=== PATIENT | female | born 1950 | race Caucasian/White ===

== ENCOUNTER 2020-11-03 13:02 | Outpatient (REF) | payer MEDICARE, SELFPAY ==
[2020-11-03 13:38] LABS: MANUAL DIFF FLAG NO
[2020-11-03 13:46] LABS: Basophils Absolute Auto 0.1 X10*3/uL (0.0-0.2); Basophils Percent Auto 0.8 % (0-2); Eosinophils Absolute Auto 0.1 X10*3/uL (0.0-0.4); Eosinophils Percent Auto 1.1 % (0-4); Hemoglobin 14.1 g/dl (12.0-16.0); Imm Gran Abs Auto 0.02 X10*3/uL (0.00-0.03); Imm Gran Pct Auto 0.3 % (0.0-0.4); Lymphocytes Absolute Auto 1.8 X10*3/uL (1.2-4.9); Lymphocytes Percent Auto 29.5 % (20-40); Mean Corpuscular Hemoglobin 30.1 pg (27.0-33.0); Mean Corpuscular Volume 93.8 fL (80-98); Mean Platelet Volume 12.4 fL (9.4-12.3); Monocytes Absolute Auto 0.4 X10*3/uL (0.1-1.2); Monocytes Percent Auto 5.7 % (2-11); Neutrophils Absolute Auto 3.8 X10*3/uL (2.0-8.3); Neutrophils Percent Auto 62.6 % (45-73); Platelet Count 210 X10*3/uL (160-400); Red Blood Count 4.69 X10*6/uL (4.20-5.50); Red Cell Distribution Width 12.6 % (11.0-16.0); White Blood Count 6.1 X10*3/uL (4.8-10.8)
[2020-11-03 13:56] LABS: Glucose Urine UA NEG (NEG); Leukocyte Esterase Urine 2+ (NEG); Nitrite Urine NEG (NEG); Specific Gravity - Urine 1.025 (1.005-1.025); UACC Culture Trigger YES; Urine Blood NEG (NEG); Urine Ketones NEG (NEG); Urine Protein NEG (NEG-TRACE)
[2020-11-03 13:59] LABS: Appearance Urine CLEAR; Color Urine YELLOW
[2020-11-03 14:23] LABS: Bacteria Urine 1+ /LPF; Squamous Epithelial Cell Urine 2+ /LPF
[2020-11-03 14:24] LABS: Alanine Aminotransferase 35 U/L (0-31); Albumin Level 4.4 g/dL (3.5-5.0); Alkaline Phosphatase 73 U/L (39-117); Anion Gap 13 (12-20); Aspartate Amino Transferase 24 U/L (5-31); Bilirubin Total 0.6 mg/dL (0.0-1.0); Blood Urea Nitrogen 15 mg/dL (9-16); Carbon Dioxide 30 mmol/L (22-29); Chloride 104 mmol/L (96-108); Cholesterol 177 mg/dL; Estimated Glomerular Filt Rate > 60; Glucose Fasting 100 mg/dL (60-99); HDL Cholesterol 67 mg/dL; LDL Cholesterol Calculated 97 mg/dl; Potassium 4.1 mmol/L (3.3-5.1); Sodium 143 mmol/L (135-145); Total Protein 7.2 g/dL (6.5-8.0); Triglycerides 65 mg/dL
[2020-11-03 14:33] LABS: Erythrocyte Sedimentation Rate 7 MM/HR (0-20)
[2020-11-03 14:44] LABS: TSH reflex Free T4 0.67 uIU/mL (0.32-4.0)
== END 2020-11-03 13:03 | disposition home or self-care (01) ==
LOC: HO.LAB 13:02
PROVIDERS: PCP Internal Medicine; Visit Provider Internal Medicine
DX: Z00.00 Encounter for general adult medical examination without abnormal findings (principal); I10 Essential (primary) hypertension
CPT/HCPCS: 36415; 80053; 80061; 81001; 81003; 84443; 85025; 85652; 87086

== ENCOUNTER 2021-03-08 11:49 | Outpatient (REF) | payer MEDICARE, SELFPAY ==
--- NOTE | ~2021-03-08 | XR_ITS ---
EXAMINATION: XR SHOULDER, RIGHT CLINICAL INFORMATION: Pain. COMPARISON: None TECHNIQUE: AP external rotation, Grashey, scapular Y, and axillary views of the right shoulder. FINDINGS: There is loss of right glenohumeral and AC joint space with periarticular spurring. No acute fracture, loose bodies or soft tissue swelling seen. XR/XR shoulder RT min 2V IMPRESSION: Degenerative changes right AC joint and right glenohumeral joint.
== END 2021-03-08 11:50 | disposition home or self-care (01) ==
LOC: HO.HOSX 11:49
PROVIDERS: Visit Provider Orthopaedic Surgery
DX: M25.511 Pain in right shoulder (principal)
CPT/HCPCS: 20610; 73030; 99212; J1040; J1100

== ENCOUNTER 2021-10-22 13:54 | Outpatient (REF) | payer MEDICARE, SELFPAY ==
--- NOTE | ~2021-10-22 | MM_ITS ---
EXAMINATION: MM SCREENING DIGITAL BREAST TOMOSYNTHESIS, BILATERAL CLINICAL INFORMATION: Screening. Asymptomatic. Prior mammography from [place] currently unavailable. Age 71. Prior history benign biopsy 1981. No known family history breast cancer. The lifetime risk of breast cancer based on the Tyrer-Cuzick Model is 5%. COMPARISON: None. TECHNIQUE: Digital breast tomosynthesis is performed in both the craniocaudal and mediolateral oblique views along with computer-aided detection (CAD). Synthesized 2D images are generated from the tomosynthesis. FINDINGS: There are scattered areas of fibroglandular density (ACR BI-RADS breast composition Category b). Breast tissue composition borders on predominantly fatty. Background stromal and fibroglandular densities are unremarkable. There is intramammary node mid upper outer left breast with peripheral fatty hilus on tomography. There is no significant mass or architectural abnormality. No abnormal calcifications. There are dermal lesions overlying the anterior upper and posterior midline lower left breast and dermal lesion overlying the inferior posterior medial right breast. The axilla are unremarkable. If prior outside mammography is made available, addendum will be made in an addendum report. MM/MM tomosynthesis screening BI IMPRESSION: No mammographic evidence of malignancy. ASSESSMENT: BI-RADS 2: Benign RECOMMENDATION: Routine annual mammography screening. This patient's information was entered into a reminder system with a target due date for their next mammogram.
== END 2021-10-22 13:55 | disposition home or self-care (01) ==
LOC: HO.MAMMO 13:54
PROVIDERS: Visit Provider Internal Medicine
DX: Z12.31 Encounter for screening mammogram for malignant neoplasm of breast (principal)
CPT/HCPCS: 77063; 77067

== ENCOUNTER 2022-03-05 13:45 | Emergency (ER) | payer MEDICARE, SELFPAY ==
--- NOTE | ~2022-03-05 | XR_ITS ---
EXAMINATION: XR SHOULDER, RIGHT CLINICAL INFORMATION: Atraumatic right shoulder pain. COMPARISON: 03/08/2021 right shoulder radiographs. TECHNIQUE: AP external rotation, Grashey, scapular Y, and axillary views of the right shoulder. FINDINGS: Mild right acromioclavicular and glenohumeral degenerative joint changes are seen. A small degenerative spurs seen off of the inferior articular surface of the humeral head. There is no acute fracture or dislocation. The soft tissues are unremarkable. XR/XR shoulder RT min 2V IMPRESSION: Mild right shoulder degenerative joint changes without acute abnormality or significant change.
[2022-03-05 14:19] VITALS: BP 149/72; PULSE 68; RESP 18; TEMP 37.1; O2SAT 99; BMI 25.1
--- NOTE | 2022-03-05 15:57 | ED_ITS ---
HPI - Extremity Problem General Chief complaint: Extremity Problem Stated complaint: shoulder inflammed Time Seen by Provider: 03/05/22 15:57 Source: patient Mode of arrival: ambulatory Limitations: no limitations History of Present Illness HPI Narrative: 71-year-old female with known right rotator cuff injury presents to the emergency department with complaints of right shoulder pain, worse with movement overhead motions. Patient tells me that she is followed by an orthopedic surgeon that has told her to get injections every 3 months and or surgery. Patient tells me she refused both of them. She tells me she has not seen her orthopedic doctor for a while, she reports that her pain is severe today and that is why she decided to come in. She denies numbness and tingling at this time however she tells me that from time to time she gets numbness and tingling down her right shoulder moving into her hands. Complaint: joint pain Onset (ago): month(s) Pain Consistency: constant Location: right Quality: aching Radiation: none Relieving factors: nothing Exacerbating factors: range of motion and other (overhead motion ) Associated symptoms: denies other symptoms Related Data Home Medications Medication Instructions Recorded Confirmed cholecalciferol (vitamin D3) 25 25 mcg PO DAILY 11/14/20 11/03/21 mcg (1,000 unit) capsule Previous Rx's Medication Instructions Recorded nabumetone 500 mg tablet 500 mg PO BID PRN pain 30 days #60 05/22/21 tabs dexlansoprazole 60 mg 60 mg PO DAILY 90 days #90 caps 11/02/21 capsule,biphase delayed release (Dexilant) hydrochlorothiazide 25 mg tablet 25 mg PO DAILY #90 tabs 11/19/21 enalapril maleate 2.5 mg tablet 2.5 mg PO DAILY #90 tabs 12/13/21 Allergies Allergy/AdvReac Type Severity Reaction Status Date / Time No Known Allergies Allergy Verified 11/03/21 03:03 [No Known Allergies*] Review of Systems Review of Systems: Constitutional : No Weight loss, No Fever, No Chills, No Fatigue, No Malaise ENT/Mouth : No sore throat, No Rhinorrhea Eyes: No Eye Pain, No Swelling, No Redness Cardiovascular : No Chest Pain, No SOB, No Dyspnea on Exertion, No Orthopnea, No Edema, No Palpitations Respiratory : No Cough, No Sputum, No Wheezing Gastrointestinal : No Nausea, No Vomiting, No Diarrhea, No Constipation, No abdominal Pain, No Hematochezia, No Melena Genitourinary : No Dysuria, No Urinary Frequency, No Hematuria, Musculoskeletal : + joint pain, No Myalgias, No Joint Swelling Skin : No Skin Lesions, No rash Neuro : No Weakness, No Numbness, No Dizziness, No Headache Psych : No Anxiety/Panic, No Depression All other systems reviewed and are negative Yes all other systems are reviewed and are negative [facility] Past Medical History Attestation statement: The following information was validated with the patient. Source: old records reviewed and nursing notes reviewed Surgical History H/O local excision of skin lesion History of cholecystectomy History of colonoscopy Family History Family History Father CVD (cardiovascular disease) Mother No problems noted. Daughter In good health Sister In good health Sister In good health Sister In good health Brother In good health Social History Social History Housing: Apartment Alcohol intake: never Patient Tobacco Use Status: Never used Tobacco Second Hand Smoke Exposure: Yes service: No Current occupational status: retired Physical Exam Vital Signs: Vital Signs: Last Vital Signs Temp 98.8 F 03/05/22 14:19 Pulse 68 03/05/22 14:19 Resp 18 03/05/22 14:19 BP 149/72 H 03/05/22 14:19 Pulse Ox 99 03/05/22 14:19 O2 Del Method 03/05/22 14:19 BMI result Body Mass Index 25.1 VSS Appearance: Alert.? Oriented X3.? No acute distress.? Head: Normocephalic, atraumatic, no step-offs or deformities Eyes: Pupils equal, round and reactive to light.? ENT: Pharynx normal.? Neck: Normal inspection.? Neck supple.? CVS: Normal heart rate and rhythm.? Pulses normal.? Respiratory: No respiratory distress.? Breath sounds normal.? Abdomen: Soft and nontender.? Skin: Skin warm and dry.? Normal skin color.? Normal skin turgor.? Extremities: No lower extremity edema.? No calf ttp. 5/5 strength to bilateral upper and lower extremities Full ROM to b/l shoulders, 2+ radial pulses equal and b/l. No wrist drop b/l Back: No midline tenderness, no C-spine tenderness, full range of motion, no CVA tenderness bilaterally Neuro: Oriented X 3.? No motor deficit.? No sensory deficit. CN 2-12 intact Course Reevaluation(s) Reevaluation #1: Educated, advised her to follow-up with her orthopedic surgeon as they did recommend cervical have injections and/or surgery. I explained to her that this cannot be 6 in emergency department. Will provide her with Toradol for pain. A t this time patient will be discharged home with strict return precautions. Advised her to return with new or worsening symptoms. Comfortable discharge home MDM - Extremity (Nontraumatic) MDM Narrative Medical decision making narrative: [id number] 71-year-old female presents with right-sided atraumatic shoulder pain worse with movement particularly overhead. Physical exam w/ pain w/ rom of right shoulder however, NV intact. No wrist drop b/l. Unlikely that this is complete ligament or tendon tear. Likely muscle strain or rotator cuff injury Advised patient that x-ray only works at fractures, dislocations soft tissue swelling, she will likely require an MRI for further evaluation of it is still bothering her. Plan at this time is imaging Medical Records Attestation: I reviewed the patient's medical records. Lab Data Attestation: I reviewed the patient's lab results. Critical Care Time Critical Care Time Critical Care Time: No Discharge Plan Discharge Clinical Impression: Pain in right shoulder Patient Disposition: Home, Self-Care Instructions: Arthralgia (ED), Shoulder Pain (ED), Warm Compress or Soak (ED) Additional Instructions: Take your medications as prescribed. If you were prescribed antibiotics today, it is important that you take your medication to their entirety, do not skip any doses, do not finish them early. Follow-up with your primary care provider this week. Return to the emergency department with new or worsening symptoms. Such as fevers, chills, chest pain, shortness of breath, nausea, vomiting, dizziness, headache, vision changes, lethargy In case of emergency call 911 No acute findings on your x-ray, that you should follow-up with your orthopedic doctor and/or orthopedic surgeon as you may require MRI for further evaluation Prescriptions: No Action hydrochlorothiazide 25 mg tablet 25 mg PO DAILY Qty: 90 1RF enalapril maleate 2.5 mg tablet 2.5 mg PO DAILY Qty: 90 1RF cholecalciferol (vitamin D3) 25 mcg (1,000 unit) capsule 25 mcg PO DAILY nabumetone 500 mg tablet 500 mg PO BID PRN (Reason: pain) 30 Days Qty: 60 5RF Dexilant 60 mg capsule,biphase delayed releas 60 mg PO DAILY 90 Days Qty: 90 3RF Referrals: [facility] [place] [Provider Group] - 2 weeks Denys Gonsalves MD [Primary Care Provider] - 2 days Stand Alone Forms: Work/School Release
[2022-03-05] MEDS: Ketorolac Tromethamine 15 MG/ML VIAL 30 MG IM (17:19)
== END 2022-03-05 17:29 | disposition home or self-care (01) ==
PROVIDERS: Emergency Provider Student in an Organized Health Care Education/Training Program; PCP Internal Medicine
DX: M25.511 Pain in right shoulder (principal); Z79.899 Other long term (current) drug therapy
CPT/HCPCS: 73030; 96372; 99283; 99284; J1885

== ENCOUNTER → 2022-04-12 11:34 | Outpatient (BNVA) | payer MEDICARE, SELFPAY | PROVIDERS: PCP Internal Medicine; Referring Provider Internal Medicine; Visit Provider Nurse Practitioner | DX: Z01.818 Encounter for other preprocedural examination (principal); Z86.010 Personal history of colon polyps | CPT/HCPCS: 99202 ==

== ENCOUNTER 2022-05-10 08:48 | Outpatient (REF) | payer OTHER, SELFPAY ==
[2022-05-10 09:17] LABS: MANUAL DIFF FLAG NO
[2022-05-10 09:49] LABS: Basophils Absolute Auto 0.1 X10*3/uL (0.0-0.2); Basophils Percent Auto 0.9 % (0-2); Eosinophils Absolute Auto 0.1 X10*3/uL (0.0-0.4); Eosinophils Percent Auto 1.6 % (0-4); Hematocrit 43.1 % (37.0-47.0); Imm Gran Abs Auto 0.03 X10*3/uL (0.00-0.03); Imm Gran Pct Auto 0.5 % (0.0-0.4); Lymphocytes Percent Auto 31.8 % (20-40); Mean Corpuscular HGB Conc 32.5 g/dl (31.0-35.0); Mean Corpuscular Hemoglobin 30.9 pg (27.0-33.0); Mean Corpuscular Volume 95.1 fL (80.0-98.0); Mean Platelet Volume 12.2 fL (9.4-12.3); Monocytes Absolute Auto 0.5 X10*3/uL (0.1-1.2); Monocytes Percent Auto 7.1 % (2-11); Neutrophils Absolute Auto 3.7 x10*3/uL (2.0-8.3); Neutrophils Percent Auto 58.1 % (45-73); Platelet Count 196 X10*3/uL (160-400); Red Blood Count 4.53 X10*6/uL (4.20-5.50); Red Cell Distribution Width 12.8 % (11.0-16.0); White Blood Count 6.4 X10*3/uL (4.8-10.8)
[2022-05-10 10:14] LABS: Alanine Aminotransferase 11 U/L (0-31); Albumin Level 4.2 g/dL (3.5-5.0); Alkaline Phosphatase 65 U/L (39-117); Anion Gap 15 (12-20); Aspartate Amino Transferase 14 U/L (5-31); Bilirubin Total 0.6 mg/dL (0.0-1.0); Blood Urea Nitrogen 21 mg/dL (9-16); Calcium 10.1 mg/dL (8.4-10.2); Carbon Dioxide 28 mmol/L (22-29); Chloride 104 mmol/L (96-108); Cholesterol 197 mg/dL; Estimated Glomerular Filt Rate > 60; Glucose Fasting 97 mg/dL (60-99); HDL Cholesterol 67 mg/dL; LDL Cholesterol Calculated 119 mg/dl; Potassium 4.1 mmol/L (3.3-5.1); Sodium 143 mmol/L (135-145); Total Protein 6.9 g/dL (6.5-8.0); Triglycerides 59 mg/dL
[2022-05-10 10:35] LABS: TSH reflex Free T4 0.91 uIU/mL (0.32-4.0); Vitamin D 25-OH Total 59.9 ng/mL (>30)
[2022-05-10 10:39] LABS: Appearance Urine Clear; Color Urine Yellow; Glucose Urine UA Negative (Negative); Leukocyte Esterase Urine Large (3+) (Negative); Nitrite Urine Negative (Negative); PH 5.5 (5.0-8.0); Specific Gravity - Urine 1.025 (1.005-1.025); Urine Blood Negative (Negative); Urine Ketones Trace mg/dL (Negative); Urine Protein Trace mg/dL (Neg-Trace)
[2022-05-10 10:48] LABS: Bacteria Urine 3+ (None Seen); Hyaline Casts Urine 0-2 /LPF (0-2); RBC Urine 0-2 /HPF (0-2); UACC Culture Trigger YES; WBC Urine 21-50 /HPF (0-5)
== END 2022-05-10 08:49 | disposition home or self-care (01) ==
LOC: HO.LAB 08:48
PROVIDERS: PCP Internal Medicine; Visit Provider Internal Medicine
DX: Z00.00 Encounter for general adult medical examination without abnormal findings (principal); I10 Essential (primary) hypertension; E55.9 Vitamin D deficiency, unspecified; E78.00 Pure hypercholesterolemia, unspecified
CPT/HCPCS: 36415; 80053; 80061; 81001; 82306; 84443; 85025; 87086

== ENCOUNTER 2022-07-27 13:16 | Emergency (ER) | payer OTHER, SELFPAY ==
--- NOTE | ~2022-07-27 | XR_ITS ---
EXAMINATION: XR humerus, SHOULDER , LEFT CLINICAL INFORMATION: Pain COMPARISON: None available at the time of this dictation. TECHNIQUE: AP external rotation, Grashey, scapular Y, and axillary views of the shoulder. Frontal lateral left humerus. FINDINGS: BONES: There is no fracture or dislocation, no osteolytic or osteoblastic lesion. JOINTS: Degenerative osteoarthritic changes of the glenohumeral joints evident by narrowing of joint space and developed osteophyte from the edges of articular surfaces. There is mild degenerative osteoarthritis of the acromioclavicular joint. SOFT TISSUE AND INCLUDED LUNG: Normal. XR/XR shoulder LT min 2V IMPRESSION: 1. 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 2. No fracture or dislocation.
--- NOTE | ~2022-07-27 | XR_ITS ---
EXAMINATION: XR humerus, SHOULDER , LEFT CLINICAL INFORMATION: Pain COMPARISON: None available at the time of this dictation. TECHNIQUE: AP external rotation, Grashey, scapular Y, and axillary views of the shoulder. Frontal lateral left humerus. FINDINGS: BONES: There is no fracture or dislocation, no osteolytic or osteoblastic lesion. JOINTS: Degenerative osteoarthritic changes of the glenohumeral joints evident by narrowing of joint space and developed osteophyte from the edges of articular surfaces. There is mild degenerative osteoarthritis of the acromioclavicular joint. SOFT TISSUE AND INCLUDED LUNG: Normal. XR/XR humerus LT IMPRESSION: 1. 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 2. No fracture or dislocation.
--- NOTE | ~2022-07-27 | XR_ITS ---
EXAMINATION: XR THORACIC SPINE CLINICAL INFORMATION: Compression fracture. COMPARISON: Chest radiograph done earlier the same day. Chest radiograph dated 05/19/2019. TECHNIQUE: 4 views of the thoracic spine were obtained. FINDINGS: Mild S-shaped scoliotic curvature of the thoracolumbar spine. 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 Findings are unchanged when compared to the radiograph dated 05/19/2019. No acute fracture or subluxation. No new loss of vertebral body height. No concerning lytic or blastic osseous lesion. Right upper quadrant surgical clips. XR/XR thoracic spine 3V IMPRESSION: 1. No acute fracture or subluxation. 2. 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
--- NOTE | ~2022-07-27 | XR_ITS ---
EXAMINATION: XR chest 2V CLINICAL INFORMATION: Pain COMPARISON: 2019 TECHNIQUE: XR chest 2V Lungs and Julieta: Both lungs are clear. Pleura: Normal. Costophrenic angles are sharp. No pneumothorax. Heart: The heart is normal in size. Mediastinum: The mediastinum is within normal limits.. Bones: There is compression fracture of lower dorsal vertebra seen on lateral view indeterminant age. XR/XR chest 2V IMPRESSION: 1. No radiographic evidence of acute cardiopulmonary disease. 2. Compression fracture lower dorsal vertebra indeterminant age. May consider correlation with follow-up x-ray dorsal spine to better visualize the fracture and/or MRI to determine the age of the fracture.
[2022-07-27 14:55] VITALS: BP 134/71; PULSE 80; RESP 16; TEMP 36.6; O2SAT 96; BMI 25.9
--- NOTE | 2022-07-27 14:56 | ED.EXTPRO ---
HPI - Extremity Problem General Chief complaint: Extremity Problem <MAC Das Last Filed: 07/27/22 15:01> Stated complaint: Arm pain/No Inj <MAC Das Last Filed: 07/27/22 15:01> Time Seen by Provider: 07/27/22 16:31 <MAC Das - Last Filed: 07/27/22 15:01> Source: patient <MAC Olivares Last Filed: 07/27/22 18:53> Mode of arrival: ambulatory <MAC Olivares Last Filed: 07/27/22 18:53> History of Present Illness HPI Narrative: 72-year-old female with a past medical history of HTN, GERD, vitamin-D deficiency, degenerative joint disease, presenting to the ED complaining of atraumatic left arm pain x1 week. Admits to similar symptoms in the past with arthritis to contralateral side. Has been taking Motrin at home with some relief. Denies known injury, trauma or fall. Denies chest pain, shortness of breath, numbness, tingling, weakness, abdominal pain <MAC Olivares Last Filed: 07/27/22 18:53> MD Complaint: extremity pain <MAC Olivares Last Filed: 07/27/22 18:53> Related Data Home medications: Home Medications Medication Instructions Recorded Confirmed cholecalciferol (vitamin D3) 25 25 mcg PO DAILY 11/14/20 11/03/21 mcg (1,000 unit) capsule Previous Rx's Medication Instructions Recorded nabumetone 500 mg tablet 500 mg PO BID PRN pain 30 days #60 05/22/21 tabs peg 3350-electrolytes 236 240 ml PO Q10M 1 day #4,000 mL 04/12/22 gram-22.74 gram-6.74 gram-5.86 gram solution (Golytely) hydrochlorothiazide 25 mg tablet 25 mg PO DAILY #90 tabs 05/21/22 enalapril maleate 2.5 mg tablet 2.5 mg PO DAILY #90 tabs 07/12/22 dexlansoprazole 60 mg 60 mg PO DAILY 90 days #90 caps 07/16/22 capsule,biphase delayed release (Dexilant) acetaminophen 500 mg tablet 500 mg PO Q6H PRN fever or pain 11/12/22 (Tylenol Extra Strength) #14 tabs lidocaine 5 % topical patch 1 patch topical DAILY PRN pain #30 07/27/22 (Lidoderm) ea naproxen 500 mg tablet 500 mg PO BID PRN pain 10 days #20 07/27/22 tabs <MAC Das - Last Filed: 07/27/22 15:01> Allergies/Adverse reactions: Allergies Allergy/AdvReac Type Severity Reaction Status Date / Time No Known Allergies Allergy Verified 07/27/22 14:59 [No Known Allergies*] <MAC Dsa - Last Filed: 07/27/22 15:01> Review of Systems Review of Systems: Constitutional: No Fever, No Chills, No Fatigue, No Malaise ENT/Mouth: No Ear Pain, No Nasal Congestion, No sore throat, No Rhinorrhea, No Swallowing Difficulty Eyes: No Eye Pain, No Swelling, No Redness, No Vision Changes Cardiovascular: No Chest Pain, No SOB, No Edema, No Palpitations Respiratory: No Cough, No Sputum, No Dyspnea Gastrointestinal: No Nausea, No Vomiting, No Diarrhea, No Constipation, No Abdominal pain Genitourinary: No Dysuria, No Urinary Frequency, No Hematuria, No Urinary Incontinence/retention, No Flank Pain Musculoskeletal: + joint pain, No Myalgias, No Joint Swelling Skin: No Skin Lesions, No rash Neuro: No Weakness, No Numbness, No Paresthesias, No Dizziness, No Headache <MAC Olivares - Last Filed: 07/27/22 18:53> Yes all other systems are reviewed and are negative <MAC Olivares Last Filed: 07/27/22 18:53> Constitutional: Constitutional: Reports as per HPI <MAC Olivares Last Filed: 07/27/22 18:53> PMF Past Medical History Attestation statement: The following information was validated with the patient. <MAC Olivares Last Filed: 07/27/22 18:53> Medical History: Medical History Benign essential hypertension Degenerative joint disease of right shoulder GERD without esophagitis Overweight (BMI 25.0-29.9) Vitamin D deficiency <MAC Das Last Filed: 07/27/22 15:01> Surgical History: Surgical History H/O local excision of skin lesion History of cholecystectomy History of colonoscopy <MAC Das - Last Filed: 07/27/22 15:01> Family History Family History: Family History Father CVD (cardiovascular disease) Mother No problems noted. Daughter In good health Sister In good health Sister In good health Sister In good health Brother In good health <MAC Das - Last Filed: 07/27/22 15:01> Social History Social History: Social History Housing: Apartment Alcohol intake: never Patient Tobacco Use Status: Never used Tobacco Second Hand Smoke Exposure: Yes Advance Directives: No Advance Directives Information Provided: Yes service: No Current occupational status: retired <MAC Das - Last Filed: 07/27/22 15:01> Physical Exam Vital Signs: Vital Signs: Last Vital Signs Temp 97.9 F 07/27/22 14:55 Pulse 80 07/27/22 14:55 Resp 16 07/27/22 14:55 BP 134/71 07/27/22 14:55 Pulse Ox 96 07/27/22 14:55 O2 Del Method 07/27/22 14:55 BMI result Body Mass Index 25.9 <MAC Das - Last Filed: 07/27/22 15:01> Vital Signs: Last Vital Signs Temp 97.9 F 07/27/22 14:55 Pulse 80 07/27/22 14:55 Resp 16 07/27/22 14:55 BP 134/71 07/27/22 14:55 Pulse Ox 96 07/27/22 14:55 O2 Del Method 07/27/22 14:55 BMI result Body Mass Index 25.9 <MAC Olivares - Last Filed: 07/27/22 18:53> Const: General: cooperative, healthy appearing and no acute distress <MAC Olivares - Last Filed: 07/27/22 18:53> Orientation/consciousness: patient oriented x3 <MAC Olivares - Last Filed: 07/27/22 18:53> Limitations: no limitations <MAC Olivares - Last Filed: 07/27/22 18:53> HEENT: Head: Yes normal to inspection and Yes atraumatic <MAC Olivares - Last Filed: 07/27/22 18:53> Ears: hearing grossly normal bilaterally <MAC Olivares - Last Filed: 07/27/22 18:53> General nose exam: Normal external nose present <MAC Olivares - Last Filed: 07/27/22 18:53> Face and sinus: Yes normal facial exam <MAC Olivares - Last Filed: 07/27/22 18:53> Eyes: General: appearance normal, both eyes and all related structures <MAC Olivares - Last Filed: 07/27/22 18:53> EOM: EOMs intact bilaterally <MAC Olivares - Last Filed: 07/27/22 18:53> Neck: Neck: Yes normal visual inspection and Yes no meningeal signs <MAC Olivares - Last Filed: 07/27/22 18:53> Resp: Effort & Inspection: normal respiratory effort and no respiratory distress <MAC Olivares - Last Filed: 07/27/22 18:53> Auscultation: clear to auscultation bilaterally, no crackles, no rales, no rhonchi and no wheezes <MAC Olivares - Last Filed: 07/27/22 18:53> Cardio: Rate: regular rate <MAC Olivares - Last Filed: 07/27/22 18:53> Heart sounds: S1 normal heart sound present and S2 normal heart sound present <MAC Olivares - Last Filed: 07/27/22 18:53> Peripheral pulses: Peripheral pulses 2+ throughout <MAC Olivares - Last Filed: 07/27/22 18:53> Back/Spine/Pelvis: Other: No midline thoracic/lumbar spinous tenderness/step-off or deformity <MAC Olivares - Last Filed: 07/27/22 18:53> Skin: Rashes: no rashes <MAC Olivares - Last Filed: 07/27/22 18:53> Wounds: no wounds <MAC Olivares - Last Filed: 07/27/22 18:53> Neuro: General: patient oriented x3, gait normal, tone normal, moves all extremities and no meningeal signs <MAC Olivares Last Filed: 07/27/22 18:53> Gait exam (Neuro): Normal gait present <MAC Olivares Last Filed: 07/27/22 18:53> Extrem: Other: + mild right shoulder/upper humerus tenderness to palpation. No appreciable deformity/swelling/erythema or ecchymosis. Neurovascularly intact distally. Full range of motion intact. <MAC Olivares Last Filed: 07/27/22 18:53> General: Yes normal to inspection <MAC Olivares Last Filed: 07/27/22 18:53> Course Course Course Narrative: XR shoulder LT min 2V/XR humerus LT IMPRESSION:? 1.? 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 2.? No fracture or dislocation. ? XR chest 2V IMPRESSION: 1.? No radiographic evidence of acute cardiopulmonary disease. 2.? Compression fracture lower dorsal vertebra indeterminant age. May consider correlation with follow-up x-ray dorsal spine to better visualize the fracture and/or MRI to determine the age of the fracture. > patient denies back pain at present. Denies known vertebral fracture/injury > obtain dedicated thoracic x-ray -no leukocytosis. Troponin 10.7 > will obtain 3 hour repeat -1831--repeat troponin without rise, mi unlikely XR thoracic spine 3V IMPRESSION: 1.? No acute fracture or subluxation. ? 2.? 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 <MAC Olivares Last Filed: 07/27/22 18:53> Reevaluation(s) Reevaluation #1: RME - 72 YO F c PMHx of HTN, arthritis presenting to the ED c c/o left shoulder pain x 1 week atraumatic. She had it before on the right shoulder but that has resolved. Denies CP/SOB/paresthesias or any other cardiac related complaints. Has been trying tylenol/motrin and mild symptomatic relief. Plan: Stable will obtain Xray of left shoulder/arm. EKG no labs due to patient denies any other symptoms reports she believes it arthritis. <MAC Das - Last Filed: 07/27/22 15:01> Time: 14:56 <MAC Das - Last Filed: 07/27/22 15:01> MDM - Extremity (Nontraumatic) MDM Narrative Medical decision making narrative: 72-year-old female with a past medical history of HTN, GERD, vitamin-D deficiency, degenerative joint disease, presenting to the ED complaining of atraumatic left arm pain x1 week. On exam vital signs stable, NAD, nontoxic appearing, physical exam as above with reproducible right arm/shoulder tenderness. Concern for arthritis vs ? Fracture vs atypical ACS. Low suspicion for dissection, pulmonary embolism, or pneumonia Plan: EKG, labs, imaging <MAC Olivares - Last Filed: 07/27/22 18:53> Medical Records Attestation: I reviewed the patient's medical records. <MAC Olivares - Last Filed: 07/27/22 18:53> Lab Data Attestation: I reviewed the patient's lab results. <MAC Olivares - Last Filed: 07/27/22 18:53> Result diagrams: : 07/27/22 15:21 07/27/22 15:21 <MAC Das - Last Filed: 07/27/22 15:01> Labs: Lab Results 07/27/22 07/27/22 07/27/22 Range/Units 15:21 15:21 15:21 WBC 7.3 (4.8-10.8) X10*3/uL RBC 4.84 (4.20-5.50) X10*6/uL Hgb 14.5 (12.0-16.0) g/dl Hct 45.7 (37.0-47.0) % MCV 94.4 (80.0-98.0) fL MCH 30.0 (27.0-33.0) pg MCHC 31.7 (31.0-35.0) g/dl RDW 12.7 (11.0-16.0) % Plt Count 229 (160-400) X10*3/uL MPV 12.0 (9.4-12.3) fL Immature Gran % (Auto) 0.3 (0.0-0.4) % Neut % (Auto) 62.7 (45-73) % Lymph % (Auto) 27.8 (20-40) % [place] % (Auto) 6.9 (2-11) % Eos % (Auto) 1.6 (0-4) % Baso % (Auto) 0.7 (0-2) % Lymph # (Auto) 2.0 (1.2-4.9) X10*3/uL [place] # (Auto) 0.5 (0.1-1.2) X10*3/uL Eos # (Auto) 0.1 (0.0-0.4) X10*3/uL Baso # (Auto) 0.1 (0.0-0.2) X10*3/uL Abs Immat Gran (auto) 0.02 (0.00-0.03) X10*3/uL Absolute Neuts (auto) 4.6 (2.0-8.3) x10*3/uL Absolute Nucleated RBC 0.000 (0.0-0.012) X10*3/uL Nucleated RBC % (auto) 0.0 (0.0-0.2) /100WBC PT 11.1 (10.0-13.1) SEC INR 1.0 (0.9-1.1) Sodium 142 (135-145) mmol/L Potassium 3.9 (3.3-5.1) mmol/L Chloride 102 (96-108) mmol/L Carbon Dioxide 26 (22-29) mmol/L Anion Gap 18 (12-20) BUN 17 H (9-16) mg/dL Creatinine 0.80 (0.5-1.4) mg/dL Estim Creat Clear Calc 52.9 Estimated GFR > 60 Random Glucose 96 (60-115) mg/dL Calcium 10.7 H (8.4-10.2) mg/dL Magnesium 2.1 (1.6-2.6) mg/dL Total Bilirubin 0.4 (0.0-1.0) mg/dL AST 17 (5-31) U/L ALT 21 (0-31) U/L Alkaline Phosphatase 73 (39-117) U/L Troponin I High Sens (<3.5-17.0) ng/L Total Protein 7.6 (6.5-8.0) g/dL Albumin 4.6 (3.5-5.0) g/dL Hold Green Top 07/27/22 07/27/22 07/27/22 Range/Units 15:21 15:21 18:00 WBC (4.8-10.8) X10*3/uL RBC (4.20-5.50) X10*6/uL Hgb (12.0-16.0) g/dl Hct (37.0-47.0) % MCV (80.0-98.0) fL MCH (27.0-33.0) pg MCHC (31.0-35.0) g/dl RDW (11.0-16.0) % Plt Count (160-400) X10*3/uL MPV (9.4-12.3) fL Immature Gran % (Auto) (0.0-0.4) % Neut % (Auto) (45-73) % Lymph % (Auto) (20-40) % [place] % (Auto) (2-11) % Eos % (Auto) (0-4) % Baso % (Auto) (0-2) % Lymph # (Auto) (1.2-4.9) X10*3/uL [place] # (Auto) (0.1-1.2) X10*3/uL Eos # (Auto) (0.0-0.4) X10*3/uL Baso # (Auto) (0.0-0.2) X10*3/uL Abs Immat Gran (auto) (0.00-0.03) X10*3/uL Absolute Neuts (auto) (2.0-8.3) x10*3/uL Absolute Nucleated RBC (0.0-0.012) X10*3/uL Nucleated RBC % (auto) (0.0-0.2) /100WBC PT (10.0-13.1) SEC INR (0.9-1.1) Sodium (135-145) mmol/L Potassium (3.3-5.1) mmol/L Chloride (96-108) mmol/L Carbon Dioxide (22-29) mmol/L Anion Gap (12-20) BUN (9-16) mg/dL Creatinine (0.5-1.4) mg/dL Estim Creat Clear Calc Estimated GFR Random Glucose (60-115) mg/dL Calcium (8.4-10.2) mg/dL Magnesium (1.6-2.6) mg/dL Total Bilirubin (0.0-1.0) mg/dL AST (5-31) U/L ALT (0-31) U/L Alkaline Phosphatase (39-117) U/L Troponin I High Sens 10.7 10.0 (<3.5-17.0) ng/L Total Protein (6.5-8.0) g/dL Albumin (3.5-5.0) g/dL Hold Green Top See Note <MAC Das - Last Filed: 07/27/22 15:01> Lab Results 07/27/22 07/27/22 07/27/22 Range/Units 15:21 15:21 15:21 WBC 7.3 (4.8-10.8) X10*3/uL RBC 4.84 (4.20-5.50) X10*6/uL Hgb 14.5 (12.0-16.0) g/dl Hct 45.7 (37.0-47.0) % MCV 94.4 (80.0-98.0) fL MCH 30.0 (27.0-33.0) pg MCHC 31.7 (31.0-35.0) g/dl RDW 12.7 (11.0-16.0) % Plt Count 229 (160-400) X10*3/uL MPV 12.0 (9.4-12.3) fL Immature Gran % (Auto) 0.3 (0.0-0.4) % Neut % (Auto) 62.7 (45-73) % Lymph % (Auto) 27.8 (20-40) % [place] % (Auto) 6.9 (2-11) % Eos % (Auto) 1.6 (0-4) % Baso % (Auto) 0.7 (0-2) % Lymph # (Auto) 2.0 (1.2-4.9) X10*3/uL [place] # (Auto) 0.5 (0.1-1.2) X10*3/uL Eos # (Auto) 0.1 (0.0-0.4) X10*3/uL Baso # (Auto) 0.1 (0.0-0.2) X10*3/uL Abs Immat Gran (auto) 0.02 (0.00-0.03) X10*3/uL Absolute Neuts (auto) 4.6 (2.0-8.3) x10*3/uL Absolute Nucleated RBC 0.000 (0.0-0.012) X10*3/uL Nucleated RBC % (auto) 0.0 (0.0-0.2) /100WBC PT 11.1 (10.0-13.1) SEC INR 1.0 (0.9-1.1) Sodium 142 (135-145) mmol/L Potassium 3.9 (3.3-5.1) mmol/L Chloride 102 (96-108) mmol/L Carbon Dioxide 26 (22-29) mmol/L Anion Gap 18 (12-20) BUN 17 H (9-16) mg/dL Creatinine 0.80 (0.5-1.4) mg/dL Estim Creat Clear Calc 52.9 Estimated GFR > 60 Random Glucose 96 (60-115) mg/dL Calcium 10.7 H (8.4-10.2) mg/dL Magnesium 2.1 (1.6-2.6) mg/dL Total Bilirubin 0.4 (0.0-1.0) mg/dL AST 17 (5-31) U/L ALT 21 (0-31) U/L Alkaline Phosphatase 73 (39-117) U/L Troponin I High Sens (<3.5-17.0) ng/L Total Protein 7.6 (6.5-8.0) g/dL Albumin 4.6 (3.5-5.0) g/dL Hold Green Top 07/27/22 07/27/22 07/27/22 Range/Units 15:21 15:21 18:00 WBC (4.8-10.8) X10*3/uL RBC (4.20-5.50) X10*6/uL Hgb (12.0-16.0) g/dl Hct (37.0-47.0) % MCV (80.0-98.0) fL MCH (27.0-33.0) pg MCHC (31.0-35.0) g/dl RDW (11.0-16.0) % Plt Count (160-400) X10*3/uL MPV (9.4-12.3) fL Immature Gran % (Auto) (0.0-0.4) % Neut % (Auto) (45-73) % Lymph % (Auto) (20-40) % [place] % (Auto) (2-11) % Eos % (Auto) (0-4) % Baso % (Auto) (0-2) % Lymph # (Auto) (1.2-4.9) X10*3/uL [place] # (Auto) (0.1-1.2) X10*3/uL Eos # (Auto) (0.0-0.4) X10*3/uL Baso # (Auto) (0.0-0.2) X10*3/uL Abs Immat Gran (auto) (0.00-0.03) X10*3/uL Absolute Neuts (auto) (2.0-8.3) x10*3/uL Absolute Nucleated RBC (0.0-0.012) X10*3/uL Nucleated RBC % (auto) (0.0-0.2) /100WBC PT (10.0-13.1) SEC INR (0.9-1.1) Sodium (135-145) mmol/L Potassium (3.3-5.1) mmol/L Chloride (96-108) mmol/L Carbon Dioxide (22-29) mmol/L Anion Gap (12-20) BUN (9-16) mg/dL Creatinine (0.5-1.4) mg/dL Estim Creat Clear Calc Estimated GFR Random Glucose (60-115) mg/dL Calcium (8.4-10.2) mg/dL Magnesium (1.6-2.6) mg/dL Total Bilirubin (0.0-1.0) mg/dL AST (5-31) U/L ALT (0-31) U/L Alkaline Phosphatase (39-117) U/L Troponin I High Sens 10.7 10.0 (<3.5-17.0) ng/L Total Protein (6.5-8.0) g/dL Albumin (3.5-5.0) g/dL Hold Green Top See Note <MAC Olivares - Last Filed: 07/27/22 18:53> ECG Data Attestation EKG: I personally reviewed and interpreted this ECG as follows: <MAC Olivares - Last Filed: 07/27/22 18:53> ECG interpretation date: 07/27/22 <MAC Olivares Last Filed: 07/27/22 18:53> ECG interpretation time: 14:59 <MAC Olivares - Last Filed: 07/27/22 18:53> Interpretation: EKG normal sinus rhythm at a rate of 76. P urine novel 142. QTC 461. No significant change when compared to priors. <MAC Olivares - Last Filed: 07/27/22 18:53> Discharge Plan Discharge Clinical Impression: Osteoarthritis <MAC Das - Last Filed: 07/27/22 15:01> Patient Disposition: Home, Self-Care <MAC Das - Last Filed: 07/27/22 15:01> Instructions: Osteoarthritis (ED) <MAC Das - Last Filed: 07/27/22 15:01> Additional Instructions: Your blood work was reassuring. Your x-ray shows osteoarthritis. Tylenol will help with pain. Additionally naproxen as an anti-inflammatory/pain medication, take with food. Lidoderm patches are numbing patches apply to painful area The dedicated x-ray of her back shows a probable congenital deformity. Please follow-up with her primary care doctor If he developed any urinary incontinence/retention, increasing or unremitting pain, weakness, fever return to the emergency department Almaraz an?lisis de jose g fue tranquilizador. Almaraz radiograf?a muestra osteoartritis. Tylenol ayudar? con el dolor. Adem?s, el naproxeno neida medicamento antiinflamatorio/analg?sico, t?archuleta con alimentos. Los parches de Lidoderm son parches anest?sicos que se aplican en el ?vee dolorida La radiograf?a dedicada de almaraz espalda muestra kate probable deformidad maria guadalupe?jorge. Por favor, emma un seguimiento con almaraz m?dico de atenci?n primaria. Si desarroll? incontinencia/retenci?n urinaria, dolor creciente o incesante, debilidad, fiebre, regrese al departamento de emergencias. <MAC Das - Last Filed: 07/27/22 15:01> Prescriptions: New acetaminophen [Tylenol Extra Strength] 500 mg tablet 500 mg PO Q6H PRN (Reason: fever or pain) Qty: 14 0RF lidocaine [Lidoderm] 5 % adhesive patch,medicated 1 patch topical DAILY MDD remove after 12 hours PRN (Reason: pain) Qty: 30 0RF Rx Instructions: leave on most painful area for up to 12 hrs naproxen 500 mg tablet 500 mg PO BID PRN (Reason: pain) 10 Days Qty: 20 0RF No Action hydrochlorothiazide 25 mg tablet 25 mg PO DAILY Qty: 90 1RF enalapril maleate 2.5 mg tablet 2.5 mg PO DAILY Qty: 90 1RF Dexilant 60 mg capsule,biphase delayed releas 60 mg PO DAILY 90 Days Qty: 90 3RF cholecalciferol (vitamin D3) 25 mcg (1,000 unit) capsule 25 mcg PO DAILY nabumetone 500 mg tablet 500 mg PO BID PRN (Reason: pain) 30 Days Qty: 60 5RF peg 3350-electrolytes [Golytely] 236-22.74-6.74 -5.86 gram recon soln 240 ml PO Q10M 1 Days Qty: 4000 0RF Rx Instructions: until fecal effluent is clear; do not exceed a total volume of 2,000 mL <MAC Das - Last Filed: 07/27/22 15:01> Referrals: Denys Gonsalves MD [Primary Care Provider] - 3 days Sylvie Richardson MD [Physician] - <MAC Das - Last Filed: 07/27/22 15:01> Print Language: Hungarian <MAC Das - Last Filed: 07/27/22 15:01>
--- NOTE | 2022-07-27 14:59 | ECG_ITS ---
Test Reason : LEFT ARM PAIN Blood Pressure : / mmHG Vent. Rate : 076 BPM Atrial Rate : 076 BPM P-R Int : 142 ms QRS Dur : 092 ms QT Int : 410 ms P-R-T Axes : 049 -26 028 degrees QTc Int : 461 ms Normal sinus rhythm Incomplete right bundle branch block Minimal voltage criteria for LVH, may be normal variant ( R in aVL ) Abnormal ECG When compared with ECG of 19-MAY-2019 15:47, No significant change was found Referred By: Whitley Hanks Electronically Signed By:BECCA BASSETT MD
[2022-07-27 15:27] LABS: MANUAL DIFF FLAG NO
[2022-07-27 15:29] LABS: Basophils Absolute Auto 0.1 X10*3/uL (0.0-0.2); Basophils Percent Auto 0.7 % (0-2); Eosinophils Absolute Auto 0.1 X10*3/uL (0.0-0.4); Eosinophils Percent Auto 1.6 % (0-4); Hematocrit 45.7 % (37.0-47.0); Hemoglobin 14.5 g/dl (12.0-16.0); Imm Gran Abs Auto 0.02 X10*3/uL (0.00-0.03); Imm Gran Pct Auto 0.3 % (0.0-0.4); Lymphocytes Percent Auto 27.8 % (20-40); Mean Corpuscular HGB Conc 31.7 g/dl (31.0-35.0); Mean Corpuscular Volume 94.4 fL (80.0-98.0); Monocytes Absolute Auto 0.5 X10*3/uL (0.1-1.2); Monocytes Percent Auto 6.9 % (2-11); Neutrophils Absolute Auto 4.6 x10*3/uL (2.0-8.3); Neutrophils Percent Auto 62.7 % (45-73); Platelet Count 229 X10*3/uL (160-400); Red Blood Count 4.84 X10*6/uL (4.20-5.50); Red Cell Distribution Width 12.7 % (11.0-16.0); White Blood Count 7.3 X10*3/uL (4.8-10.8)
[2022-07-27 15:39] LABS: Prothrombin Time 11.1 SEC (10.0-13.1)
[2022-07-27 16:20] LABS: Alanine Aminotransferase 21 U/L (0-31); Albumin Level 4.6 g/dL (3.5-5.0); Alkaline Phosphatase 73 U/L (39-117); Anion Gap 18 (12-20); Aspartate Amino Transferase 17 U/L (5-31); Bilirubin Total 0.4 mg/dL (0.0-1.0); Blood Urea Nitrogen 17 mg/dL (9-16); Calcium 10.7 mg/dL (8.4-10.2); Carbon Dioxide 26 mmol/L (22-29); Chloride 102 mmol/L (96-108); Creatinine Clr Calc Pharmacy 52.9; Estimated Glomerular Filt Rate > 60; Glucose Random 96 mg/dL (60-115); Magnesium 2.1 mg/dL (1.6-2.6); Potassium 3.9 mmol/L (3.3-5.1); Sodium 142 mmol/L (135-145); Total Protein 7.6 g/dL (6.5-8.0)
[2022-07-27 16:27] LABS: Troponin-I High Sensitivity 10.7 ng/L (<3.5-17.0)
--- NOTE | 2022-07-27 16:32 | ED.GENADULT ---
HPI - General Adult General Chief complaint: Extremity Problem Stated complaint: Arm pain/No Inj Time Seen by Provider: 07/27/22 16:31 Related Data Home Medications Medication Instructions Recorded Confirmed cholecalciferol (vitamin D3) 25 25 mcg PO DAILY 11/14/20 11/03/21 mcg (1,000 unit) capsule Previous Rx's Medication Instructions Recorded nabumetone 500 mg tablet 500 mg PO BID PRN pain 30 days #60 05/22/21 tabs peg 3350-electrolytes 236 240 ml PO Q10M 1 day #4,000 mL 04/12/22 gram-22.74 gram-6.74 gram-5.86 gram solution (Golytely) hydrochlorothiazide 25 mg tablet 25 mg PO DAILY #90 tabs 05/21/22 enalapril maleate 2.5 mg tablet 2.5 mg PO DAILY #90 tabs 07/12/22 dexlansoprazole 60 mg 60 mg PO DAILY 90 days #90 caps 07/16/22 capsule,biphase delayed release (Dexilant) Allergies Allergy/AdvReac Type Severity Reaction Status Date / Time No Known Allergies Allergy Verified 07/27/22 14:59 [No Known Allergies*] Review of Systems Review of Systems: Yes all other systems are reviewed and are negative Constitutional: Constitutional: Reports as per [facility] Past Medical History Attestation statement: The following information was validated with the patient. Medical History Benign essential hypertension Degenerative joint disease of right shoulder GERD without esophagitis Overweight (BMI 25.0-29.9) Vitamin D deficiency Surgical History H/O local excision of skin lesion History of cholecystectomy History of colonoscopy Family History Family History Father CVD (cardiovascular disease) Mother No problems noted. Daughter In good health Sister In good health Sister In good health Sister In good health Brother In good health Social History Social History Housing: Apartment Alcohol intake: never Patient Tobacco Use Status: Never used Tobacco Second Hand Smoke Exposure: Yes service: No Current occupational status: retired Physical Exam ED Vital Signs: Vital Signs - 24 hr 07/27/22 14:55 Temperature 97.9 F Pulse Rate 80 Respiratory Rate 16 Blood Pressure 134/71 Pulse Oximetry 96 Oxygen Delivery Method Room Air BMI result Body Mass Index 25.9 Const General: cooperative, healthy appearing and no acute distress Orientation/consciousness: patient oriented x3 Limitations: no limitations HENMT Head: Yes normal to inspection and Yes atraumatic Ears: hearing grossly normal bilaterally General nose exam: Normal external nose present Face and sinus: Yes normal facial exam Eyes General: appearance normal, both eyes and all related structures EOM: EOMs intact bilaterally Neck Neck: Yes normal visual inspection and Yes no meningeal signs Resp Effort & Inspection: normal respiratory effort and no respiratory distress Auscultation: clear to auscultation bilaterally Cardio Rate: regular rate Heart sounds: S1 normal heart sound present and S2 normal heart sound present GI Inspection: Yes normal to inspection Palpation (GI): Soft to palpation, nontender, no guarding and not rigid General: Yes no CVA tenderness Back/Spine/Pelvis Back: no CVA tenderness Skin Rashes: no rashes Wounds: no wounds Neuro General: patient oriented x3, tone normal and no meningeal signs Gait exam (Neuro): Normal gait present Extrem General: Yes normal to inspection Medical Decision Making Lab Data Result diagrams: 07/27/22 15:21 07/27/22 15:21 Labs: Lab Results 07/27/22 07/27/22 07/27/22 Range/Units 15:21 15:21 15:21 WBC 7.3 (4.8-10.8) X10*3/uL RBC 4.84 (4.20-5.50) X10*6/uL Hgb 14.5 (12.0-16.0) g/dl Hct 45.7 (37.0-47.0) % MCV 94.4 (80.0-98.0) fL MCH 30.0 (27.0-33.0) pg MCHC 31.7 (31.0-35.0) g/dl RDW 12.7 (11.0-16.0) % Plt Count 229 (160-400) X10*3/uL MPV 12.0 (9.4-12.3) fL Immature Gran % (Auto) 0.3 (0.0-0.4) % Neut % (Auto) 62.7 (45-73) % Lymph % (Auto) 27.8 (20-40) % Preston % (Auto) 6.9 (2-11) % Eos % (Auto) 1.6 (0-4) % Baso % (Auto) 0.7 (0-2) % Lymph # (Auto) 2.0 (1.2-4.9) X10*3/uL Preston # (Auto) 0.5 (0.1-1.2) X10*3/uL Eos # (Auto) 0.1 (0.0-0.4) X10*3/uL Baso # (Auto) 0.1 (0.0-0.2) X10*3/uL Abs Immat Gran (auto) 0.02 (0.00-0.03) X10*3/uL Absolute Neuts (auto) 4.6 (2.0-8.3) x10*3/uL Absolute Nucleated RBC 0.000 (0.0-0.012) X10*3/uL Nucleated RBC % (auto) 0.0 (0.0-0.2) /100WBC PT 11.1 (10.0-13.1) SEC INR 1.0 (0.9-1.1) Sodium 142 (135-145) mmol/L Potassium 3.9 (3.3-5.1) mmol/L Chloride 102 (96-108) mmol/L Carbon Dioxide 26 (22-29) mmol/L Anion Gap 18 (12-20) BUN 17 H (9-16) mg/dL Creatinine 0.80 (0.5-1.4) mg/dL Estim Creat Clear Calc 52.9 Estimated GFR > 60 Random Glucose 96 (60-115) mg/dL Calcium 10.7 H (8.4-10.2) mg/dL Magnesium 2.1 (1.6-2.6) mg/dL Total Bilirubin 0.4 (0.0-1.0) mg/dL AST 17 (5-31) U/L ALT 21 (0-31) U/L Alkaline Phosphatase 73 (39-117) U/L Troponin I High Sens (<3.5-17.0) ng/L Total Protein 7.6 (6.5-8.0) g/dL Albumin 4.6 (3.5-5.0) g/dL Hold Green Top 07/27/22 07/27/22 Range/Units 15:21 15:21 WBC (4.8-10.8) X10*3/uL RBC (4.20-5.50) X10*6/uL Hgb (12.0-16.0) g/dl Hct (37.0-47.0) % MCV (80.0-98.0) fL MCH (27.0-33.0) pg MCHC (31.0-35.0) g/dl RDW (11.0-16.0) % Plt Count (160-400) X10*3/uL MPV (9.4-12.3) fL Immature Gran % (Auto) (0.0-0.4) % Neut % (Auto) (45-73) % Lymph % (Auto) (20-40) % Preston % (Auto) (2-11) % Eos % (Auto) (0-4) % Baso % (Auto) (0-2) % Lymph # (Auto) (1.2-4.9) X10*3/uL Preston # (Auto) (0.1-1.2) X10*3/uL Eos # (Auto) (0.0-0.4) X10*3/uL Baso # (Auto) (0.0-0.2) X10*3/uL Abs Immat Gran (auto) (0.00-0.03) X10*3/uL Absolute Neuts (auto) (2.0-8.3) x10*3/uL Absolute Nucleated RBC (0.0-0.012) X10*3/uL Nucleated RBC % (auto) (0.0-0.2) /100WBC PT (10.0-13.1) SEC INR (0.9-1.1) Sodium (135-145) mmol/L Potassium (3.3-5.1) mmol/L Chloride (96-108) mmol/L Carbon Dioxide (22-29) mmol/L Anion Gap (12-20) BUN (9-16) mg/dL Creatinine (0.5-1.4) mg/dL Estim Creat Clear Calc Estimated GFR Random Glucose (60-115) mg/dL Calcium (8.4-10.2) mg/dL Magnesium (1.6-2.6) mg/dL Total Bilirubin (0.0-1.0) mg/dL AST (5-31) U/L ALT (0-31) U/L Alkaline Phosphatase (39-117) U/L Troponin I High Sens 10.7 (<3.5-17.0) ng/L Total Protein (6.5-8.0) g/dL Albumin (3.5-5.0) g/dL Hold Green Top See Note ECG Data Attestation: I personally reviewed and interpreted this ECG as follows: Prior ECG tracings: available for review Interpretation: EKG normal sinus rhythm at a rate of 76. Incomplete right bundle branch block. QTC 461. No STEMI. No significant change when compared to prior Discharge Plan Discharge Prescriptions: No Action hydrochlorothiazide 25 mg tablet 25 mg PO DAILY Qty: 90 1RF enalapril maleate 2.5 mg tablet 2.5 mg PO DAILY Qty: 90 1RF Dexilant 60 mg capsule,biphase delayed releas 60 mg PO DAILY 90 Days Qty: 90 3RF cholecalciferol (vitamin D3) 25 mcg (1,000 unit) capsule 25 mcg PO DAILY nabumetone 500 mg tablet 500 mg PO BID PRN (Reason: pain) 30 Days Qty: 60 5RF peg 3350-electrolytes [Golytely] 236-22.74-6.74 -5.86 gram recon soln 240 ml PO Q10M 1 Days Qty: 4000 0RF Rx Instructions: until fecal effluent is clear; do not exceed a total volume of 2,000 mL
== END 2022-07-27 19:02 | disposition home or self-care (01) ==
PROVIDERS: Physician Assistant; Physician Assistant Medical; Emergency Provider Emergency Medicine; PCP Internal Medicine
DX: M19.012 Primary osteoarthritis, left shoulder (principal); M79.602 Pain in left arm; I10 Essential (primary) hypertension; Z79.899 Other long term (current) drug therapy
CPT/HCPCS: 36415; 71046; 72072; 73030; 73060; 80053; 83735; 84484; 85025; 85610; 93005; 99283

== ENCOUNTER 2022-09-02 11:20 | Outpatient (REF) | payer OTHER, SELFPAY ==
--- NOTE | ~2022-09-02 | XR_ITS ---
EXAMINATION: XR AP BILATERAL KNEES STANDING XR LEFT KNEE XR RIGHT KNEE CLINICAL INFORMATION: Pain in bilateral knees. COMPARISON: Bilateral knees 12/07/2018. TECHNIQUE: AP bilateral knees standing, one view. Two views of each knee. FINDINGS: AP BILATERAL KNEE: There is mild reduction in the medial and lateral compartment joint space without bony erosive changes. There is mild periarticular spurring in the medial compartments. There are no loose bodies or joint effusions. LEFT KNEE: There is mild loss of patellofemoral compartment joint space with periarticular spurring. There is mild suprapatellar joint effusion. No loose bodies or bony erosive changes are seen. RIGHT KNEE: There is mild loss of patellofemoral component joint space with periarticular spurring. There are no bony erosive changes. There are no loose bodies. Mild suprapatellar joint effusion is seen. No visible acute fracture or dislocation. XR/XR knee standing BI IMPRESSION: Tricompartmental degenerative arthritic changes slightly worse in the medial compartments. There is mild suprapatellar joint effusion. No acute fracture or loose bodies seen.
== END 2022-09-02 11:21 | disposition home or self-care (01) ==
LOC: HO.HOSX 11:20
PROVIDERS: Visit Provider Orthopaedic Surgery
DX: M17.0 Bilateral primary osteoarthritis of knee (principal)
CPT/HCPCS: 20610; 73560; 73565; 99212; J1100

== ENCOUNTER 2022-11-21 15:18 | Outpatient (REF) | payer OTHER, SELFPAY ==
--- NOTE | ~2022-11-21 | MM_ITS ---
EXAMINATION: MM SCREENING DIGITAL BREAST TOMOSYNTHESIS, BILATERAL CLINICAL INFORMATION: Screening. Asymptomatic. The lifetime risk of breast cancer based on the Tyrer-Cuzick Model is 5%. COMPARISON: Mammography: 10/22/2021 (new baseline) TECHNIQUE: Digital breast tomosynthesis is performed in both the craniocaudal and mediolateral oblique views along with computer-aided detection (CAD). Synthesized 2D images are generated from the tomosynthesis. FINDINGS: There are scattered areas of fibroglandular density (ACR BI-RADS breast composition Category b). There are no significant masses, abnormal calcifications, or other abnormalities. No architectural abnormality or developing density or significant change from prior studies. Incidental intramammary node again seen posterior upper outer left breast. There are bilateral dermal lesions again seen overlying the breasts. MM/MM tomosynthesis screening BI IMPRESSION: No mammographic evidence of malignancy. ASSESSMENT: BI-RADS 2: Benign RECOMMENDATION: Routine annual mammography screening. This patient's information was entered into a reminder system with a target due date for their next mammogram.
== END 2022-11-21 15:19 | disposition home or self-care (01) ==
LOC: HO.MAMMO 15:18
PROVIDERS: PCP Internal Medicine; Visit Provider Internal Medicine
DX: Z12.31 Encounter for screening mammogram for malignant neoplasm of breast (principal)
CPT/HCPCS: 77063; 77067

== ENCOUNTER 2022-12-10 09:29 | Day surgery (SDC) | payer OTHER, SELFPAY ==
[2022-12-05 10:50] VITALS: BMI 25.9
--- NOTE | 2022-12-09 13:32 | HO.ANESPROP2 ---
HPI - Anesthesia Eval Consult details Narrative: 72yo F for Colonoscopy PMF Active Problems Active Problems: All Active Problems (Updated 10/29/22 @ 16:08 by Denys Gonsalves MD) Osteoporosis screening (Acute) Bilateral primary osteoarthritis of knee (Acute) Tubular adenoma of colon (Acute) Pre-op exam (Acute) Vitamin D deficiency (Acute) Annual physical exam (Acute) Colon cancer screening (Acute) Overweight (BMI 25.0-29.9) (Acute) Degenerative joint disease of right shoulder (Acute) GERD without esophagitis (Acute) Benign essential hypertension (Acute) Past Medical History Medical History Benign essential hypertension Degenerative joint disease of right shoulder GERD without esophagitis Overweight (BMI 25.0-29.9) Vitamin D deficiency Family History Family History Father CVD (cardiovascular disease) Mother No problems noted. Daughter In good health Sister In good health Sister In good health Sister In good health Brother In good health Surgical History Surgical History H/O local excision of skin lesion History of cholecystectomy History of colonoscopy Social History Social History Housing: Apartment Alcohol intake: never Patient Tobacco Use Status: Never used Tobacco e-Cigarette/Vaping Use: Never Used Second Hand Smoke Exposure: Yes service: No Current occupational status: retired Cognitive needs: No Hearing needs: No Vision needs: No Meds Allergies Allergy/AdvReac Type Severity Reaction Status Date / Time No Known Allergies Allergy Verified 10/29/22 15:38 [No Known Allergies*] Home Medications Medication Instructions Recorded Confirmed Last Taken Type cholecalciferol (vitamin D3) 25 25 mcg PO DAILY 11/14/20 10/29/22 Unknown History mcg (1,000 unit) capsule Exam Exam Date and Time: December 09, 2022 1332 Height,Weight and Vital Signs: Height 5 ft 1 in Weight 62.256 kg Pertinent Lab Results Pertinent Lab Results: Laboratory Tests 07/27/22 07/27/22 15:21 15:21 WBC 7.3 Hgb 14.5 Hct 45.7 Plt Count 229 Sodium 142 Potassium 3.9 Chloride 102 Carbon Dioxide 26 BUN 17 H Creatinine 0.80 Narrative Narrative: EKG 07/2022 Vent. Rate : 076 BPM ? ? Atrial Rate : 076 BPM ?? P-R Int : 142 ms? QRS Dur : 092 ms ? ? QT Int : 410 ms ? ? ? P-R-T Axes : 049 -26 028 degrees ?? QTc Int : 461 ms ? Normal sinus rhythm Incomplete right bundle branch block Minimal voltage criteria for LVH, may be normal variant ( R in aVL ) Abnormal ECG When compared with ECG of 19-MAY-2019 15:47, No significant change was found Assessment and Plan Assessment Anesthesia Assessment: Chart Reviewed
[2022-12-10 09:52] VITALS: BMI 25.9
[2022-12-10 10:00] VITALS: BP 159/70; PULSE 81; RESP 16; TEMP 36.9; O2SAT 98
[2022-12-10] MEDS: Lactated Ringers 1,000 ML 100 ML IVCONT (10:18)
--- NOTE | 2022-12-10 10:25 | P.HPSUR_ITS ---
Pre-Procedural Eval Section A Date of Service: 12/10/22 Section B Chief Complaint: screening Relevant Family History (Specify if Yes): No Relevant Social History: None Present Medications: see Short Stay Collaborative assessment Medical History: Significant History (Benign essential hypertension Degenerative joint disease of right shoulder GERD without esophagitis Overweight (BMI 25.0- 29.9) Vitamin D deficiency) History of Previous Operations: Relevant previous surgery/procedure and date(s) (H/O local excision of skin lesion History of cholecystectomy History of colonoscopy) Allergies: Allergies Allergy/AdvReac Type Severity Reaction Status Date / Time No Known Allergies Allergy Verified 10/29/22 15:38 [No Known Allergies*] Review of Systems Sugical H&P ROS: Negative: Constitution, Cardiovascular, Respiratory, Neurological, Psychiatric, Hem-Onc, Allergic/Immunologic, Gastrointestinal, Genitourinary, Musculoskeletal, Integumentary, Endocrine and Eyes/Ears/Nose/Throat Exam Surgical H&P Exam: Normal: HEENT, Normal: Heart, Normal: Lungs, Normal: Extremities, Normal: Abdomen, Normal: Skin and Normal: Neurological Plan Diagnosis/Plan: Unchanged I have reviewed the history and physical and performed a pertinent physical examination on my patient. No changes have occurred unless specified. Time Spent With Patient Time: Total time managing care of this patient today ____ minutes.
--- NOTE | 2022-12-10 10:27 | P.OP_ITS ---
Operative Note Operative Note Date of Service: 12/10/22 Narrative: Operative Information Procedure Description: Colonoscopy Indication: screening Anesthesia: MAC COLONOSCOPY Instrument: Olympus variable stiffness pediatric scope 190L Colonoscopy Monitoring: Vital signs and clinical assessment, continuous EKG monitoring, Pulse oximetry, Carbon Dioxide monitoring and blood pressure monitoring were done throughout the procedure. Colon withdrawal time was 12 minutes. Procedure: The patient was placed in the left lateral decubitis position and pre-procedure medications were administered. After a digital rectal examination of the ano-rectum, the video colonoscope was inserted into the rectum and advanced through the colon to the cecum/TI. The colonoscope was slowly withdrawn in a retrograde panoramic fashion and the colon mucosa was carefully examined including a retroflexed view of the rectum. Findings and interventions are described below. Procedure Difficulty: easy Findings: Terminal Ileum-normal Cecum:normal Ascending Colon: x1 sessile polyp 4-6 mm removed with cold forceps, x2 sessile polyps 7-9 mm removed with cold snare, few diverticula seen Transverse Colon -normal Descending Colon:normal Sigmoid Colon: moderate diverticulosis Rectum: Retroflexion with small internal hemorrhoids, grade I Anorectum - normal Colon preparation: [place] Bowel Preparation Scale Right colon; 2 Transverse colon: 2 Left colon; 2 (0 = Unprepared colon segment with mucosa not seen due to solid stool that cannot be cleared. 1 = Portion of mucosa of the colon segment seen, but other areas of the colon segment not well seen due to staining, residual stool and/or opaque liquid. 2 = Minor amount of residual staining, small fragments of stool and/or opaque liquid, but mucosa of colon segment seen well. 3 = Entire mucosa of colon segment seen well with no residual staining, small fragments of stool or opaque liquid) Impression and Post Procedure Diagnosis: polyps internal hemorrhoids diverticular disease Plan: High fiber diet leaflet Avoid straining at stool, epsom salts and sitz bath, anusol supps or cream Repeat Colonoscopy in 3 years or earlier if clinically indicated Above findings were reviewed with the patient and relevant handouts were provided if indicated.
--- NOTE | 2022-12-10 10:47 | P.CONAN_ITS ---
[facility] Active Problems Active Problems: All Active Problems (Updated 10/29/22 @ 16:08 by Denys Gonsalves MD) Osteoporosis screening (Acute) Bilateral primary osteoarthritis of knee (Acute) Tubular adenoma of colon (Acute) Pre-op exam (Acute) Vitamin D deficiency (Acute) Annual physical exam (Acute) Colon cancer screening (Acute) Overweight (BMI 25.0-29.9) (Acute) Degenerative joint disease of right shoulder (Acute) GERD without esophagitis (Acute) Benign essential hypertension (Acute) Past Medical History Medical History Benign essential hypertension Degenerative joint disease of right shoulder GERD without esophagitis Overweight (BMI 25.0-29.9) Vitamin D deficiency Family History Family History Father CVD (cardiovascular disease) Mother No problems noted. Daughter In good health Sister In good health Sister In good health Sister In good health Brother In good health Surgical History Surgical History H/O local excision of skin lesion History of cholecystectomy History of colonoscopy Social History Social History Housing: Apartment Alcohol intake: never Patient Tobacco Use Status: Never used Tobacco e-Cigarette/Vaping Use: Never Used Second Hand Smoke Exposure: Yes Use of substances other than those prescribed or required for medical reasons: No Are you DNR?: No Advance Directives: No Advance Directives Information Provided: Yes Recently lost weight without trying: No Nutrition Risks: No Nutritional Risk service: No Current occupational status: retired Cognitive needs: No Hearing needs: No Vision needs: No Meds Allergies Allergy/AdvReac Type Severity Reaction Status Date / Time No Known Allergies Allergy Verified 10/29/22 15:38 [No Known Allergies*] Active Medications: Current Medications Lactated Ringer's (Lr) 1,000 mls @ 100 mls/hr IVCONT .Q10H LEIGHANN Last Admin: 12/10/22 10:18 Dose: 100 mls/hr Home Medications Medication Instructions Recorded Confirmed Last Taken Type cholecalciferol (vitamin D3) 25 25 mcg PO DAILY 11/14/20 10/29/22 Unknown History mcg (1,000 unit) capsule Exam Exam Date and Time: December 10, 2022 1047 Height,Weight and Vital Signs: Height 5 ft 1 in Weight 62.142 kg Last Vital Signs Temp 98.5 F 12/10/22 10:00 Pulse 81 12/10/22 10:00 Resp 16 12/10/22 10:00 BP 159/70 H 12/10/22 10:00 Pulse Ox 98 12/10/22 10:00 O2 Del Method Room Air 12/10/22 10:00 Airway Mallampati Class: I TM Dist: >3cm Neck ROM: Full Heart: RRR Lungs: CTA Assessment and Plan Final Anesthetic Review ASA Class: II Final Preanesthetic Review: Meds/Rohitgs Chart Reviewed and Consent Obtained/Reviewed Patient Risk: Low Procedure Risk: Low Anesthetic Plan Anesthetic Plan: MAC: Disposition: Standard PACU
[2022-12-10 11:10] VITALS: BP 94/47; PULSE 65; RESP 16; TEMP 36.1; O2SAT 98
[2022-12-10 11:25] VITALS: BP 104/63; PULSE 82; RESP 16; O2SAT 100
[2022-12-10 11:43] VITALS: BP 127/62; PULSE 63; RESP 18; TEMP 36.1; O2SAT 98
== END 2022-12-10 12:49 | disposition home or self-care (01) ==
PROVIDERS: PCP Internal Medicine; Visit Provider Internal Medicine Gastroenterology
PROC: 0DJD8ZZ Inspection of Lower Intestinal Tract, Via Natural or Artificial Opening Endoscopic (ICD-10-PCS; CPT 45378; principal; 2022-12-10 11:00)
DX: Z12.11 Encounter for screening for malignant neoplasm of colon (principal); Z86.010 Personal history of colon polyps; D12.2 Benign neoplasm of ascending colon; K57.30 Diverticulosis of large intestine without perforation or abscess without bleeding; K64.0 First degree hemorrhoids; K21.9 Gastro-esophageal reflux disease without esophagitis; I10 Essential (primary) hypertension; M19.011 Primary osteoarthritis, right shoulder; E66.3 Overweight; Z68.26 Body mass index [BMI] 26.0-26.9, adult; E55.9 Vitamin D deficiency, unspecified; Z90.49 Acquired absence of other specified parts of digestive tract
CPT/HCPCS: 45385; 45380; 88305

== ENCOUNTER 2023-04-24 08:12 | Outpatient (REF) | payer OTHER, SELFPAY ==
[2023-04-24 08:42] LABS: MANUAL DIFF FLAG NO
[2023-04-24 09:02] LABS: Basophils Percent Auto 0.7 % (0-2); Eosinophils Absolute Auto 0.1 X10*3/uL (0.0-0.4); Eosinophils Percent Auto 2.4 % (0-4); Hematocrit 42.9 % (37.0-47.0); Imm Gran Abs Auto 0.02 X10*3/uL (0.00-0.03); Imm Gran Pct Auto 0.3 % (0.0-0.4); Lymphocytes Percent Auto 33.5 % (20-40); Mean Corpuscular HGB Conc 32.6 g/dl (31.0-35.0); Mean Corpuscular Hemoglobin 30.7 pg (27.0-33.0); Mean Corpuscular Volume 94.1 fL (80.0-98.0); Mean Platelet Volume 12.8 fL (9.4-12.3); Monocytes Absolute Auto 0.5 X10*3/uL (0.1-1.2); Neutrophils Absolute Auto 3.3 x10*3/uL (2.0-8.3); Neutrophils Percent Auto 55.1 % (45-73); Platelet Count 162 X10*3/uL (160-400); Red Blood Count 4.56 X10*6/uL (4.20-5.50); Red Cell Distribution Width 12.8 % (11.0-16.0); White Blood Count 5.9 X10*3/uL (4.8-10.8)
[2023-04-24 09:51] LABS: Appearance Urine Clear; Color Urine Yellow; Glucose Urine UA Negative (Negative); Leukocyte Esterase Urine Moderate (2+) (Negative); Nitrite Urine Negative (Negative); UMIC TRIGGER UACC YES; Urine Blood Negative (Negative); Urine Ketones Negative (Negative); Urine Protein Negative (Neg-Trace)
[2023-04-24 09:54] LABS: Bacteria Urine 1+ (None Seen); Hyaline Casts Urine 0-2 /LPF (0-2); RBC Urine 0-2 /HPF (0-2); UACC Culture Trigger YES
[2023-04-24 09:54] LABS: Alanine Aminotransferase 9 U/L (0-31); Albumin Level 4.1 g/dL (3.5-5.0); Alkaline Phosphatase 68 U/L (39-117); Anion Gap 11 (12-20); Aspartate Amino Transferase 13 U/L (5-31); Bilirubin Total 0.5 mg/dL (0.0-1.0); Blood Urea Nitrogen 15 mg/dL (9-16); Calcium 10.7 mg/dL (8.4-10.2); Carbon Dioxide 29 mmol/L (22-29); Chloride 108 mmol/L (96-108); Cholesterol 175 mg/dL; Estimated Glomerular Filt Rate > 60; Glucose Fasting 100 mg/dL (60-99); HDL Cholesterol 60 mg/dL; LDL Cholesterol Calculated 104 mg/dl; Potassium 4.5 mmol/L (3.3-5.1); Sodium 143 mmol/L (135-145); Total Protein 6.9 g/dL (6.5-8.0); Triglycerides 56 mg/dL
[2023-04-24 10:12] LABS: TSH reflex Free T4 1.25 uIU/mL (0.32-4.0); Vitamin D 25-OH Total 50.6 ng/mL (>30)
== END 2023-04-24 08:13 | disposition home or self-care (01) ==
LOC: HO.LAB 08:12
PROVIDERS: PCP Internal Medicine; Visit Provider Internal Medicine
DX: I10 Essential (primary) hypertension (principal); E55.9 Vitamin D deficiency, unspecified; E78.00 Pure hypercholesterolemia, unspecified; R30.0 Dysuria
CPT/HCPCS: 36415; 80053; 80061; 81001; 82306; 84443; 85025; 87086

== ENCOUNTER 2023-04-28 15:15 | Outpatient (AMB) | payer OTHER, SELFPAY ==
[2023-04-28 15:20] VITALS: BP 110/80; PULSE 67; BMI 25.2
--- NOTE | 2023-04-28 15:20 | MHC.PC.OV ---
Vital Signs 04/28/23 15:20 Height 5 ft 1 in Weight 133 lb 8 oz BMI 25.2 BP 110/80 Blood Pressure Location Lt brachial Position Sitting Pulse 67 Pulse Source Pulse Oximeter Oxygen Delivery Method Room Air Intake Visit Reasons: HTN, dyslipidemia, GERD Internal Grinder Set Up Operator Required: No Accompanied by: Self / Same As Patient Allergies No Known Allergies [No Known Allergies*] Allergy (Verified 04/28/23 16:01) Medication List - Last Reconciled 04/28/23 by Denys Gonsalves MD acetaminophen (Tylenol Extra Strength) 500 mg PO Q6H PRN cholecalciferol (vitamin D3) 25 mcg PO DAILY clotrimazole 1% (Lotrimin AF (clotrimazole)) 1 appl topical BID 2 weeks dexlansoprazole (Dexilant) 60 mg PO DAILY 90 days enalapril maleate 2.5 mg PO DAILY hydrochlorothiazide 25 mg PO DAILY naproxen 500 mg PO BID PRN 10 days peg 3350-electrolytes 236-22.74-6.74 -5.86 gram (Golytely) 240 mL PO Q10M 1 day Tobacco use date assessed: 04/28/23 Fall risk assessment: No Falls in past year Last assessed Fall Risk: 04/28/23 Dental Screening Dental Screen Date: 04/28/23 Did you have a dental visit in the last 12 months?: Yes Did you have a dental problem in the last 6 months where you did not have access to dental care?: No Was dental information given to patient?: Patient has dentist HPI HTN, dyslipidemia, GERD HPI Details Patient comes in today for her follow up visit States that she has been experiencing increased pain over her left shoulder for the past 3 days Denies any recent injury or trauma to her shoulder but states that 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 Notes also that her [employer] WORK[employer] hours got cut recently and she has to do more work now at home on her own Also relates (+) frequent nasal drainage and at times, nasal congestion lately States that she feels okay otherwise Patient denies any fever or sore throat She denies any headaches or dizziness Denies any chest pains, no shortness of breath No nausea/vomiting, no abdominal pain No change in bowel habits noted Had her follow up labs done a few days ago - to discuss her results [facility] Medical History (Updated 04/29/23 @ 06:10 by Denys Gonsalves MD) Allergic rhinitis Benign essential hypertension Degenerative joint disease of right shoulder GERD without esophagitis Overweight (BMI 25.0-29.9) Vitamin D deficiency Surgical History (Updated 04/29/23 @ 06:15 by Denys Gonsalves MD) H/O local excision of skin lesion History of cholecystectomy History of colonoscopy Family History Father CVD (cardiovascular disease) Mother No problems noted. Daughter In good health Sister In good health Sister In good health Sister In good health Brother In good health Social History Housing: Apartment Alcohol intake: never Patient Tobacco Use Status: Never used Tobacco e-Cigarette/Vaping Use: Never Used Second Hand Smoke Exposure: Yes service: No Current occupational status: retired Cognitive needs: No Hearing needs: No Vision needs: No Questionnaire PHQ-9 Over the last 2 weeks, how often have you been bothered by any of the following problems? 1. Little interest or pleasure in doing things: not at all 2. Feeling down, depressed, or hopeless: not at all 3. Trouble falling or staying asleep, or sleeping too much: not at all 4. Feeling tired or having little energy: not at all 5. Poor appetite or overeating: not at all 6. Feeling bad about yourself - or that you are a failure or have let yourself or your family down: not at all 7. Trouble concentrating on things, such as reading the newspaper or watching television: not at all 8. Moving or speaking so slowly that other people could have noticed. Or the opposite - being so fidgety or restless that you have been moving around a lot more than usual: not at all 9. Thoughts that you would be better off or of hurting yourself in some way: not at all Total score: 0 Depression Screening Interpretation: Negative [id number] - PHQ-9 Billing: Yes Source: Developed by Drs. Charli Carlson, Nupur Persaud, Darell Lee and colleagues, with an educational jonathon from [employer]. Thrive Questionnaire Date Thrive assessed: 04/28/23 I am a: Patient What is your living situation today?: I have a steady place to live Within the past 12 months, did the food you bought not last and you didn't have the money to get more?: Never true Within the past 12 months, did you worry whether your food would run out before you got money to buy more?: Never true Do you have trouble paying for medicines?: No Do you have trouble getting transportation to medical appointments?: No Do you have trouble paying your heating and electricity bill?: No Do you have trouble taking care of your child, family member or friend?: No Do you have trouble with day-to-day activities such as bathing, preparing meals, shopping, managing finances, etc.?: No Are you currently unemployed and looking for a job?: No Are you interested in more education?: No Please select the resources that you would like help with: None Currently or been in a relationship where the following occur: no concerns reported AUDIT C Alcohol Use Questionnaire (AUDIT-C) 1. How often do you have a drink containing alcohol?: Never 3. How often do you have six or more drinks on one occasion?: Never Total Score: 0 Score Reviewed/Action Taken: Yes MARY-7 AMB Questionnaire MARY-7 Date MARY - 7 assessed: 04/28/23 Feeling nervous, anxious, or on edge: 0 = Not at all Not being able to stop or control worryin = Not at all Worrying too much about different things: 0 = Not at all Trouble relaxin = Not at all Being so restless that it is hard to sit still: 0 = Not at all Becoming easily annoyed or irritable: 0 = Not at all Feeling afraid as if something awful might happen: 0 = Not at all Total MARY-7 score (0-4 normal; 5-9 mild; 10-14 moderate; 15-21 severe): 0 Source: Developed by Drs. Charli Carlson, Nupur Persaud, Darell Lee and colleagues, with an educational jonathon from [employer]. Review of Systems Const Denies chills, Denies fatigue, Denies fever(s) and Denies headache(s) ENT Denies dysphagia, Denies dizziness, Denies otalgia, Denies headache(s), Reports nasal congestion (occasionally), Reports nasal discharge (frequent lately), Denies neck pain, Denies odynophagia and Denies sore throat Card Denies chest pain, Denies rapid heart rate, Denies irregular heart rhythm, Denies palpitations and Denies dyspnea Resp Denies chest congestion, Denies cough and Denies dyspnea GI Denies abdominal pain, Denies constipation, Denies dysphagia, Denies heartburn, Denies diarrhea, Denies nausea, Denies odynophagia and Denies vomiting Denies urinary frequency, Denies dysuria and Denies urinary urgency Musc Denies back pain, Reports arthralgias (increased over the left shoulder lately) and Denies neck pain Skin/Breast Denies rash Neuro Denies dizziness, Denies headache(s) and Denies paresthesias Endo Denies fatigue and Denies palpitations Physical exam (Primary Care) Vital Signs: Last Vital Signs Pulse 67 04/28/23 15:20 BP 110/80 04/28/23 15:20 Oxygen Delivery Method Room Air 04/28/23 15:20 BMI result Body Mass Index 25.2 Tobacco/Smoking Status: Tobacco use Status Tobacco use date assessed 04/28/23 04/28/23 15:27 Patient Tobacco Use Status Never used Tobacco 04/28/23 15:27 e-Cigarette/Vaping Use Never Used 04/28/23 15:27 PHQ-9: PHQ-9 Score PHQ-9: Total score 0 04/28/23 16:01 Depression Screening Interpretation: Negative Thrive Assessment: Date of Thrive Assessment Date Thrive assessed 04/28/23 04/28/23 15:27 Currently or been in a relationship where the following occur: no concerns reported Const General: no acute distress and alert HENMT Ears: TM's normal bilaterally and EAC's normal Throat: Yes posterior oropharynx normal and Yes tonsils normal (no TP congestion) Neck Neck: Yes no lymphadenopathy and Yes supple Thyroid: Thyroid normal Resp Auscultation: clear to auscultation bilaterally, no rales and no wheezes Cardio Rate: regular rate Rhythm: regular rhythm Heart sounds: no murmurs GI Palpation (GI): Soft to palpation and nontender Auscultation: normal bowel sounds General: Yes no CVA tenderness Back/Spine/Pelvis Back: no CVA tenderness Thoracic/Lumbar Spine: thoracic and lumbar spine normal to inspection Skin Rashes: no rashes Extrem General: Yes no clubbing, cyanosis or edema Left upper extremity: shoulder/upper arm Details: tenderness Location: of the A-C joint and normal ROM Results Reviewed Results Reviewed: Laboratory Tests 04/24/23 04/24/23 04/24/23 08:40 08:41 08:41 WBC 5.9 Hgb 14.0 Hct 42.9 Plt Count 162 D Sodium 143 Potassium 4.5 Creatinine 0.80 Estimated GFR > 60 Fasting Glucose 100 H Calcium 10.7 H AST 13 ALT 9 Triglycerides 56 Cholesterol 175 LDL Cholesterol, Calc 104 HDL Cholesterol 60 25-OH Vitamin D Total 50.6 TSH 1.25 Ur Specific [place] 1.020 Urine Protein Negative Urine Glucose (UA) Negative Urine Blood Negative Assessment and Plan Assessment & Plan (1) Benign essential hypertension: Code(s): I10 - Essential (primary) hypertension Plan: Reinforced low sodium diet - goal is systolic BP of at least 130 to 140 mm or less Continue Enalapril 2.5 mg QD and HCTZ 25 mg QD (2) Degenerative joint disease of right shoulder: Comment: MRI of the shoulder done on 05/12/2019 showed (+) complex tear of the supraspinatus tendon, degenerative tear of the glenoid labrum and moderate glenohumeral and acromioclavicular osteoarthritis Code(s): M19.011 - Primary osteoarthritis, right shoulder Qualifiers: Osteoarthritis type: unspecified Qualified Code(s): M19.011 - Primary osteoarthritis, right shoulder Plan: Continue Nabumetone 500 mg BID PRN for pain States that her shoulder pain has improved a lot with cortisone injections from orthopedics She will continue to follow up with orthopedics as scheduled and remains adamant about not wanting surgery done on her shoulder (3) Left shoulder pain: Code(s): M25.512 - Pain in left shoulder Qualifiers: Chronicity: unspecified Qualified Code(s): M25.512 - Pain in left shoulder Plan: Patient had x-rays of the left shoulder done back in July 2022 that revealed degenerative osteoarthritis of the glenohumeral and acromioclavicular joints Will refer her to Orthopedics for further evaluation and management of her recently increasing left shoulder pain (4) Hypercalcemia: Code(s): E83.52 - Hypercalcemia Plan: Patient has been noted consistently to have mild hypercalcemia on her recent labs over the past year Will recheck this in 6 months for follow up; will also obtain a PTH level for further evaluation (5) GERD without esophagitis: Code(s): K21.9 - Gastro-esophageal reflux disease without esophagitis Plan: Dietary restrictions reinforced Continue Dexilant 60 mg QD (6) Allergic rhinitis: Code(s): J30.9 - Allergic rhinitis, unspecified Qualifiers: Allergic rhinitis trigger: unspecified Allergic rhinitis seasonality: unspecified Qualified Code(s): J30.9 - Allergic rhinitis, unspecified Plan: Will start patient on Loratadine 10 mg QD PRN (7) Vitamin D deficiency: Code(s): E55.9 - Vitamin D deficiency, unspecified Plan: Corrected - continue Vitamin D3 1000 units QD (8) Overweight (BMI 25.0-29.9): Code(s): E66.3 - Overweight Plan: Reinforced diet/exercise as tolerated/lose weight Plan Follow up in 6 months Orders: Orders Comprehensive [place]. Panel Fast 6 Months E78.00 - Pure hypercholesterolemia, unspecified Lipid Panel 6 Months E78.00 - Pure hypercholesterolemia, unspecified Complete Blood Count Auto Diff 6 Months I10 - Essential (primary) hypertension PTHI 6 Months E83.52 - Hypercalcemia TSH reflex Free T4 6 Months E78.00 - Pure hypercholesterolemia, unspecified Vitamin D 25-OH Total 6 Months E55.9 - Vitamin D deficiency, unspecified Referrals Orthopedics Referral G89.29 - Other chronic pain, M25.512 - Pain in left shoulder Medications: New loratadine 10 mg PO DAILY 90 days PRN 90 tabs 3RF allergy symptoms J30.9 - Allergic rhinitis, unspecified Coding Level of Care Code Est Pt Level 4 (98587) Diagnoses Benign essential hypertension I10 Degenerative joint disease of right shoulder M19.011 Osteoarthritis type: unspecified Left shoulder pain M25.512 Chronicity: unspecified Hypercalcemia E83.52 GERD without esophagitis K21.9 Allergic rhinitis J30.9 Allergic rhinitis trigger: unspecified Allergic rhinitis seasonality: unspecified Vitamin D deficiency E55.9 Overweight (BMI 25.0-29.9) E66.3
== END 2023-04-28 16:08 | disposition home or self-care (01) ==
PROVIDERS: PCP Internal Medicine; Visit Provider Internal Medicine
DX: I10 Essential (primary) hypertension (principal); E83.52 Hypercalcemia; K21.9 Gastro-esophageal reflux disease without esophagitis; M19.011 Primary osteoarthritis, right shoulder; M25.512 Pain in left shoulder; J30.9 Allergic rhinitis, unspecified; E66.3 Overweight
CPT/HCPCS: 99214

== ENCOUNTER 2023-10-24 10:40 | Outpatient (REF) | payer OTHER, SELFPAY ==
[2023-10-24 10:56] LABS: MANUAL DIFF FLAG NO
[2023-10-24 11:08] LABS: Basophils Percent Auto 0.8 % (0-2); Eosinophils Absolute Auto 0.1 X10*3/uL (0.0-0.4); Hematocrit 43.5 % (37.0-47.0); Imm Gran Abs Auto 0.02 X10*3/uL (0.00-0.03); Imm Gran Pct Auto 0.5 % (0.0-0.4); Lymphocytes Absolute Auto 1.2 X10*3/uL (1.2-4.9); Lymphocytes Percent Auto 29.1 % (20-40); Mean Corpuscular HGB Conc 32.2 g/dl (31.0-35.0); Mean Corpuscular Hemoglobin 30.2 pg (27.0-33.0); Mean Corpuscular Volume 93.8 fL (80.0-98.0); Mean Platelet Volume 11.6 fL (9.4-12.3); Monocytes Absolute Auto 0.4 X10*3/uL (0.1-1.2); Monocytes Percent Auto 10.3 % (2-11); Neutrophils Absolute Auto 2.3 x10*3/uL (2.0-8.3); Neutrophils Percent Auto 56.3 % (45-73); Platelet Count 177 X10*3/uL (160-400); Red Blood Count 4.64 X10*6/uL (4.20-5.50); Red Cell Distribution Width 12.4 % (11.0-16.0)
[2023-10-24 11:45] LABS: Parathyroid Hormone Intact 91.4 pg/mL (8.7-77.1)
[2023-10-24 11:51] LABS: Alanine Aminotransferase 16 U/L (0-31); Albumin Level 4.2 g/dL (3.5-5.0); Alkaline Phosphatase 70 U/L (39-117); Anion Gap 12 (12-20); Aspartate Amino Transferase 18 U/L (5-31); Bilirubin Total 0.4 mg/dL (0.0-1.0); Blood Urea Nitrogen 17 mg/dL (9-16); Calcium 10.4 mg/dL (8.4-10.2); Carbon Dioxide 29 mmol/L (22-29); Chloride 104 mmol/L (96-108); Cholesterol 180 mg/dL (<200); Estimated Glomerular Filt Rate > 60; Glucose Fasting 103 mg/dL (60-99); HDL Cholesterol 53 mg/dL (>40); LDL Cholesterol Calculated 112 mg/dL (<100); Sodium 141 mmol/L (135-145); Total Protein 7.3 g/dL (6.5-8.0); Triglycerides 78 mg/dL (<150)
[2023-10-24 11:59] LABS: TSH reflex Free T4 0.71 uIU/mL (0.32-4.0); Vitamin D 25-OH Total 54.6 ng/mL (>30)
== END 2023-10-24 10:41 | disposition home or self-care (01) ==
LOC: HO.LAB 10:40
PROVIDERS: PCP Internal Medicine; Visit Provider Internal Medicine
DX: E78.00 Pure hypercholesterolemia, unspecified (principal); E83.52 Hypercalcemia; E55.9 Vitamin D deficiency, unspecified; I10 Essential (primary) hypertension
CPT/HCPCS: 36415; 80053; 80061; 82306; 83970; 84443; 85025

== ENCOUNTER 2024-02-16 12:01 | Outpatient (AMB) | payer OTHER, SELFPAY ==
--- NOTE | 2024-02-16 12:46 | A.OFFPC_ITS ---
Vital Signs 02/16/24 12:48 Height 5 ft 1 in Weight 135 lb BMI 25.5 BP 110/62 Blood Pressure Location Lt brachial Position Sitting Pulse 60 Pulse Source Pulse Oximeter Pulse Oximetry (%) 97 Oxygen Delivery Method Room Air Intake Visit Reasons: 6 Month F/U -HTN, OA, hypercalcemia Intake Note: Patient is here to follow up on HTN, OA. Supervisor [place] Required: Yes Supervisor [place] Language: Chief Data Officer Name: Nixon ([id number]) Information Interpreted: non-clinical & clinical Supplemental Nurse: Not Required per policy Accompanied by: Self / Same As Patient Allergies No Known Allergies [No Known Allergies*] Allergy (Verified 02/16/24 13:05) Medication List - Last Reconciled 02/16/24 by Denys Gonsalves MD acetaminophen (Tylenol Extra Strength) 500 mg PO Q6H PRN cholecalciferol (vitamin D3) 25 mcg PO DAILY clotrimazole 1% (Lotrimin AF (clotrimazole)) 1 appl topical BID 2 weeks dexlansoprazole (Dexilant) 60 mg PO DAILY 90 days enalapril maleate 2.5 mg PO DAILY [HANDHELD SHOWER HEAD As directed] hydrochlorothiazide 25 mg PO DAILY loratadine 10 mg PO DAILY PRN 90 days naproxen 500 mg PO BID PRN 10 days peg 3350-electrolytes 236-22.74-6.74 -5.86 gram (Golytely) 240 mL PO Q10M 1 day [QUAD CANE As directed] [SHOWER CHAIR As directed] Tobacco use date assessed: 02/16/24 Fall risk assessment: No Falls in past year Last assessed Fall Risk: 02/16/24 Dental Screening Dental Screen Date: 02/16/24 Did you have a dental visit in the last 12 months?: Yes Did you have a dental problem in the last 6 months where you did not have access to dental care?: No Was dental information given to patient?: Patient has dentist HPI 6 Month F/U -HTN, OA, hypercalcemia HPI Details Patient comes in today for her follow up visit States that she feels okay Still has frequent bilateral shoulder and knee pains (due to OA) and she is now seeing orthopedics for follow up of these - gets cortisone injections from orthopedics as needed with (+) relief of her joint pains for a few months She denies any headaches or dizziness Denies any chest pains, no SOB No nausea/vomiting, no abdominal pain No change in bowel habits noted Needs her Vitamin D Rx refilled She would like to go over the results of her labs done back in October 2023 [facility] Medical History Allergic rhinitis Vitamin D deficiency Overweight (BMI 25.0-29.9) Degenerative joint disease of right shoulder GERD without esophagitis Benign essential hypertension Surgical History H/O local excision of skin lesion History of colonoscopy History of cholecystectomy Family History Father CVD (cardiovascular disease) Mother No problems noted. Daughter In good health Sister In good health Sister In good health Sister In good health Brother In good health Social History Housing: Apartment Alcohol intake: never Patient Tobacco Use Status: Never used Tobacco e-Cigarette/Vaping Use: Never Used Second Hand Smoke Exposure: Yes service: No Current occupational status: retired Cognitive needs: No Hearing needs: No Vision needs: Yes (Glasses) Questionnaire PHQ-9 Over the last 2 weeks, how often have you been bothered by any of the following problems? 1. Little interest or pleasure in doing things: not at all 2. Feeling down, depressed, or hopeless: not at all 3. Trouble falling or staying asleep, or sleeping too much: not at all 4. Feeling tired or having little energy: not at all 5. Poor appetite or overeating: not at all 6. Feeling bad about yourself - or that you are a failure or have let yourself or your family down: not at all 7. Trouble concentrating on things, such as reading the newspaper or watching television: not at all 8. Moving or speaking so slowly that other people could have noticed. Or the opposite - being so fidgety or restless that you have been moving around a lot more than usual: not at all 9. Thoughts that you would be better off or of hurting yourself in some way: not at all Total score: 0 Depression Screening Interpretation: Negative Depression Screening Done: Yes [id number] - PHQ-9 Billing: Yes Source: Developed by Drs. Charli Carlson, Darell Romo and colleagues, with an educational jonathon from [employer]. Thrive Questionnaire Date Thrive assessed: 02/16/24 I am a: Patient What is your living situation today?: I have a steady place to live Within the past 12 months, did the food you bought not last and you didn't have the money to get more?: Never true Within the past 12 months, did you worry whether your food would run out before you got money to buy more?: Never true Do you have trouble paying for medicines?: No Do you have trouble getting transportation to medical appointments?: No Do you have trouble paying your heating and electricity bill?: No Do you have trouble taking care of your child, family member or friend?: No Do you have trouble with day-to-day activities such as bathing, preparing meals, shopping, managing finances, etc.?: No Are you currently unemployed and looking for a job?: No Are you interested in more education?: No Currently or been in a relationship where the following occur: no concerns reported THRIVE Score: 0 AUDIT C Alcohol Use Questionnaire (AUDIT-C) 1. How often do you have a drink containing alcohol?: Never 3. How often do you have six or more drinks on one occasion?: Never Total Score: 0 Score Reviewed/Action Taken: Yes MARY-7 AMB Questionnaire MARY-7 Date MARY - 7 assessed: 02/16/24 Feeling nervous, anxious, or on edge: 0 = Not at all Not being able to stop or control worryin = Not at all Worrying too much about different things: 0 = Not at all Trouble relaxin = Not at all Being so restless that it is hard to sit still: 0 = Not at all Becoming easily annoyed or irritable: 0 = Not at all Feeling afraid as if something awful might happen: 0 = Not at all Total MARY-7 score (0-4 normal; 5-9 mild; 10-14 moderate; 15-21 severe): 0 Source: Developed by Nupur Trevino Kurt Kroenke and colleagues, with an educational jonathon from [employer]. Review of Systems Const Denies chills, Denies fatigue, Denies fever(s) and Denies headache(s) ENT Denies dysphagia, Denies dizziness, Denies otalgia, Denies headache(s), Denies neck pain, Denies odynophagia and Denies sore throat Card Denies chest pain, Denies rapid heart rate, Denies irregular heart rhythm, Denies palpitations and Denies dyspnea Resp Denies chest congestion, Denies cough and Denies dyspnea GI Denies abdominal pain, Denies constipation, Denies dysphagia, Denies heartburn, Denies diarrhea, Denies nausea, Denies odynophagia and Denies vomiting Denies urinary frequency, Denies dysuria and Denies urinary urgency Musc Denies back pain, Reports arthralgias (involving multiple joints,especially over both knees and shoulders) and Denies neck pain Skin/Breast Denies rash Neuro Denies dizziness, Denies headache(s) and Denies paresthesias Endo Denies fatigue and Denies palpitations Physical exam (Primary Care) Vital Signs: Last Vital Signs Pulse 60 02/16/24 12:48 BP 110/62 02/16/24 12:48 Pulse Ox 97 02/16/24 12:48 Oxygen Delivery Method Room Air 02/16/24 12:48 BMI result Body Mass Index 25.5 Tobacco/Smoking Status: Tobacco use Status Tobacco use date assessed 02/16/24 02/16/24 12:57 Patient Tobacco Use Status Never used Tobacco 02/16/24 12:57 e-Cigarette/Vaping Use Never Used 02/16/24 12:57 PHQ-9: PHQ-9 Score PHQ-9: Total score 0 02/16/24 12:57 Depression Screening Interpretation: Negative Thrive Assessment: Date of Thrive Assessment Date Thrive assessed 02/16/24 02/16/24 12:57 Currently or been in a relationship where the following occur: no concerns reported Const General: no acute distress and alert HENMT Ears: TM's normal bilaterally and EAC's normal Throat: Yes posterior oropharynx normal and Yes tonsils normal (no TP congestion) Neck Neck: Yes no lymphadenopathy and Yes supple Thyroid: Thyroid normal Resp Auscultation: clear to auscultation bilaterally, no rales and no wheezes Cardio Rate: regular rate Rhythm: regular rhythm Heart sounds: no murmurs GI Palpation (GI): Soft to palpation and nontender Auscultation: normal bowel sounds General: Yes no CVA tenderness Back/Spine/Pelvis Back: no CVA tenderness Thoracic/Lumbar Spine: No lumbar spinal tenderness Skin Rashes: no rashes Extrem General: Yes no clubbing, cyanosis or edema Right upper extremity: shoulder/upper arm Details: tenderness Location: of the A-C joint Left upper extremity: shoulder/upper arm Details: tenderness Location: of the A- C joint and normal ROM Right lower extremity: knee Details: tenderness Location: of the medial joint line and of the lateral joint line and normal ROM Left lower extremity: knee Details: tenderness Location: of the medial joint line and of the lateral joint line and normal ROM Results Reviewed Results Reviewed: Laboratory Tests 04/24/23 10/24/23 08:40 10:53 WBC 4.0 L Hgb 14.0 Hct 43.5 Plt Count 177 Sodium 141 Potassium 4.0 Creatinine 0.80 Estimated GFR > 60 Fasting Glucose 103 H Calcium 10.4 H AST 18 ALT 16 Triglycerides 78 Cholesterol 180 LDL Cholesterol, Calc 112 H HDL Cholesterol 53 TSH 0.71 PTH Intact 91.4 H Ur Specific [place] 1.020 Urine Protein Negative Urine Glucose (UA) Negative Urine Blood Negative Urine Nitrite Negative Ur Leukocyte Esterase Moderate (2+) H Assessment and Plan Assessment & Plan (1) Benign essential hypertension: Code(s): I10 - Essential (primary) hypertension Plan: Her BP appears well-controlled today Reinforced low sodium diet - goal is systolic BP of at least 130 to 140 mm or less Continue Enalapril 2.5 mg QD and HCTZ 25 mg QD (2) Arthritis of shoulder: Comment: (+) degenerative joint disease of shoulders bilaterally Code(s): M19.019 - Primary osteoarthritis, unspecified shoulder Plan: MRI of the shoulder done on 05/12/2019 showed (+) complex tear of the supraspinatus tendon, degenerative tear of the glenoid labrum and moderate glenohumeral and acromioclavicular osteoarthritis X-rays of the left shoulder done back in July 2022 revealed degenerative osteoarthritis of the glenohumeral and acromioclavicular joints Patient remains adamant about not wanting any surgery or joint replacement done on her shoulders or knees States that her shoulder and knee pains have improved a lot with cortisone injections from orthopedics She will continue to follow up with orthopedics as scheduled (3) Hypercalcemia: Code(s): E83.52 - Hypercalcemia Plan: Patient has been noted consistently to have mild hypercalcemia on her recent labs over the past year PTH level done back in October 2023 revealed a mildly elevated PTH level of 91.4 Will recheck this in 6 months for follow up and if it remains elevated or goes up further, this then confirms DX of primary hyperparathyroidism and she will then need specialty referral for further management (4) GERD without esophagitis: Code(s): K21.9 - Gastro-esophageal reflux disease without esophagitis Plan: Dietary restrictions reinforced Continue Dexilant 60 mg QD (5) Allergic rhinitis: Code(s): J30.9 - Allergic rhinitis, unspecified Qualifiers: Allergic rhinitis trigger: unspecified Allergic rhinitis seasonality: unspecified Qualified Code(s): J30.9 - Allergic rhinitis, unspecified Plan: Continue Loratadine 10 mg QD PRN (6) Vitamin D deficiency: Code(s): E55.9 - Vitamin D deficiency, unspecified Plan: Continue Vitamin D3 1000 units QD - Rx refilled (7) Overweight (BMI 25.0-29.9): Code(s): E66.3 - Overweight Plan: Reinforced diet/exercise as tolerated/lose weight Plan Follow up in 6 months Orders: Orders Complete Blood Count Auto Diff 6 Months D64.9 - Anemia, unspecified Vitamin D 25-OH Total 6 Months E55.9 - Vitamin D deficiency, unspecified Parathyroid Hormone Intact 6 Months E83.52 - Hypercalcemia Comprehensive [place]. Panel Fast 6 Months E78.00 - Pure hypercholesterolemia, unspecified Lipid Panel 6 Months E78.00 - Pure hypercholesterolemia, unspecified TSH reflex Free T4 6 Months E78.00 - Pure hypercholesterolemia, unspecified UA CC w/rflx Micro + Cult 6 Months R30.0 - Dysuria Medications: Changed From cholecalciferol (vitamin D3) 25 mcg PO DAILY To cholecalciferol (vitamin D3) 25 mcg PO DAILY 90 days 90 caps 3RF Coding Level of Care Code Est Pt Level 4 (45805) Diagnoses Benign essential hypertension I10 Arthritis of shoulder M19.019 Hypercalcemia E83.52 GERD without esophagitis K21.9 Allergic rhinitis, unspecified seasonality, unspecified trigger J30.9 Allergic rhinitis trigger: unspecified Allergic rhinitis seasonality: unspecified Vitamin D deficiency E55.9 Overweight (BMI 25.0-29.9) E66.3
[2024-02-16 12:48] VITALS: BP 110/62; PULSE 60; O2SAT 97; BMI 25.5
== END 2024-02-16 13:24 | disposition home or self-care (01) ==
PROVIDERS: PCP Internal Medicine; Visit Provider Internal Medicine
DX: I10 Essential (primary) hypertension (principal); M19.019 Primary osteoarthritis, unspecified shoulder; E83.52 Hypercalcemia; K21.9 Gastro-esophageal reflux disease without esophagitis; J30.9 Allergic rhinitis, unspecified; E55.9 Vitamin D deficiency, unspecified; E66.3 Overweight
CPT/HCPCS: 99214

== ENCOUNTER 2024-02-16 13:33 | Outpatient (REF) | payer OTHER, SELFPAY ==
--- NOTE | ~2024-02-16 | MM_ITS ---
EXAMINATION: MM SCREENING DIGITAL BREAST TOMOSYNTHESIS, BILATERAL CLINICAL INFORMATION: Screening. Asymptomatic. COMPARISON: Mammography: This study is compared with prior exams dating back to 2021. TECHNIQUE: Digital breast tomosynthesis is performed in both the craniocaudal and mediolateral oblique views along with computer-aided detection (CAD). Synthesized 2D images are generated from the tomosynthesis. FINDINGS: The breasts are almost entirely fatty (ACR BI-RADS breast composition Category a). There are no significant masses, abnormal calcifications, or other abnormalities. MM/MM tomosynthesis screening BI IMPRESSION: No mammographic evidence of malignancy. ASSESSMENT: BI-RADS BI-RADS 1 - Negative RECOMMENDATION: Routine annual mammography screening. 1 year F/U This examination should not preclude the clinical evaluation of a suspicious palpable abnormality. This patient's information was entered into a reminder system with a target due date for their next mammogram.
== END 2024-02-16 13:34 | disposition home or self-care (01) ==
LOC: HO.MAMMO 13:33
PROVIDERS: PCP Internal Medicine; Visit Provider Internal Medicine
DX: Z12.31 Encounter for screening mammogram for malignant neoplasm of breast (principal)
CPT/HCPCS: 77063; 77067

== ENCOUNTER → 2024-02-16 14:45 | Outpatient (BNV) | payer OTHER, SELFPAY | PROVIDERS: PCP Internal Medicine; Visit Provider Radiology Diagnostic Radiology | DX: Z12.31 Encounter for screening mammogram for malignant neoplasm of breast (principal) | CPT/HCPCS: 77063; 77067 ==

== ENCOUNTER 2024-04-15 18:14 | Emergency (ER) | payer OTHER, SELFPAY ==
[2024-04-15 18:27] VITALS: BP 149/66; BP 150/80; PULSE 70; PULSE 74; RESP 18; TEMP 37.1; O2SAT 100; BMI 12.5
--- NOTE | 2024-04-15 18:38 | MHC.EDTECH ---
patient was biba from home ,vitals taken and Patient was hooked up to monitoring tech ,Patient was change into hospital gown ,Call garcia within Pt reach .
--- NOTE | 2024-04-15 20:15 | ED_ITS ---
HPI - Anxiety General Chief Complaint: Anxiety Stated Complaint: PANIC ATTACK ANXIOUS Time Seen by Provider: 04/15/24 18:36 Source: patient and EMS Mode of arrival: EMS Limitations: no limitations History of Present Illness ED Provider: Dr. Kenyatta Lemus HPI narrative: Patient comes to the emergency room complaining of a panic attack. Patient states that she has a family member that is very sick in the hospital, intubated after a failed liver transplant. Patient states that it was family argument earlier today, patient states that she could not take it any longer and her ?mind exploded . Patient states she was extremely anxious, angry, denies any headache. Patient states that she has been family members to come to the emergency room so she could relax. At this time, patient has no symptoms, states that she still feels a bit nervous but overall feels much better. Patient denies SI or HI, patient requesting food Related Data Previous Rx's ?Medication ?Instructions ?Recorded acetaminophen 500 mg tablet 500 mg PO Q6H PRN fever or pain 07/27/22 (Tylenol Extra Strength) #14 tabs naproxen 500 mg tablet 500 mg PO BID PRN pain 10 days #20 07/27/22 tabs clotrimazole 1 % topical cream 1 appl topical BID 2 weeks #45 10/29/22 (Lotrimin AF (clotrimazole)) grams peg 3350-electrolytes 236 240 ml PO Q10M 1 day #4,000 mL 12/09/22 gram-22.74 gram-6.74 gram-5.86 gram solution (Golytely) loratadine 10 mg tablet 10 mg PO DAILY PRN allergy 04/28/23 symptoms 90 days #90 tabs QUAD CANE #1 ea 05/12/23 SHOWER CHAIR #1 ea 05/12/23 hydrochlorothiazide 25 mg tablet 25 mg PO DAILY #90 tabs 11/13/23 HANDHELD SHOWER HEAD #1 ea 01/28/24 cholecalciferol (vitamin D3) 25 25 mcg PO DAILY 90 days #90 caps 02/16/24 mcg (1,000 unit) capsule dexlansoprazole 60 mg 60 mg PO DAILY 90 days #90 caps 04/06/24 capsule,biphase delayed release (Dexilant) enalapril maleate 2.5 mg tablet 2.5 mg PO DAILY #90 tabs 04/12/24 Allergies Allergy/AdvReac Type Severity Reaction Status Date / Time No Known Allergies Allergy Verified 04/15/24 18:29 [No Known Allergies*] Review of Systems Review of Systems: Constitutional : No Weight loss, No Fever, No Chills, No Night Sweats, No Fatigue, No Malaise ENT/Mouth : No Hearing loss, No Ear Pain, No Nasal Congestion, No Sinus Pain, No Hoarseness, No sore throat, No Rhinorrhea, No Swallowing Difficulty Eyes: No Eye Pain, No Swelling, No Redness, No Foreign Body, No Discharge, No Vision Changes Cardiovascular : No Chest Pain, No SOB, No Dyspnea on Exertion, No Orthopnea, No Edema, No Palpitations Respiratory : No Cough, No Sputum, No Wheezing, No Smoke Exposure, No Dyspnea Gastrointestinal : No Nausea, No Vomiting, No Diarrhea, No Constipation, No abdominal Pain, No Hematochezia, No Melena Genitourinary : no irregular bleeding, No Dysuria, No Urinary Frequency, No Hematuria, No Urinary Incontinence, No Urgency, No Flank Pain, No Urinary Flow Changes, No Hesitancy Musculoskeletal : No joint pain, No Myalgias, No Joint Swelling Skin : No Skin Lesions, No rash Neuro : No Weakness, No Numbness, No Paresthesias, No Loss of Consciousness, No Dizziness, No Headache Psych : Patient complaining of feeling anxious, No Depression, No SI/HI/AH/VH, No Social Issues, Heme/Lymph: No Bruising, No Bleeding,No Lymphadenopathy Endocrine : No Polyuria, No Polydipsia, No Temperature Intolerance FOR[facility]LY [facility] Past Medical History Medical History Allergic rhinitis Vitamin D deficiency Overweight (BMI 25.0-29.9) Degenerative joint disease of right shoulder GERD without esophagitis Benign essential hypertension Surgical History H/O local excision of skin lesion History of colonoscopy History of cholecystectomy Family History Family History Father CVD (cardiovascular disease) Mother No problems noted. Daughter In good health Sister In good health Sister In good health Sister In good health Brother In good health Social History Social History Housing: Apartment Alcohol intake: never Patient Tobacco Use Status: Never used Tobacco e-Cigarette/Vaping Use: Never Used Second Hand Smoke Exposure: Yes Advance Directives: No Advance Directives Information Provided: No Do you have a plan to hurt others: No Plan service: No Current occupational status: retired Cognitive needs: No Hearing needs: No Vision needs: Yes (Glasses) Physical Exam Vital Signs: Vital Signs: Last Vital Signs Temp 98.7 F 04/15/24 18:27 Pulse 74 04/15/24 18:27 Resp 18 04/15/24 18:27 BP 149/66 H 04/15/24 18:27 Pulse Ox 100 04/15/24 18:27 O2 Del Method Room Air 04/15/24 18:27 BMI result Body Mass Index 12.5 Const: Other: Appearance: Alert. Oriented X3. No acute distress. Eyes: Pupils equal, round and reactive to light. ENT: Pharynx normal. Neck: Normal inspection. Neck supple. No lymph nodes noted. No crepitus CVS: Normal heart rate and rhythm. Pulses normal. Normal S1 and S2 Respiratory: No respiratory distress. Breath sounds normal. No Wheezing. No rales Abdomen: Soft and nontender. No rigidity. No distention. Skin: Skin warm and dry. Normal skin color. Normal skin turgor. Extremities: No lower extremity edema. No Lacerations. No Rash Neuro: Oriented X 3. No motor deficit. No sensory deficit. Moving all extremities. No slurred speech. CN 2 through 12 grossly intact Psych: calm, cooperative, normal affect Medical Decision Making Medical Decision Making MDM Narrative: Patient states that she feels much more relaxed now. Patient never had any chest pain or shortness of breath. Discharge Plan Discharge Clinical Impression: Anxiety Patient Disposition: Home, Self-Care Instructions: Anxiety (ED) Additional Instructions: Please follow-up with your primary care physician tomorrow. If you have any worsening or new symptoms, please return to the emergency room or call 911 Prescriptions: No Action peg 3350-electrolytes [Golytely] 236-22.74-6.74 -5.86 gram recon soln 240 ml PO Q10M 1 Days Qty: 4000 0RF Rx Instructions: until fecal effluent is clear; do not exceed a total volume of 2,000 mL (DME) QUAD CANE See Rx Instructions .Route .MEDSUPPLY Qty: 1 0RF Rx Instructions: As directed (DME) SHOWER CHAIR See Rx Instructions .Route .MEDSUPPLY Qty: 1 0RF Rx Instructions: As directed hydrochlorothiazide 25 mg tablet 25 mg PO DAILY Qty: 90 1RF (DME) HANDHELD SHOWER HEAD See Rx Instructions .Route .MEDSUPPLY Qty: 1 0RF Rx Instructions: As directed Dexilant 60 mg capsule,biphase delayed releas 60 mg PO DAILY 90 Days Qty: 90 3RF enalapril maleate 2.5 mg tablet 2.5 mg PO DAILY Qty: 90 3RF acetaminophen [Tylenol Extra Strength] 500 mg tablet 500 mg PO Q6H PRN (Reason: fever or pain) Qty: 14 0RF naproxen 500 mg tablet 500 mg PO BID PRN (Reason: pain) 10 Days Qty: 20 0RF clotrimazole [Lotrimin AF (clotrimazole)] 1 % cream 1 appl topical BID 14 Days Qty: 45 0RF loratadine 10 mg tablet 10 mg PO DAILY PRN (Reason: allergy symptoms) 90 Days Qty: 90 3RF cholecalciferol (vitamin D3) 25 mcg (1,000 unit) capsule 25 mcg PO DAILY 90 Days Qty: 90 3RF Print Language: Occitan
[2024-04-15 20:26] VITALS: BP 143/68; PULSE 74; RESP 16; TEMP 36.6; O2SAT 97
== END 2024-04-15 20:27 | disposition home or self-care (01) ==
PROVIDERS: Emergency Provider Emergency Medicine
DX: F41.9 Anxiety disorder, unspecified (principal)
CPT/HCPCS: 99282; 99283

== ENCOUNTER 2024-07-29 12:23 | Outpatient (AMB) | payer OTHER, SELFPAY ==
--- NOTE | 2024-07-29 12:24 | A.OFFPC_ITS ---
Vital Signs 07/29/24 12:25 Height 5 ft 1 in Weight 123 lb BMI 23.2 BP 130/70 Blood Pressure Location Lt brachial Position Sitting Pulse 81 Pulse Source Pulse Oximeter Pulse Oximetry (%) 99 Oxygen Delivery Method Room Air Intake Visit Reasons: [facility] 08/24 Dialysis Patient Care Technician Required: No Accompanied by: Self / Same As Patient Allergies No Known Allergies [No Known Allergies*] Allergy (Verified 07/29/24 12:39) Medication List - Last Reconciled 07/29/24 by Denys Gonsalves MD acetaminophen (Tylenol Extra Strength) 500 mg PO Q6H PRN cholecalciferol (vitamin D3) 25 mcg PO DAILY 90 days clotrimazole 1% (Lotrimin AF (clotrimazole)) 1 appl topical BID 2 weeks dexlansoprazole (Dexilant) 60 mg PO DAILY 90 days enalapril maleate 2.5 mg PO DAILY [HANDHELD SHOWER HEAD As directed] hydrochlorothiazide 25 mg PO DAILY loratadine 10 mg PO DAILY PRN 90 days naproxen 500 mg PO BID PRN 10 days peg 3350-electrolytes 236-22.74-6.74 -5.86 gram (Golytely) 240 mL PO Q10M 1 day [QUAD CANE As directed] [SHOWER CHAIR As directed] Tobacco use date assessed: 02/16/24 Fall risk assessment: No Falls in past year Last assessed Fall Risk: 07/29/24 Dental Screening Dental Screen Date: 07/29/24 Did you have a dental visit in the last 12 months?: Yes Did you have a dental problem in the last 6 months where you did not have access to dental care?: No Was dental information given to patient?: Patient has dentist HPI [facility] 08/24 HPI Details Patient comes in today at the request of Dr[facility] for a preoperative medical examination for clearance for surgery She is scheduled for cataract extraction/phacoemulsification with IOL of the left eye under MAC on 08/24/2024, followed by the same procedure on the right eye a few weeks later on 09/17/2024 Patient adds that she woke up yesterday morning and noticed (+) blood in her right eye (medial side) She denies any eye pain and denies any increased blurring of her vision more than usual States that she feels okay otherwise Denies any headaches or dizziness Denies any chest pains, no increased SOB No nausea/vomiting, no abdominal pain No change in bowel habits noted She would like to see if she can get her flu shot today [facility] Medical History (Updated 07/30/24 @ 03:55 by Denys Gonsalves MD) Cataracts, bilateral Allergic rhinitis Vitamin D deficiency Overweight (BMI 25.0-29.9) Degenerative joint disease of right shoulder GERD without esophagitis Benign essential hypertension Surgical History H/O local excision of skin lesion History of colonoscopy History of cholecystectomy Family History Father CVD (cardiovascular disease) Mother No problems noted. Daughter In good health Sister In good health Sister In good health Sister In good health Brother In good health Social History Housing: Apartment Alcohol intake: never Patient Tobacco Use Status: Never used Tobacco e-Cigarette/Vaping Use: Never Used Second Hand Smoke Exposure: Yes service: No Current occupational status: retired Cognitive needs: No Hearing needs: No Vision needs: Yes (Glasses) Questionnaire PHQ-9 Over the last 2 weeks, how often have you been bothered by any of the following problems? Depression Screening Interpretation: Negative Depression Screening Done: Yes Source: Developed by Drs. Charli Carlson, Darell Romo and colleagues, with an educational jonathon from [employer]. Thrive Questionnaire Date Thrive assessed: 02/16/24 THRIVE Score: 0 MARY-7 AMB Questionnaire MARY-7 Date MARY - 7 assessed: 02/16/24 Source: Developed by Drs. Charli Carlson, Nupur Persaud, Darell Lee and colleagues, with an educational jonathon from [employer]. Review of Systems Const Denies chills, Denies fatigue, Denies fever(s) and Denies headache(s) Eyes Details: (+) blood in the right eye on the nasal (medial side) Reports blurry vision (in both eyes), Denies loss of vision and Denies eye pain ENT Denies dysphagia, Denies dizziness, Denies otalgia, Denies headache(s), Denies neck pain, Denies odynophagia and Denies sore throat Card Denies chest pain, Denies irregular heart rhythm, Denies palpitations and Denies dyspnea Resp Denies chest congestion, Denies cough and Denies dyspnea GI Denies abdominal pain, Denies constipation, Denies dysphagia, Denies heartburn, Denies diarrhea, Denies nausea, Denies odynophagia and Denies vomiting Denies urinary frequency, Denies dysuria and Denies urinary urgency Musc Denies back pain, Reports arthralgias (involving multiple joints,especially over both knees and shoulders) and Denies neck pain Skin/Breast Denies rash Neuro Denies dizziness, Denies headache(s), Denies loss of vision and Denies paresthesias Endo Denies fatigue and Denies palpitations Physical exam (Primary Care) Vital Signs: Last Vital Signs Pulse 81 07/29/24 12:25 BP 130/70 07/29/24 12:25 Pulse Ox 99 07/29/24 12:25 Oxygen Delivery Method Room Air 07/29/24 12:25 BMI result Body Mass Index 23.2 Tobacco/Smoking Status: Tobacco use Status Tobacco use date assessed 02/16/24 07/29/24 12:28 Patient Tobacco Use Status Never used Tobacco 07/29/24 12:28 e-Cigarette/Vaping Use Never Used 07/29/24 12:28 Depression Screening Interpretation: Negative Thrive Assessment: Date of Thrive Assessment Date Thrive assessed 02/16/24 07/29/24 12:28 Const General: no acute distress and alert HENMT Ears: TM's normal bilaterally and EAC's normal Throat: Yes posterior oropharynx normal and Yes tonsils normal (no TP congestion) Eyes Conjunctivae: conjunctival abnormal right (on the medial/nasal side) subconjunctival hemorrhage Neck Neck: Yes no lymphadenopathy and Yes supple Thyroid: Thyroid normal Resp Auscultation: clear to auscultation bilaterally, no rales and no wheezes Cardio Rate: regular rate Rhythm: regular rhythm Heart sounds: no murmurs GI Palpation (GI): Soft to palpation and nontender Auscultation: normal bowel sounds General: Yes no CVA tenderness Back/Spine/Pelvis Back: no CVA tenderness Thoracic/Lumbar Spine: No lumbar spinal tenderness Skin Rashes: no rashes Extrem General: Yes no clubbing, cyanosis or edema Right upper extremity: shoulder/upper arm Details: tenderness Location: of the A-C joint Left upper extremity: shoulder/upper arm Details: tenderness Location: of the A- C joint and normal ROM Right lower extremity: knee Details: tenderness Location: of the medial joint line and of the lateral joint line and normal ROM Left lower extremity: knee Details: tenderness Location: of the medial joint line and of the lateral joint line and normal ROM Office Procedures Flu Questionnaire Does the patient have a severe egg allergy?: No Does the patient have severe life threatening allergies?: No Does the patient have a fever or illness today?: No Has the patient ever had Guillain-[place] Syndrome?: No Has the patient ever had any past reaction to a flu shot?: No Immunizations Fluarix Triv [id number] (PF) 45 mcg (15 mcg x 3)/0.5 mL IM syringe Performing Provider: Denys Gonsalves MD [facility] Administered by: JO Holcomb on 07/29/24 12:54 Dose Route Admin Location Dispensed Lot Number Expiration Date NDC B Operator 0.5 mL IM Right Deltoid 0.5 mL [id number] 03/14/25 88716-696-40 [id number] VIS Given Date VIS Provided VIS Publication Date 07/29/24 Single Vaccine 21 Eligibility Eligibility Date Funding Source Not [facility] Eligible 07/29/24 Private Coding Level of Care Code Est Pt Level 4 (42950) Diagnoses Preoperative examination Z01.818 Age-related cataract of both eyes, unspecified age-related cataract type H25.9 Cataract type: age-related Age-related cataract type: unspecified Conjunctival hemorrhage of right eye H11.31 Benign essential hypertension I10 Arthritis of shoulder M19.019 Hypercalcemia E83.52 GERD without esophagitis K21.9 Vitamin D deficiency E55.9 Allergic rhinitis, unspecified seasonality, unspecified trigger J30.9 Allergic rhinitis trigger: unspecified Allergic rhinitis seasonality: unspecified Overweight (BMI 25.0-29.9) E66.3 Assessment & Plan Assessment & Plan (1) Preoperative examination: Code(s): Z01.818 - Encounter for other preprocedural examination Category: Medical Plan: Patient presents with acceptable risk for planned low cardiac risk procedure She does not have any significant cardiac or pulmonary history, is independent with all ADLs and has hardly any restrictions with activity tolerance (2) Cataracts, bilateral: Code(s): H26.9 - Unspecified cataract Category: Medical Qualifiers: Cataract type: age-related Age-related cataract type: unspecified Qualified Code(s): H25.9 - Unspecified age-related cataract Plan: She is scheduled for cataract extraction/phacoemulsification with IOL of the left eye under MAC on 08/24/2024, followed by the same procedure on the right eye a few weeks later on 09/17/[address] [facility] (3) Conjunctival hemorrhage of right eye: Code(s): H11.31 - Conjunctival hemorrhage, right eye Category: Medical Plan: Patient is reassured that this is a benign condition and that the blood in her right eye should gradually clear up on its own in a few days without any intervention required (4) Benign essential hypertension: Code(s): I10 - Essential (primary) hypertension Category: Medical Plan: Reinforced low sodium diet - goal is systolic BP of at least 130 to 140 mm or less Continue Enalapril 2.5 mg QD and HCTZ 25 mg QD (5) Arthritis of shoulder: Comment: (+) degenerative joint disease of shoulders bilaterally Code(s): M19.019 - Primary osteoarthritis, unspecified shoulder Category: Medical Plan: MRI of the shoulder done on 05/12/2019 showed (+) complex tear of the supraspin atus tendon, degenerative tear of the glenoid labrum and moderate glenohumeral and acromioclavicular osteoarthritis X-rays of the left shoulder done back in July 2022 revealed degenerative osteoarthritis of the glenohumeral and acromioclavicular joints Patient remains adamant about not wanting any surgery or joint replacement done on her shoulders or knees States that her shoulder and knee pains have improved a lot with cortisone injections from orthopedics and have been mostly manageable so far She will continue to follow up with orthopedics as scheduled (6) Hypercalcemia: Code(s): E83.52 - Hypercalcemia Category: Medical Plan: Patient has been noted consistently to have mild hypercalcemia on her recent labs over the past year PTH level done back in October 2023 revealed a mildly elevated PTH level of 91.4 Will recheck this for follow up as scheduled next month and if it remains elevated or goes up further, this then confirms Dx of primary hyperparathyroidism and will then refer her to endocrinology for further management (7) GERD without esophagitis: Code(s): K21.9 - Gastro-esophageal reflux disease without esophagitis Category: Medical Plan: Dietary restrictions reinforced Continue Dexilant 60 mg QD (8) Vitamin D deficiency: Code(s): E55.9 - Vitamin D deficiency, unspecified Category: Medical Plan: Continue Vitamin D3 1000 units QD (9) Allergic rhinitis: Code(s): J30.9 - Allergic rhinitis, unspecified Category: Medical Qualifiers: Allergic rhinitis trigger: unspecified Allergic rhinitis seasonality: u nspecified Qualified Code(s): J30.9 - Allergic rhinitis, unspecified Plan: Continue Loratadine 10 mg QD PRN (10) Overweight (BMI 25.0-29.9): Code(s): E66.3 - Overweight Category: Medical Plan: Reinforced diet/exercise as tolerated/lose weight Plan As requested, flu vaccine given to the patient today Patient is currently medically optimized and has no contraindications to undergo planned ophthalmologic procedures - she is CLEARED for surgery Follow up as scheduled next month Orders: Orders Influenza [id number] Immunization 07/29/24 Z23 - Encounter for immunization
[2024-07-29 12:25] VITALS: BP 130/70; PULSE 81; O2SAT 99; BMI 23.2
== END 2024-07-29 12:48 | disposition home or self-care (01) ==
PROVIDERS: PCP Internal Medicine; Visit Provider Internal Medicine
DX: Z01.818 Encounter for other preprocedural examination (principal); H25.9 Unspecified age-related cataract; H11.31 Conjunctival hemorrhage, right eye; I10 Essential (primary) hypertension; M19.019 Primary osteoarthritis, unspecified shoulder; E83.52 Hypercalcemia; K21.9 Gastro-esophageal reflux disease without esophagitis; E55.9 Vitamin D deficiency, unspecified; J30.9 Allergic rhinitis, unspecified; E66.3 Overweight

== ENCOUNTER → 2024-07-29 12:23 | Outpatient (BNVA) | payer OTHER, SELFPAY | PROVIDERS: PCP Internal Medicine; Visit Provider Internal Medicine | DX: Z01.818 Encounter for other preprocedural examination (principal); Z23 Encounter for immunization; H25.9 Unspecified age-related cataract; H11.31 Conjunctival hemorrhage, right eye; I10 Essential (primary) hypertension; M19.019 Primary osteoarthritis, unspecified shoulder; K21.9 Gastro-esophageal reflux disease without esophagitis; E83.52 Hypercalcemia; J30.9 Allergic rhinitis, unspecified; E66.3 Overweight | CPT/HCPCS: 90471; 90656; 99212 ==

== ENCOUNTER 2024-08-13 09:40 | Outpatient (REF) | payer OTHER, SELFPAY ==
[2024-08-13 09:54] LABS: MANUAL DIFF FLAG NO
[2024-08-13 10:23] LABS: Basophils Absolute Auto 0.1 X10*3/uL (0.0-0.2); Basophils Percent Auto 0.9 % (0-2); Eosinophils Absolute Auto 0.1 X10*3/uL (0.0-0.4); Eosinophils Percent Auto 2.2 % (0-4); Hematocrit 41.8 % (37.0-47.0); Imm Gran Abs Auto 0.02 X10*3/uL (0.00-0.03); Imm Gran Pct Auto 0.3 % (0.0-0.4); Lymphocytes Absolute Auto 1.6 X10*3/uL (1.2-4.9); Lymphocytes Percent Auto 27.6 % (20-40); Mean Corpuscular HGB Conc 33.5 g/dl (31.0-35.0); Mean Corpuscular Hemoglobin 31.7 pg (27.0-33.0); Mean Corpuscular Volume 94.6 fL (80.0-98.0); Mean Platelet Volume 12.6 fL (9.4-12.3); Monocytes Absolute Auto 0.5 X10*3/uL (0.1-1.2); Monocytes Percent Auto 8.2 % (2-11); Neutrophils Absolute Auto 3.6 x10*3/uL (2.0-8.3); Neutrophils Percent Auto 60.8 % (45-73); Platelet Count 182 X10*3/uL (160-400); Red Blood Count 4.42 X10*6/uL (4.20-5.50); White Blood Count 5.9 X10*3/uL (4.8-10.8)
[2024-08-13 10:37] LABS: Appearance Urine Cloudy; Color Urine Yellow; Glucose Urine UA Negative (Negative); Leukocyte Esterase Urine Large (3+) (Negative); Nitrite Urine Negative (Negative); PH 5.5 (5.0-9.0); UMIC TRIGGER UACC YES; Urine Blood Negative (Negative); Urine Ketones Negative (Negative); Urine Protein Trace mg/dL (Neg-Trace)
[2024-08-13 10:42] LABS: Bacteria Urine 4+ (None Seen); Hyaline Casts Urine 0-2 /LPF (0-2); RBC Urine 0-2 /HPF (0-2); UACC Culture Trigger YES; WBC Urine >50 /HPF (0-5)
[2024-08-13 11:07] LABS: Parathyroid Hormone Intact 77.7 pg/mL (8.7-77.1)
[2024-08-13 11:11] LABS: Alanine Aminotransferase 15 U/L (0-31); Alkaline Phosphatase 67 U/L (39-117); Anion Gap 11 (12-20); Aspartate Amino Transferase 19 U/L (5-31); Bilirubin Total 0.5 mg/dL (0.0-1.0); Blood Urea Nitrogen 17 mg/dL (9-16); Calcium 9.9 mg/dL (8.4-10.2); Carbon Dioxide 28 mmol/L (22-29); Chloride 108 mmol/L (96-108); Cholesterol 175 mg/dL (<200); Estimated Glomerular Filt Rate > 60; Glucose Fasting 98 mg/dL (60-99); HDL Cholesterol 60 mg/dL (>40); LDL Cholesterol Calculated 106 mg/dL (<100); Potassium 3.3 mmol/L (3.3-5.1); Sodium 144 mmol/L (135-145); Total Protein 6.5 g/dL (6.5-8.0); Triglycerides 47 mg/dL (<150)
[2024-08-13 11:27] LABS: Vitamin D 25-OH Total 119.7 ng/mL (>30)
== END 2024-08-13 09:41 | disposition home or self-care (01) ==
LOC: HO.LAB 09:40
PROVIDERS: PCP Internal Medicine; Visit Provider Internal Medicine
DX: D64.9 Anemia, unspecified (principal); E78.00 Pure hypercholesterolemia, unspecified; E83.52 Hypercalcemia; R30.0 Dysuria
CPT/HCPCS: 36415; 80053; 80061; 81001; 82306; 83970; 84443; 85025; 87086

== ENCOUNTER 2024-08-18 09:49 | Outpatient (AMB) | payer OTHER, SELFPAY ==
[2024-08-18 09:52] VITALS: BP 124/78; PULSE 71; O2SAT 99; BMI 24.2
--- NOTE | 2024-08-18 09:52 | A.OFFPC_ITS ---
Vital Signs 08/18/24 09:52 Height 5 ft 1 in Weight 128 lb 2 oz BMI 24.2 BP 124/78 Blood Pressure Location Lt brachial Position Sitting Pulse 71 Pulse Source Pulse Oximeter Pulse Oximetry (%) 99 Oxygen Delivery Method Room Air Intake Visit Reasons: DLD, OA, GERD, Hypercalcemia- See Comment Financial Compliance Officer Required: No Accompanied by: Self / Same As Patient Allergies No Known Allergies [No Known Allergies*] Allergy (Verified 08/18/24 10:32) Medication List - Last Reconciled 08/18/24 by Denys Gonsalves MD acetaminophen (Tylenol Extra Strength) 500 mg PO Q6H PRN cholecalciferol (vitamin D3) 25 mcg PO DAILY 90 days clotrimazole 1% (Lotrimin AF (clotrimazole)) 1 appl topical BID 2 weeks dexlansoprazole (Dexilant) 60 mg PO DAILY 90 days enalapril maleate 2.5 mg PO DAILY [HANDHELD SHOWER HEAD As directed] hydrochlorothiazide 25 mg PO DAILY loratadine 10 mg PO DAILY PRN 90 days naproxen 500 mg PO BID PRN 10 days peg 3350-electrolytes 236-22.74-6.74 -5.86 gram (Golytely) 240 mL PO Q10M 1 day [QUAD CANE As directed] [SHOWER CHAIR As directed] Tobacco use date assessed: 08/18/24 Fall risk assessment: 1 Fall in past year Last assessed Fall Risk: 08/18/24 Dental Screening Dental Screen Date: 08/18/24 Did you have a dental visit in the last 12 months?: Yes Did you have a dental problem in the last 6 months where you did not have access to dental care?: No Was dental information given to patient?: Patient has dentist HPI DLD, OA, GERD, Hypercalcemia- See Comment HPI Details Patient comes in today for her annual physical examination States that she feels okay She denies any headaches or dizziness Denies any chest pains, no SOB No nausea/vomiting, no abdominal pain No change in bowel habits noted Denies any acute urinary symptoms She had her follow-up labs done a few days ago - to discuss her results She had her repeat colonoscopy done last year on 12/10/[address] Talavera - (+) tubular adenoma and she was recommended to have repeat colonoscopy done in 3 years (2025) She had her annual mammogram done back in February 2024 and is scheduled for her repeat mammogram already on 02/17/2025 She no longer keeps up with her annual gynecology exam and pap smear She does not have had BMD done in the past for osteoporosis screening PENDING SALE TO [facility] Medical History Cataracts, bilateral Allergic rhinitis Vitamin D deficiency Overweight (BMI 25.0-29.9) Degenerative joint disease of right shoulder GERD without esophagitis Benign essential hypertension Surgical History H/O local excision of skin lesion History of colonoscopy History of cholecystectomy Family History Father CVD (cardiovascular disease) Mother No problems noted. Daughter In good health Sister In good health Sister In good health Sister In good health Brother In good health Social History Housing: Apartment Alcohol intake: never Patient Tobacco Use Status: Never used Tobacco e-Cigarette/Vaping Use: Never Used Second Hand Smoke Exposure: Yes service: No Current occupational status: retired Cognitive needs: No Hearing needs: No Vision needs: Yes (Glasses) Questionnaire PHQ-9 Over the last 2 weeks, how often have you been bothered by any of the following problems? 1. Little interest or pleasure in doing things: not at all 2. Feeling down, depressed, or hopeless: not at all 3. Trouble falling or staying asleep, or sleeping too much: not at all 4. Feeling tired or having little energy: not at all 5. Poor appetite or overeating: not at all 6. Feeling bad about yourself - or that you are a failure or have let yourself or your family down: not at all 7. Trouble concentrating on things, such as reading the newspaper or watching television: not at all 8. Moving or speaking so slowly that other people could have noticed. Or the opposite - being so fidgety or restless that you have been moving around a lot more than usual: not at all 9. Thoughts that you would be better off or of hurting yourself in some way: not at all Total score: 0 Depression Screening Interpretation: Negative Depression Screening Done: Yes [id number] - PHQ-9 Billing: Yes Source: Developed by Drs. Charli Carlson, Nupur Persaud, Darell Lee and colleagues, with an educational jonathon from [employer]. Thrive Questionnaire Date Thrive assessed: 08/18/24 I am a: Patient What is your living situation today?: I have a steady place to live Within the past 12 months, did the food you bought not last and you didn't have the money to get more?: Never true Within the past 12 months, did you worry whether your food would run out before you got money to buy more?: Never true Do you have trouble paying for medicines?: No Do you have trouble getting transportation to medical appointments?: No Do you have trouble paying your heating and electricity bill?: No Do you have trouble taking care of your child, family member or friend?: No Do you have trouble with day-to-day activities such as bathing, preparing meals, shopping, managing finances, etc.?: No Are you currently unemployed and looking for a job?: No Are you interested in more education?: No Please select the resources that you would like help with: None Currently or been in a relationship where the following occur: No concerns reported THRIVE Score: 0 AUDIT C Alcohol Use Questionnaire (AUDIT-C) 1. How often do you have a drink containing alcohol?: Never 3. How often do you have six or more drinks on one occasion?: Never Total Score: 0 Score Reviewed/Action Taken: Yes MARY-7 AMB Questionnaire MARY-7 Date MARY - 7 assessed: 08/18/24 Feeling nervous, anxious, or on edge: 0 = Not at all Not being able to stop or control worryin = Not at all Worrying too much about different things: 0 = Not at all Trouble relaxin = Not at all Being so restless that it is hard to sit still: 0 = Not at all Becoming easily annoyed or irritable: 0 = Not at all Feeling afraid as if something awful might happen: 0 = Not at all Total MARY-7 score (0-4 normal; 5-9 mild; 10-14 moderate; 15-21 severe): 0 Source: Developed by Drs. Charli Carlson, Nupur Persaud, Darell Lee and colleagues, with an educational jonathon from [employer]. Review of Systems Const Denies chills, Denies fatigue, Denies fever(s), Denies headache(s) and Denies malaise Eyes Denies blurry vision, Denies change in vision, Denies irritation and Denies itchy eyes ENT Denies dysphagia, Denies dizziness, Denies headache(s), Denies neck pain and Denies odynophagia Card Denies chest pain, Denies rapid heart rate, Denies irregular heart rhythm, Denies palpitations and Denies dyspnea Resp Denies chest congestion, Denies cough, Denies dyspnea and Denies wheezing GI Denies abdominal pain, Denies bloating, Denies constipation, Denies dysphagia, Denies heartburn, Denies diarrhea, Denies nausea, Denies odynophagia and Denies vomiting Denies hematuria, Denies urinary frequency, Denies dysuria, Denies urinary incontinence and Denies urinary urgency Musc Denies back pain, Reports arthralgias (involving multiple joints,especially over both knees and shoulders) and Denies neck pain Skin/Breast Denies breast pain, Denies breast mass, Denies change in pigmentation, Denies lesions, Denies rash and Denies unusual bruising Neuro Denies dizziness, Denies headache(s) and Denies paresthesias Psych Denies anxiety and Denies depression Endo Denies fatigue and Denies palpitations Aries/Lymph Denies easy bruising Aller/Immun Denies itchy eyes and Denies wheezing Physical exam (Primary Care) Vital Signs: Last Vital Signs Pulse 71 08/18/24 09:52 BP 124/78 08/18/24 09:52 Pulse Ox 99 08/18/24 09:52 Oxygen Delivery Method Room Air 08/18/24 09:52 BMI result Body Mass Index 24.2 Tobacco/Smoking Status: Tobacco use Status Tobacco use date assessed 08/18/24 08/18/24 09:58 Patient Tobacco Use Status Never used Tobacco 08/18/24 09:58 e-Cigarette/Vaping Use Never Used 08/18/24 09:58 PHQ-9: PHQ-9 Score PHQ-9: Total score 0 08/18/24 10:37 Depression Screening Interpretation: Negative Thrive Assessment: Date of Thrive Assessment Date Thrive assessed 08/18/24 08/18/24 09:58 Currently or been in a relationship where the following occur: No concerns reported Const General: no acute distress, alert and awake Orientation/consciousness: patient oriented x3 [facility] Head: Yes normocephalic and Yes atraumatic Ears: external ears normal, TM's normal bilaterally and EAC's normal General nose exam: No nasal discharge present Face and sinus: Yes normal facial exam and Yes sinuses nontender Teeth and gingiva: dentition normal Throat: Yes posterior oropharynx normal and Yes tonsils normal (no TP congestion) Eyes Eyelids: Yes eyelids normal Conjunctivae: conjunctivae normal Pupils: Equal, round and reactive pupils present EOM: EOMs intact bilaterally Neck Neck: Yes supple and No lymphadenopathy Thyroid: Thyroid normal Resp Auscultation: clear to auscultation bilaterally, no rales and no wheezes Cardio Rate: regular rate Rhythm: regular rhythm Heart sounds: no murmurs GI Palpation (GI): Soft to palpation, nontender and No hepatosplenomegaly present Auscultation: normal bowel sounds General: Yes no CVA tenderness Back/Spine/Pelvis Back: no CVA tenderness Thoracic/Lumbar Spine: thoracic and lumbar spine normal to inspection Skin Lesions: no lesions Rashes: no rashes Neuro General: patient oriented x3, moves all extremities, no focal motor deficits and CN's II-XI intact bilaterally Cranial nerves: Yes Equal, round and reactive pupils present Cognition (Neuro): normal cognition Gait exam (Neuro): Normal gait present Extrem General: Yes no clubbing, cyanosis or edema Right upper extremity: shoulder/upper arm Details: tenderness Location: of the A-C joint Left upper extremity: shoulder/upper arm Details: tenderness Location: of the A- C joint and normal ROM Right lower extremity: knee Details: tenderness Location: of the medial joint line and of the lateral joint line and normal ROM Left lower extremity: knee Details: tenderness Location: of the medial joint line and of the lateral joint line and normal ROM Results Reviewed Results Reviewed: Laboratory Tests 08/13/24 09:52 WBC 5.9 Hgb 14.0 Hct 41.8 Plt Count 182 Sodium 144 Potassium 3.3 Creatinine 0.82 Estimated GFR > 60 Fasting Glucose 98 Calcium 9.9 AST 19 ALT 15 Triglycerides 47 Cholesterol 175 LDL Cholesterol, Calc 106 H HDL Cholesterol 60 25-OH Vitamin D Total 119.7 TSH 0.90 PTH Intact 77.7 H Ur Specific [place] 1.020 Urine Protein Trace Urine Glucose (UA) Negative Urine Blood Negative Urine Nitrite Negative Ur Leukocyte Esterase Large (3+) H Urine WBC >50 H Coding Level of Care Code Est Pt Level 4 (65336) Complex EM visit Add On G2211 Diagnoses Annual physical exam Z00.00 Benign essential hypertension I10 Arthritis of both shoulders M19.011; M19.012 Laterality: bilateral Hypercalcemia E83.52 Vitamin D deficiency E55.9 GERD without esophagitis K21.9 Allergic rhinitis, unspecified seasonality, unspecified trigger J30.9 Allergic rhinitis trigger: unspecified Allergic rhinitis seasonality: unspecified Overweight (BMI 25.0-29.9) E66.3 Osteoporosis screening Z13.820 Additional Codes PHQ-9 - 33110 - PHQ-9 Billing: Yes ([id number]) Assessment & Plan Assessment & Plan (1) Annual physical exam: Code(s): Z00.00 - Encounter for general adult medical examination without abnormal findings Category: Medical Plan: Results of her labs done a few days ago reviewed and discussed with patient She is up-to-date with her colon cancer screening as well as her annual mammography She no longer keeps up with her gynecology exam and pap smear She has never had osteoporosis screening done in the past - BMD will be ordered for her today to start (2) Benign essential hypertension: Code(s): I10 - Essential (primary) hypertension Category: Medical Plan: Reinforced low sodium diet - goal is systolic BP of at least 130 to 140 mm or less Continue Enalapril 2.5 mg QD and HCTZ 25 mg QD (3) Arthritis of shoulder: Comment: (+) degenerative joint disease of shoulders bilaterally Code(s): M19.019 - Primary osteoarthritis, unspecified shoulder Category: Medical Qualifiers: Laterality: bilateral Qualified Code(s): M19.011 - Primary osteoarthritis, right shoulder; M19.012 - Primary osteoarthritis, left shoulder Plan: MRI of the shoulder done on 05/12/2019 showed (+) complex tear of the supraspinatus tendon, degenerative tear of the glenoid labrum and moderate glenohumeral and acromioclavicular osteoarthritis X-rays of the left shoulder done back in July 2022 revealed degenerative osteoarthritis of the glenohumeral and acromioclavicular joints Patient remains adamant about not wanting any surgery or joint replacement done on her shoulders or knees States that her shoulder and knee pains have improved a lot with cortisone injections from orthopedics and they have been mostly manageable so far She will continue to follow up with orthopedics as scheduled (4) Hypercalcemia: Code(s): E83.52 - Hypercalcemia Category: Medical Plan: Patient has been noted consistently to have mild hypercalcemia on her recent labs over the past couple of years but her serum calcium level was normal at 9.9 on her most recent labs from a few days ago PTH level done back in October 2023 revealed a mildly elevated PTH level of 91.4; this has decreased to 77.7 on her recent labs done a few days ago Her Vitamin D level is normal Will continue to monitor this closely for now (5) Vitamin D deficiency: Code(s): E55.9 - Vitamin D deficiency, unspecified Category: Medical Plan: Corrected - continue Vitamin D3 1000 units QD (6) GERD without esophagitis: Code(s): K21.9 - Gastro-esophageal reflux disease without esophagitis Category: Medical Plan: Dietary restrictions reinforced Continue Dexilant 60 mg QD (7) Allergic rhinitis: Code(s): J30.9 - Allergic rhinitis, unspecified Category: Medical Qualifiers: Allergic rhinitis trigger: unspecified Allergic rhinitis seasonality: unspecified Qualified Code(s): J30.9 - Allergic rhinitis, unspecified Plan: Continue Loratadine 10 mg QD PRN (8) Overweight (BMI 25.0-29.9): Code(s): E66.3 - Overweight Category: Medical Plan: Reinforced diet/exercise as tolerated/lose weight (9) Osteoporosis screening: Code(s): Z13.820 - Encounter for screening for osteoporosis Category: Medical Plan: Will send her again for BMD for osteoporosis screening Plan Follow up in 4 months Orders: Orders Complete Blood Count Auto Diff 4 Months D64.9 - Anemia, unspecified Vitamin D 25-OH Total 4 Months E55.9 - Vitamin D deficiency, unspecified XR DEXA axial skeleton Today Z78.0 - Asymptomatic menopausal state Comprehensive [place]. Panel Fast 4 Months E78.00 - Pure hypercholesterolemia, unspecified Lipid Panel 4 Months E78.00 - Pure hypercholesterolemia, unspecified UA CC w/rflx Micro + Cult 4 Months R30.0 - Dysuria TSH reflex Free T4 4 Months E78.00 - Pure hypercholesterolemia, unspecified
== END 2024-08-18 10:40 | disposition home or self-care (01) ==
PROVIDERS: PCP Internal Medicine; Visit Provider Internal Medicine
DX: Z00.00 Encounter for general adult medical examination without abnormal findings (principal); I10 Essential (primary) hypertension; M19.011 Primary osteoarthritis, right shoulder; M19.012 Primary osteoarthritis, left shoulder; E83.52 Hypercalcemia; E55.9 Vitamin D deficiency, unspecified; K21.9 Gastro-esophageal reflux disease without esophagitis; J30.9 Allergic rhinitis, unspecified; E66.3 Overweight; Z13.820 Encounter for screening for osteoporosis

== ENCOUNTER → 2024-08-18 09:49 | Outpatient (BNVA) | payer OTHER, SELFPAY | PROVIDERS: PCP Internal Medicine; Visit Provider Internal Medicine | DX: Z00.00 Encounter for general adult medical examination without abnormal findings (principal); I10 Essential (primary) hypertension; M19.011 Primary osteoarthritis, right shoulder; M19.012 Primary osteoarthritis, left shoulder; E55.9 Vitamin D deficiency, unspecified; K21.9 Gastro-esophageal reflux disease without esophagitis; J30.9 Allergic rhinitis, unspecified; E66.3 Overweight | CPT/HCPCS: 96127; 99397 ==

== ENCOUNTER → 2024-10-21 07:43 | Outpatient (REF) | payer OTHER, SELFPAY ==
--- NOTE | ~2024-10-21 | MM_ITS ---
EXAMINATION: DXA BONE DENSITY AXIAL HISTORY: Estrogen deficiency TECHNIQUE: [employer] Dual energy absorptiometry (DEXA) of the lumbar spine, total left hip, and femoral neck was performed. COMPARISON: There are no prior studies for comparison. FINDINGS: The bone mineral density of the lumbar spine is 0.858 with a T-score of -2.7, and a Z-score of -0.7. The bone mineral density of the left total hip is 0.799 with a T-score of -1.7, and a Z-score of 0.2. The bone mineral density of the left femoral neck is 0.688 with a T-score of -2.5, and a Z-score of -0.5. FRACTURE RISK: The FRAX index suggests a risk of major osteoporotic fracture of 20.2%, and of hip fracture 13.3%. MM/XR DEXA axial skeleton IMPRESSION: Based on bone mineral density, and according to World Health Organization (WHO) criteria, the diagnosis is consistent with osteoporosis. All bone density values are in grams per centimeter squared (g/cm2). Statistically, 68% of repeat scans fall within 1 SD (+/- 0.010 g/cm2 for AP spine L1-L4) and 1 SD (+/- 0.012 g/cm2 for femur total) FRAX is a trademark of the [employer]'s [place] [facility] [employer], a World Health Organization (WHO) Collaborating Center. Electronically signed by: Charli Ventura MD 10/22/2024 07:59 AM EST
== END | disposition home or self-care (01) ==
LOC: HO.MAMMO 07:43
PROVIDERS: PCP Internal Medicine; Visit Provider Internal Medicine
DX: Z13.820 Encounter for screening for osteoporosis (principal); Z78.0 Asymptomatic menopausal state

== ENCOUNTER → 2024-10-21 08:15 | Outpatient (BNV) | payer OTHER, SELFPAY | PROVIDERS: PCP Internal Medicine; Visit Provider Radiology Diagnostic Radiology | DX: E28.39 Other primary ovarian failure (principal) | CPT/HCPCS: 77080 ==

== ENCOUNTER 2024-12-17 13:36 | Outpatient (AMB) | payer OTHER, SELFPAY ==
[2024-12-17 13:38] VITALS: BP 110/70; PULSE 74; O2SAT 96; BMI 25.1
--- NOTE | 2024-12-17 13:38 | MHC.PC.OV ---
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 Required: No Accompanied by: Self / Same As Patient Allergies No Known Allergies [No Known Allergies*] Allergy (Verified 12/17/24 14:14) Medication List - Last Reconciled 12/17/24 by Denys Gonsalves MD acetaminophen (Tylenol Extra Strength) 500 mg PO Q6H PRN cholecalciferol (vitamin D3) 25 mcg PO DAILY 90 days clotrimazole 1% (Lotrimin AF (clotrimazole)) 1 appl topical BID 2 weeks dexlansoprazole (Dexilant) 60 mg PO DAILY 90 days enalapril maleate 2.5 mg PO DAILY [HANDHELD SHOWER HEAD As directed] hydrochlorothiazide 25 mg PO DAILY loratadine 10 mg PO DAILY PRN 90 days naproxen 500 mg PO BID PRN 10 days peg 3350-electrolytes 236-22.74-6.74 -5.86 gram (Golytely) 240 mL PO Q10M 1 day [QUAD CANE As directed] [SHOWER CHAIR As directed] Tobacco use date assessed: 12/17/24 Fall risk assessment: No Falls in past year Last assessed Fall Risk: 12/17/24 Dental Screening Dental Screen Date: 12/17/24 Did you have a dental visit in the last 12 months?: No Did you have a dental problem in the last 6 months where you did not have access to dental care?: No Was dental information given to patient?: Patient has dentist HPI [facility] f[facility] HPI Details Patient comes in today for her follow-up visit States that she has been experiencing increased pain over her left hip lately - she denies any recent injury or trauma to her left hip She still has chronic bilateral shoulder pain and knee pain and takes Tylenol or Naproxen PRN for some relief She denies any headaches or dizziness Denies any chest pains, no increased shortness of breath No nausea/vomiting, no abdominal pain No change in bowel habits noted Needs her Enalapril Rx refilled She was not able to get her follow-up labs done prior to her visit today - states that she will try to get these done first thing tomorrow morning Adds that she had her bone density test done a couple months ago and would like to know how her test came out [facility] Medical History (Updated 12/19/24 @ 07:51 by Denys Gonsalves MD) Osteoporosis Cataracts, bilateral Allergic rhinitis Vitamin D deficiency Overweight (BMI 25.0-29.9) Degenerative joint disease of right shoulder GERD without esophagitis Benign essential hypertension Surgical History H/O local excision of skin lesion History of colonoscopy History of cholecystectomy Family History Father CVD (cardiovascular disease) Mother No problems noted. Daughter In good health Sister In good health Sister In good health Sister In good health Brother In good health Social History Housing: Apartment Alcohol intake: never Patient Tobacco Use Status: Never used Tobacco e-Cigarette/Vaping Use: Never Used Second Hand Smoke Exposure: Yes service: No Current occupational status: retired Cognitive needs: No Hearing needs: No Vision needs: Yes (Glasses) Questionnaire PHQ-9 Over the last 2 weeks, how often have you been bothered by any of the following problems? 1. Little interest or pleasure in doing things: not at all 2. Feeling down, depressed, or hopeless: not at all 3. Trouble falling or staying asleep, or sleeping too much: not at all 4. Feeling tired or having little energy: not at all 5. Poor appetite or overeating: not at all 6. Feeling bad about yourself - or that you are a failure or have let yourself or your family down: not at all 7. Trouble concentrating on things, such as reading the newspaper or watching television: not at all 8. Moving or speaking so slowly that other people could have noticed. Or the opposite - being so fidgety or restless that you have been moving around a lot more than usual: not at all 9. Thoughts that you would be better off or of hurting yourself in some way: not at all Total score: 0 Depression Screening Interpretation: Negative Depression Screening Done: Yes 56212 - PHQ-9 Billing: Yes Source: Developed by Nupur Trevino Kurt Kroenke and colleagues, with an educational jonathon from [employer]. Thrive Questionnaire Date Thrive assessed: 12/17/24 I am a: Patient What is your living situation today?: I have a steady place to live Within the past 12 months, did the food you bought not last and you didn't have the money to get more?: Never true Within the past 12 months, did you worry whether your food would run out before you got money to buy more?: Never true Do you have trouble paying for medicines?: No Do you have trouble getting transportation to medical appointments?: No Do you have trouble paying your heating and electricity bill?: No Do you have trouble taking care of your child, family member or friend?: No Do you have trouble with day-to-day activities such as bathing, preparing meals, shopping, managing finances, etc.?: No Are you currently unemployed and looking for a job?: No Are you interested in more education?: No Please select the resources that you would like help with: None Currently or been in a relationship where the following occur: No concerns reported THRIVE Score: 0 AUDIT C Alcohol Use Questionnaire (AUDIT-C) 1. How often do you have a drink containing alcohol?: Never 3. How often do you have six or more drinks on one occasion?: Never Total Score: 0 Score Reviewed/Action Taken: Yes MARY-7 AMB Questionnaire MARY-7 Date MARY - 7 assessed: 12/17/24 Feeling nervous, anxious, or on edge: 0 = Not at all Not being able to stop or control worryin = Not at all Worrying too much about different things: 0 = Not at all Trouble relaxin = Not at all Being so restless that it is hard to sit still: 0 = Not at all Becoming easily annoyed or irritable: 0 = Not at all Feeling afraid as if something awful might happen: 0 = Not at all Total MARY-7 score (0-4 normal; 5-9 mild; 10-14 moderate; 15-21 severe): 0 Source: Developed by Nupur Trevino Kurt Kroenke and colleagues, with an educational jonathon from [employer]. Review of Systems Const Denies chills, Denies fatigue, Denies fever(s) and Denies headache(s) ENT Denies dysphagia, Denies dizziness, Denies otalgia, Denies headache(s), Denies neck pain, Denies odynophagia and Denies sore throat Card Denies chest pain, Denies irregular heart rhythm, Denies palpitations and Denies dyspnea Resp Denies chest congestion, Denies cough and Denies dyspnea GI Denies abdominal pain, Denies constipation, Denies dysphagia, Denies heartburn, Denies diarrhea, Denies nausea, Denies odynophagia and Denies vomiting Denies urinary frequency, Denies dysuria, Denies urinary incontinence and Denies urinary urgency Musc Denies back pain, Reports arthralgias (involving multiple joints, especially over both knees and shoulders; L hip) and Denies neck pain Skin/Breast Denies rash Neuro Denies dizziness, Denies headache(s) and Denies paresthesias Psych Denies anxiety and Denies depression Endo Denies fatigue and Denies palpitations Aries/Lymph Denies easy bruising Physical exam (Primary Care) Vital Signs: Last Vital Signs Pulse 74 12/17/24 13:38 BP 110/70 12/17/24 13:38 Pulse Ox 96 12/17/24 13:38 Oxygen Delivery Method Room Air 12/17/24 13:38 BMI result Body Mass Index 25.1 Tobacco/Smoking Status: Tobacco use Status Tobacco use date assessed 12/17/24 12/17/24 13:46 Patient Tobacco Use Status Never used Tobacco 12/17/24 13:46 e-Cigarette/Vaping Use Never Used 12/17/24 13:46 PHQ-9: PHQ-9 Score PHQ-9: Total score 0 12/17/24 14:15 Depression Screening Interpretation: Negative Thrive Assessment: Date of Thrive Assessment Date Thrive assessed 12/17/24 12/17/24 13:46 Currently or been in a relationship where the following occur: No concerns reported Const General: no acute distress and alert HENMT Ears: TM's normal bilaterally and EAC's normal Throat: Yes posterior oropharynx normal and Yes tonsils normal (no TP congestion) Neck Neck: Yes supple and No lymphadenopathy Thyroid: Thyroid normal Resp Auscultation: clear to auscultation bilaterally, no rales and no wheezes Cardio Rate: regular rate Rhythm: regular rhythm Heart sounds: no murmurs GI Palpation (GI): Soft to palpation and nontender Auscultation: normal bowel sounds General: Yes no CVA tenderness Back/Spine/Pelvis Back: no CVA tenderness Skin Rashes: no rashes Extrem General: Yes no clubbing, cyanosis or edema Right upper extremity: shoulder/upper arm Details: tenderness Location: of the A-C joint Left upper extremity: shoulder/upper arm Details: tenderness Location: of the A-C joint and normal ROM Right lower extremity: knee Details: tenderness Location: of the medial joint line and of the lateral joint line and normal ROM Left lower extremity: hip/thigh Details: tenderness Location: of the hip and knee Details: tenderness Location: of the medial joint line and of the lateral joint line and normal ROM Coding Level of Care Code Est Pt Level 4 (27421) Complex EM visit Add On G2211 Diagnoses Benign essential hypertension I10 Arthritis of both shoulders M19.011; M19.012 Laterality: bilateral Bilateral primary osteoarthritis of knee M17.0 Age-related osteoporosis without current pathological fracture M81.0 Osteoporosis type: age-related Presence of current pathological fracture: without current pathological fracture Left hip pain M25.552 Hypercalcemia E83.52 Vitamin D deficiency E55.9 GERD without esophagitis K21.9 Allergic rhinitis, unspecified seasonality, unspecified trigger J30.9 Allergic rhinitis trigger: unspecified Allergic rhinitis seasonality: unspecified Overweight (BMI 25.0-29.9) E66.3 Additional Codes PHQ-9 - 47975 - PHQ-9 Billing: Yes ([id number]) Assessment & Plan Assessment & Plan (1) Benign essential hypertension: Code(s): I10 - Essential (primary) hypertension Category: Medical Plan: Reinforced low sodium diet - goal is systolic BP of at least 130 to 140 mm or less Continue Enalapril 2.5 mg QD (Rx refilled) and HCTZ 25 mg QD (2) Arthritis of shoulder: Comment: (+) degenerative joint disease of shoulders bilaterally Code(s): M19.019 - Primary osteoarthritis, unspecified shoulder Category: Medical Qualifiers: Laterality: bilateral Qualified Code(s): M19.011 - Primary osteoarthritis, right shoulder; M19.012 - Primary osteoarthritis, left shoulder Plan: MRI of the shoulder done on 05/12/2019 showed (+) complex tear of the supraspinatus tendon, degenerative tear of the glenoid labrum and moderate glenohumeral and acromioclavicular osteoarthritis X-rays of the left shoulder done back in July 2022 revealed degenerative osteoarthritis of the glenohumeral and acromioclavicular joints Patient remains adamant about not wanting any surgery or joint replacement done on her shoulders or knees States that her shoulder and knee pains have improved a lot with cortisone injections from orthopedics and they have been mostly manageable so far She will continue to follow up with orthopedics as scheduled (3) Bilateral primary osteoarthritis of knee: Code(s): M17.0 - Bilateral primary osteoarthritis of knee Category: Medical Plan: Patient remains unwilling to undergo any surgery or joint replacement on her shoulders or knees States that her shoulder and knee pains have improved a lot with cortisone injections from orthopedics and they have been mostly manageable lately Follow up with orthopedics as scheduled (4) Osteoporosis: Code(s): M81.0 - Age-related osteoporosis without current pathological fracture Category: Medical Qualifiers: Osteoporosis type: age-related Presence of current pathological fracture: without current pathological fracture Qualified Code(s): M81.0 - Age-related osteoporosis without current pathological fracture Plan: Her BMD done in October 2024 revealed (+) osteoporosis, with a T-score of -2.7 in the lumbar spine Will send patient for urine NTx for further evaluation and if this comes back abnormal, we will consider starting patient on Tx for her osteoporosis Fall precautions reinforced Have advised patient to make sure she takes her oral calcium and vitamin-D supplements daily and to try to get some regular exercise and increase her physical activity as tolerated (5) Left hip pain: Code(s): M25.552 - Pain in left hip Category: Medical Plan: Will send patient for x-rays of the left hip for further evaluation (6) Hypercalcemia: Code(s): E83.52 - Hypercalcemia Category: Medical Plan: Patient has been noted consistently to have mild hypercalcemia on her recent labs over the past couple of years but her serum calcium level was normal at 9.9 on her most recent labs from a few months ago PTH level done back in October 2023 revealed a mildly elevated PTH level of 91.4; this has decreased to 77.7 on her recent labs done a few months ago Her Vitamin D level is normal Will continue to monitor this closely for now (7) Vitamin D deficiency: Code(s): E55.9 - Vitamin D deficiency, unspecified Category: Medical Plan: Corrected - continue Vitamin D3 1000 units QD (8) GERD without esophagitis: Code(s): K21.9 - Gastro-esophageal reflux disease without esophagitis Category: Medical Plan: Dietary restrictions reinforced Continue Dexilant 60 mg QD (9) Allergic rhinitis: Code(s): J30.9 - Allergic rhinitis, unspecified Category: Medical Qualifiers: Allergic rhinitis trigger: unspecified Allergic rhinitis seasonality: unspecified Qualified Code(s): J30.9 - Allergic rhinitis, unspecified Plan: Continue Loratadine 10 mg QD PRN (10) Overweight (BMI 25.0-29.9): Code(s): E66.3 - Overweight Category: Medical Plan: Reinforced diet/exercise as tolerated/lose weight Plan Follow up in 4 months Orders: Orders Collagen Crosslinks NTX 12/18/24 M81.0 - Age-related osteoporosis without current pathological fracture XR hip LT min 2V 12/18/24 M25.552 - Pain in left hip Medications: Refilled enalapril maleate 2.5 mg PO DAILY 90 tabs 3RF
--- OUTSIDE RECORDS SUMMARY | 2024-12-17 15:27 | XMS_ITS ---
Author Name Pranay CEJAN,[employer]CCUPATIONAL THER[employer],FAVIAN P,BUSINESS CONSULTANT, Berenice Address [address] [place] [id number] Phone [phone] [facility] Care Team Providers Care Environmental Tech Name Role Phone Pranay Berenice Unavailable [phone] Unavailable Unavailable Unavailable Reason for Referral Not Available Allergies, adverse reactions, alerts No known allergies History of medication use Medication Class Instructions Start Date End Date Enalapril Maleate 2.5 mg Tab TAKE 1 TABL ET BY MOUTH EVERY DAY 2023-01-10 No Data Available Loratadine 10 mg Tab TAKE 1 TABLET BY MO UTH EVERY DAY NEEDED FOR ALLERGIES 2023-04-28 No Data Available hydroCHLOROthiazide 25 mg Tab TAKE 1 TAB LET BY MOUTH EVERY DAY 2023-05-19 No Data Available Dexlansoprazole 60 mg Cap delayed rel 1 cap by mouth PRN 2023-02-12 No Data Available Tylenol Extra Strength 500 m g Tab 2 tablets orally one time TID PRN pain 2023-09-11 No Data Available Albuterol Sulfate (2.5 mg/3M L) 0.083% Nebulization Solution Inhalation 3 ml via nebulizer every 4-6 hours as needed for SOB, wheezing 2023-10-28 2024-11-11 Doxycycline Hyclate 100 mg Tab Take 1 ta blet PO twice daily for 7 days. 2023-10-28 2024-11-11 Doxycycline Hyclate 100 mg Tab Take 1 ta blet PO twice daily for 7 days. 2023-10-28 2024-11-11 Ketorolac Tromethamine 0.5 % Solution PUT 1 DROP INTO THE AFFECTED EYE 3 TIMES DAILY. START 2 DAYS PRIOR TO SURGERY. CONTINUE DIRECTED 2024-08-11 2024-11-11 Brimonidine Tartrate 0.2 % Solution INSTILL 1 DROP RIGHT EYE 3 TIMES A DAY 2024-09-18 2024-11-11 Problem List Problem Status Onset Date Resolved Date Acute bacterial bronchitis Resolved 2023-10-28 2 GERD (gastroesophageal reflux disease) Active 06-09-28 N/A Essential hypertension Active 2023-09-11 N/A CKD (chronic kidney disease) stage 2, GFR 60-89 ml/min Active 2024-11-11 N/A Other problems related to la dical facilities and other health care Active 2024-11-11 N/A Osteoarthritis Active 2023-09-11 N/A Encounters Encounters Type Facility Date of Service Diagnosis/Co mplaint New patient,40-59min; chronic exacerbation, 2 stable chronic or 1 acute illness add add modifier 95 for video (do not use for phone, instead use [id number]) [facility]23 Essential (primary) hypertensionGastro-esophageal reflux disease without esophagitisPersonal history of (healed) traumatic fractureUnspecified osteoarthritis, unspecified siteUnspecified cataract New patient,40-59min; chronic exacerbation, 2 stable chronic or 1 acute illness add add modifier 95 for video (do not use for phone, instead use 32179-70) [facility] New patient,40-59min; chronic exacerbation, 2 stable chronic or 1 acute illness add add modifier 95 for video (do not use for phone, instead use 99301-93) [facility] New patient,40-59min; chronic exacerbation, 2 stable chronic or 1 acute illness add add modifier 95 for video (do not use for phone, instead use 45758-34) [facility] New patient,40-59min; chronic exacerbation, 2 stable chronic or 1 acute illness add add modifier 95 for video (do not use for phone, instead use 84237-51) [facility] New patient,40-59min; chronic exacerbation, 2 stable chronic or 1 acute illness add add modifier 95 for video (do not use for phone, instead use 02076-14) [facility] New patient,40-59min; chronic exacerbation, 2 stable chronic or 1 acute illness add add modifier 95 for video (do not use for phone, instead use 41544-45) [facility]20[place] Estab. patient 30-39min; chronic exacerbation, 2 stable chronic or 1 acute illness add add modifier 95 for video, (do not use for phone, instead use 04589-04) [facility]2023 Essential (primary) hypertensionGastro-esophageal reflux disease without esophagitisPersonal history of (healed) traumatic fractureOther problems related to medical facilities and other health careUnspecified osteoarthritis, unspecified siteUnspecified cataractAcute bronchitis due to other specified organismsOth bacterial agents as the cause of diseases classd elswhr Estab. patient 30-39min; chronic exacerbation, 2 stable chronic or 1 acute illness add add modifier 95 for video, (do not use for phone, instead use 71683-79) [facility] Estab. patient 30-39min; chronic exacerbation, 2 stable chronic or 1 acute illness add add modifier 95 for video, (do not use for phone, instead use 99436-25) [facility] Estab. patient 30-39min; chronic exacerbation, 2 stable chronic or 1 acute illness add add modifier 95 for video, (do not use for phone, instead use 01788-43) [facility] Estab. patient 30-39min; chronic exacerbation, 2 stable chronic or 1 acute illness add add modifier 95 for video, (do not use for phone, instead use 76791-66) [facility] Estab. patient 30-39min; chronic exacerbation, 2 stable chronic or 1 acute illness add add modifier 95 for video, (do not use for phone, instead use 51501-14) [facility] Estab. patient 30-39min; chronic exacerbation, 2 stable chronic or 1 acute illness add add modifier 95 for video, (do not use for phone, instead use 19419-05) [facility] Estab. patient 30-39min; chronic exacerbation, 2 stable chronic or 1 acute illness add add modifier 95 for video, (do not use for phone, instead use 10412-10) [facility], ([place]) 10/28/2023 Estab. patient 30-39min; chronic exacerbation, 2 stable chronic or 1 acute illness add add modifier 95 for video, (do not use for phone, instead use 96907-67) [facility] Estab. patient 30-39min; chronic exacerbation, 2 stable chronic or 1 acute illness add add modifier 95 for video, (do not use for phone, instead use 08976-06) [facility] Estab. patient 30-39min; chronic exacerbation, 2 stable chronic or 1 acute illness add add modifier 95 for video, (do not use for phone, instead use 54357-23) [facility]2023 No Data Available [facility]2024 Anxiety disorder, unspecifiedOther problems related to medical facilities and other health care No Data Available [facility]20[place] No Data Available [facility] Estab. patient 20-29min; 1 stable chronic or 2 minor; add add modifier 95 for video, modifier 93 for phone [facility]2024 Hypertensive chronic kidney disease w stg 1-4/unsp chr kdnyChronic kidney disease, stage 2 (mild)Gastro-esophageal reflux disease without esophagitisUnspecified osteoarthritis, unspecified siteOther problems related to medical facilities and other health care Estab. patient 20-29min; 1 stable chronic or 2 minor; add add modifier 95 for video, modifier 93 for phone [facility]20[place] Estab. patient 20-29min; 1 stable chronic or 2 minor; add add modifier 95 for video, modifier 93 for phone [facility]20[place] Estab. patient 20-29min; 1 stable chronic or 2 minor; add add modifier 95 for video, modifier 93 for phone [facility]20[place] Estab. patient 20-29min; 1 stable chronic or 2 minor; add add modifier 95 for video, modifier 93 for phone [facility] Estab. patient 20-29min; 1 stable chronic or 2 minor; add add modifier 95 for video, modifier 93 for phone [facility] Estab. patient 20-29min; 1 stable chronic or 2 minor; add add modifier 95 for video, modifier 93 for phone [facility]20[place] Estab. patient 20-29min; 1 stable chronic or 2 minor; add add modifier 95 for video, modifier 93 for phone [facility]2024 Vital Signs Date of Collection Vitals 2023-09-11 06:59:25 Height - 154.94 cmWe ight - 63.05 kgBody Mass Index (BMI) - 26.26 kg/m2 2023-10-28 07:08:07 Weight - 63.5 kgBody Mass Index (BMI) - 26.45 kg/m2BP Diastolic - 68.0 mm[Hg]BP Systolic - 127.0 mm[Hg]Pain Scale - 0.0 {score} 2024-06-16 09:54:03 Pain Scale - 0.0 {sc ore} 2024-11-11 13:15:12 Height - 154.94 cmWe ight - 58.06 kgBody Mass Index (BMI) - 24.19 kg/m2BP Diastolic - 70.0 mm[Hg]BP Systolic - 128.0 mm[Hg]Pain Scale - 7.0 {score} Social History Social History Social History Observation Description Effec tive Time Current Smoking Status Never smoker 4 Sex Female Gender identity Woman History of Procedures Procedures Service Procedure code Service date Servicing provider Phone# New patient,40-59min; chronic exacerbation, 2 stable chronic or 1 acute illness add add modifier 95 for video (do not use for phone, instead use 10489-17) 36370 2023-09-11 No Data Available No Data Availa ble Pain Assessment - NO pain present (1126F) 1126F 2023-09-11 No Data Available No Data A vailable Medication List Documented (1159F) 1159F 2023-09-11 No Data Available No Data Karissa ilable Medication Review by prescribing provider or pharmacist documented (1160F) 1160F 2023-09-11 No Data Available No Data Karissa ilable BMI obtained (3008F) 3008F 2023-09-11 No Data Availab le No Data Available Pain Assessment - Pain Documented on a Pain Scale (1125F) 1125F 2023-09-11 No Data Available No Data Karissa ilable Functional Status Assessed (1170F) 1170F 2023-09-11 No Data Available No Data Avail able Estab. patient 30-39min; chronic exacerbation, 2 stable chronic or 1 acute illness add add modifier 95 for video, (do not use for phone, instead use 07573-52) [address]2621 2023-10-28 No Data Available No Data Availa ble Medication List Documented (1159F) 1159F 2023-10-28 No Data Available No Data Karissa ilable Medication Review by prescribing provider or pharmacist documented (1160F) 1160F 2023-10-28 No Data Available No Data Karissa ilable Pain Assessment - NO pain present (1126F) 1126F 2023-10-28 No Data Available No Data A vailable BMI obtained (3008F) 3008F 2023-10-28 No Data Availab le No Data Available Advance Care Directive Advance care planning discussion documented in the medical record (1158F) 1158F 2023-10-28 No Data Available No Data Availa ble Advance care planning discussed and documented ? advance care plan or surrogate decision-maker was documented in the medical record. (1123F) 1123F 2023-10-28 No Data Available No Data Availa ble SBP < 130 (3074F) 3074F 2023-10-28 No Data Available No Data Available DBP <80 (3078F) 3078F 2023-10-28 No Data Available No Data Available Pain Assessment - Pain Documented on a Pain Scale (1125F) 1125F 2023-10-28 No Data Available No Data Karissa ilable Functional Status Assessed (1170F) 1170F 2023-10-28 No Data Available No Data Avail able No Data Available 95596 2024-06-16 No Data Available No Data Available Pain Assessment - NO pain present (1126F) 1126F 2024-06-16 No Data Available No Data A vailable Medication List Documented (1159F) 1159F 2024-06-16 No Data Available No Data Karissa ilable Estab. patient 20-29min; 1 stable chronic or 2 minor; add add modifier 95 for video, modifier 93 for phone [id number] 2024-11-11 No Data Available No Data Availa ble Medication List Documented (1159F) 1159F 2024-11-11 No Data Available No Data Karissa ilable Medication Review by prescribing provider or pharmacist documented (1160F) 1160F 2024-11-11 No Data Available No Data Karissa ilable Functional Status Assessed (1170F) 1170F 2024-11-11 No Data Available No Data Avail able Advance Care Directive Advance care planning discussion documented in the medical record (1158F) 1158F 2024-11-11 No Data Available No Data Availa ble Advance care planning discussed and documented ? advance care plan or surrogate decision-maker was documented in the medical record. (1123F) 1123F 2024-11-11 No Data Available No Data Availa ble Pain Assessment - Pain Documented on a Pain Scale (1125F) 1125F 2024-11-11 No Data Available No Data Karissa ilable BMI obtained (3008F) 3008F 2024-11-11 No Data Availab le No Data Available Functional Status Functional Category Effective Dates Cognition Status: Oriented to Person, Pl elijah and Time 2024-11-11 ADL: Bathing Needs Assistanc e , Dressing Needs Assistance , Eating Independent , Ambulation Independent , Transferring Independent and Toileting Independent 2024-11-11 IADL: Medication Independent , Meal Prep Independent , Shopping Independent , Shopping Needs Assistance , Driving or Public Transport Needs Assistance , Housework Needs Assistance , Finances Independent 2024-11-11 How many falls within the last 6 months? None 2024-11-11 Near falls within the last 6 months? Non e 2024-11-11 Do you feel unsteady on your feet? No 20 09-11-26 Do you worry about falling? No 2024-10-17 7 DME used with ambulation: None 2024-10-17 7 Social Supports - # of Inter actions with Friends/Family in a typical week: family 2024-11-11 Mental Status Status Date AOx3 2023-09-11 Assessments Date of Service Assessments 2023-09-11 06:59:25 Essential hypertensi onGERD (gastroesophageal reflux disease)History of vertebral fractureOsteoarthritisCataract 2023-10-28 07:08:07 Other problems relat ed to medical facilities and other health careEssential hypertensionGERD (gastroesophageal reflux disease)History of vertebral fractureOsteoarthritisCataractAcute bacterial bronchitisOther problems related to medical facilities and other health care 2024-06-16 09:54:03 AnxietyOther problem s related to medical facilities and other health care 2024-11-11 13:15:12 Essential hypertensi onGERD (gastroesophageal reflux disease)OsteoarthritisCKD (chronic kidney disease) stage 2, GFR 60-89 ml/minOther problems related to medical facilities and other health care Plan of Care Date of Service Plans 2023-09-11 06:59:25 Pain Assessment - Pa in Documented (1125F)Medication Review by prescribing provider or pharmacist documented (1160F)Medication List Documented (1159F)Functional Status Assessed (1170F)Advance Care Directive Advance care planning discussion documented in the medical record (1158F)BMI obtained (3008F)Televideo new patient,40-59min; chronic exacerbation, 2 stable chronic or 1 acute illness add modifier 95Advance care planning discussed and documented ? advance care plan or surrogate decision-maker was documented in the medical record. (1123F)Advance care planning discussed and documented in the medical record ? beneficiary/patient did not wish to or was unable to provide an advance care plan or name a surrogate decision-maker. (1124F)Continue to see PCP. 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 2023-10-28 07:08:07 Medication Review by prescribing provider or pharmacist documented (1160F)Medication List Documented (1159F)Functional Status Assessed (1170F)Advance Care Directive Advance care planning discussion documented in the medical record (1158F)BMI obtained (3008F)SBP < 130 (3074F)DBP <80 (3078F)Televideo 30-39min; chronic exacerbation, 2 stable chronic or 1 acute illness add modifier 95Advance care planning discussed and documented ? advance care plan or surrogate decision-maker was documented in the medical record. (1123F)Pain Assessment - Pain Documented (1125F)Continue to see PCP. Follow-up with [facility] as needed for any acute or disease education needs that may arise.<Add contingency plans here>contingency planWhen member to call: 1. If bp is elevated sbp>150; dbp>90 or symptomatic-h/a, dizziness, cp, sob. 2. if there is a fall 3. if feeling dizzy Enalapril, HCTZMonitor BP routinely, low salt diet, exercise as tolerable, continue taking meds and f/u care with PCP.StableDexlansoprazoleLifestyle interventions and continue with PCP.h/o collapsed vertebraStableContinue f/u care with PCP.recommend BD q 2 yearscontingency plancall CB for any joint painPLAN: rx voltaren, NSAID/tylenol combination StableTylenolPatient reports that she received corticosteroid shots.Continue with PCP.StablePt reports that she has an appt with her mobile paint specialist to discuss surgical intervention options.cough and chest congestion x 3 weekswheezing x 1 day Start doxy and alubterol and expect to feel better in 48-72 hrs - call CB if you are not improving. ER if you are short of breath or weak.Rest. Increase fluids to help your immune system - tea, broth, water, diluted juice. Raw local honey 1 TBSP throughout day has natural antimicrobial properties.Steam shower 15min before bed and few times / day to open airway and clear congestion. Stop Afrin as can worsen your congestion after using 3 + days. Inhaler puffer 4/ day for bronchodilationWhen member to call: 1. If bp is elevated sbp>150; dbp>90 or symptomatic-h/a, dizziness, cp, sob. 2. if there is a fall 3.if dizzy, off balance , shaky, general weakness. 4. if UTI symptoms arise-urinary frequency, dysuria, low abd pain. 5. if pain in knees increases/ or joint pain increased Please remember to call CBContinue to see PCP. Follow-up with [facility] as needed for any acute or disease education needs that may arise 07/04.what should be done when the member calls: see each individual diagnosis for contingency plan 2024-06-16 09:54:03 Phone (patient, pare nt, or guardian); 5-10 minutes of medical discussion (no modifier 95)Continue to see PCP. Follow-up with [facility] as needed for any acute or disease education needs that may arise 07/04.states she had a grandson (15 years old) that was there for a day and she was on edge, she denies any abuse from him or that he argues but states he is naturally anxious and feels she is now anxious at times. 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 avoid caffeine, call if any worsening symptomsWhen member to call: 1. If bp is elevated sbp>150; dbp>90 or symptomatic-h/a, dizziness, cp, sob. 2. if there is a fall 3.if dizzy, off balance , shaky, general weakness. 4. if UTI symptoms arise-urinary frequency, dysuria, low abd pain. 5. if pain in knees increases/ or joint pain increased Please remember to call CBContinue to see PCP. Follow-up with [facility] as needed for any acute or disease education needs that may arise 07/04.what should be done when the member calls: see each individual diagnosis for contingency plan 2024-11-11 13:15:12 Functional Status As sessed (1170F)Advance Care Directive Advance care planning discussion documented in the medical record (1158F)Advance care planning discussed and documented ? advance care plan or surrogate decision-maker was documented in the medical record. (1123F)Estab. patient 20-29min; 1 stable chronic or 2 minor; add add modifier 95 for video, modifier 93 for phoneMedication List Documented (1159F)Pain Assessment - Pain Documented on a Pain Scale (1125F)Medication Review by prescribing provider or pharmacist documented (1160F)SBP < 130 (3074F)DBP <80 (3078F)BMI obtained (3008F)Continue to see PCP. Follow-up with [facility] as needed for any acute or disease education needs that may arise.Rx: Enalapril, HCTZMonitor BP routinely, low salt diet, exercise as tolerable, continue taking meds and f/u care with PCP.Rx: Dexlansoprazole Don't lie down for at least 2 to 3 hours after eating small meals, avoid fatty foods, avoid spicy food, avoid chocolate, avoided caffeinated drinks, avoid alcoholic beverages.Rx: NSAID/tylenol combination - stretching, range of motion exercise such as ( walking , cycling, or water exercise). rest when in pain exacerbationQuest: eGFR 70 ( 01/01/2024)Avoid nephrotoxic medications (NSAIDS, high dose Gabapentin, Baclofen, Fleet Enema, Morphine/Codeine)PAIN CONTINGENCY PLANLast updated: 11/11/2024Member to call for the following symptoms: Increased pain/ Joint swelling/ StiffnessPlanned intervention: Voltaren gel to affected area/ Apply heat to affected area/ Apply ice to affected area Goals Date Goal 2023-09-11 Remember to contact EMS if developing emergent symptoms. 2023-09-11 Contact us if develo ping GI s/sx, urgent HTN s/sx, or worsening pain. 2023-09-11 Continue taking medi cations as prescribed and f/u care and monitoring with PCP every 3-6 months. 2024-06-16 Continue taking medi cations as directed and keep all follow up appointments with established PCP and Specialist. 2024-06-16 At least 50% of time spent counseling patient, discussing diagnosis, treatment plan, complicance, and coordinating follow up care. 2024-11-11 At least 50% of time spent counseling pt, discussing diagnosis, treatment plan, compliance, and coordinating followup care. Continue taking medications as directed and keep all follow up appointments with established PCP and Specialist Health Concerns Date Concern 2024-11-11 Visit completed usin g audio/video.Patient/Guardian agreed to visit via telehealth. Informed verbal consent was obtained from this patient to communicate and provide care using virtual and other telecommunications tools. This patient has been explained the risks, if any, related to the encounter. I explained that care provided through video or audio communication cannot replace the need for physical examination or an in-person visit for some disorders or urgent problems. Reviewed Allergies, Medications, Active Medical conditions, past medical/surgical history, Social history. 2024-11-11 Most recent hospital stay(s) or ER visit(s) and precipitating factors: no recent ER visits
== END 2024-12-17 14:17 | disposition home or self-care (01) ==
LOC: HO.HMCH 13:36
PROVIDERS: PCP Internal Medicine; Visit Provider Internal Medicine
DX: I10 Essential (primary) hypertension (principal); M19.011 Primary osteoarthritis, right shoulder; Z68.28 Body mass index [BMI] 28.0-28.9, adult; M19.012 Primary osteoarthritis, left shoulder; M17.0 Bilateral primary osteoarthritis of knee; M81.0 Age-related osteoporosis without current pathological fracture; E66.3 Overweight; M25.552 Pain in left hip; E83.52 Hypercalcemia; K21.9 Gastro-esophageal reflux disease without esophagitis; J30.9 Allergic rhinitis, unspecified

== ENCOUNTER → 2024-12-17 13:36 | Outpatient (BNVA) | payer OTHER, SELFPAY | PROVIDERS: PCP Internal Medicine; Visit Provider Internal Medicine | DX: I10 Essential (primary) hypertension (principal); M19.011 Primary osteoarthritis, right shoulder; M19.012 Primary osteoarthritis, left shoulder; M17.0 Bilateral primary osteoarthritis of knee; M81.0 Age-related osteoporosis without current pathological fracture; M25.552 Pain in left hip; E83.52 Hypercalcemia; E55.9 Vitamin D deficiency, unspecified; K21.9 Gastro-esophageal reflux disease without esophagitis; J30.9 Allergic rhinitis, unspecified; E66.3 Overweight; Z68.25 Body mass index [BMI] 25.0-25.9, adult | CPT/HCPCS: 96127; 99212 ==

== ENCOUNTER 2024-12-18 10:17 | Outpatient (REF) | payer OTHER, SELFPAY ==
--- NOTE | ~2024-12-18 | XR_ITS ---
EXAMINATION: XR HIP 2 OR MORE VIEWS LEFT HISTORY: M25.552 - Pain in left hip COMPARISON: There are no prior studies for comparison. FINDINGS: Two views of the left hip are submitted. Osseous mineralization is normal. There is no fracture or dislocation. There is mild medial joint space narrowing. The soft tissues are unremarkable. XR/XR hip LT min 2V IMPRESSION: Mild joint space narrowing. Electronically signed by: Charli Ventura MD 12/20/2024 01:58 PM EDT
--- OUTSIDE RECORDS SUMMARY | 2024-12-18 10:19 | XMS_ITS ---
Author Name Pranay CEJAN,GUEST HOUSE MANAGER,FAVIAN P,WATERPROOFING MIXER, Berenice Address [address] [place] [id number] Phone [phone] [facility] Care Team Providers Care Feed Mill Supervisor Name Role Phone Pranay Berenice Unavailable [phone] Unavailable Unavailable Unavailable Reason for Referral Not [...] Active 2024-11-11 N/A Other problems related to mt dical facilities and other health care Active 2024-11-11 N/A Osteoarthritis Active 2023-09-11 N/A Encounters Encounters Type Facility Date of Service Diagnosis/Co mplaint New patient,40-59min; chronic exacerbation, 2 stable chronic or 1 acute illness add add modifier 95 for video (do not use for phone, instead use 46415-18) [facility] Essential (primary) hypertensionGastro-esophageal reflux disease without esophagitisPersonal history of (healed) traumatic fractureUnspecified osteoarthritis, unspecified siteUnspecified cataract New patient,40-59min; chronic exacerbation, 2 stable chronic or 1 acute illness add add modifier 95 for video (do not use for phone, instead use 75760-79) [facility] New patient,40-59min; chronic exacerbation, 2 stable chronic or 1 acute illness add add modifier 95 for video (do not use for phone, instead use 00341-27) [facility] New patient,40-59min; chronic exacerbation, 2 stable chronic or 1 acute illness add add modifier 95 for video (do not use for phone, instead use 47242-38) [facility] New patient,40-59min; chronic exacerbation, 2 stable chronic or 1 acute illness add add modifier 95 for video (do not use for phone, instead use 34844-45) [facility] New patient,40-59min; chronic exacerbation, 2 stable chronic or 1 acute illness add add modifier 95 for video (do not use for phone, instead use 54024-71) [facility] New patient,40-59min; chronic exacerbation, 2 stable chronic or 1 acute illness add add modifier 95 for video (do not use for phone, instead use 34335-83) [facility] Estab. patient 30-39min; chronic exacerbation, 2 stable chronic or 1 acute illness add add modifier 95 for video, (do not use for phone, instead use 94482-19) [facility]23 Essential (primary) hypertensionGastro-esophageal reflux disease without [...] (do not use for phone, instead use 99141-48) [facility] Estab. patient 30-39min; chronic exacerbation, 2 stable chronic or 1 acute illness add add modifier 95 for video, (do not use for phone, instead use 77083-86) [facility] Estab. patient 30-39min; chronic exacerbation, 2 stable chronic or 1 acute illness add add modifier 95 for video, (do not use for phone, instead use 16475-56) [facility] Estab. patient 30-39min; chronic exacerbation, 2 stable chronic or 1 acute illness add add modifier 95 for video, (do not use for phone, instead use 00901-37) [facility] Estab. patient 30-39min; chronic exacerbation, 2 stable chronic or 1 acute illness add add modifier 95 for video, (do not use for phone, instead use 40304-94) [facility] Estab. patient 30-39min; chronic exacerbation, 2 stable chronic or 1 acute illness add add modifier 95 for video, (do not use for phone, instead use 72415-22) [facility] Estab. patient 30-39min; chronic exacerbation, 2 stable chronic or 1 acute illness add add modifier 95 for video, (do not use for phone, instead use 02077-61) [facility] Estab. patient 30-39min; chronic exacerbation, 2 stable chronic or 1 acute illness add add modifier 95 for video, (do not use for phone, instead use 86794-27) [facility] Estab. patient 30-39min; chronic exacerbation, 2 stable chronic or 1 acute illness add add modifier 95 for video, (do not use for phone, instead use 38654-89) [facility] Estab. patient 30-39min; chronic exacerbation, 2 stable chronic or 1 acute illness add add modifier 95 for video, (do not use for phone, instead use 12219-46) [facility]23 No Data Available [facility]24 Anxiety disorder, unspecifiedOther problems related to medical facilities and other health care No Data Available [facility] No Data Available [facility] Estab. patient 20-29min; 1 stable chronic or 2 minor; add add modifier 95 for video, modifier 93 for phone [facility]2024 Hypertensive chronic kidney disease w stg 1-4/unsp chr kdnyChronic kidney disease, stage 2 (mild)Gastro-esophageal reflux disease without esophagitisUnspecified osteoarthritis, unspecified siteOther problems related to medical facilities and other health care Estab. patient 20-29min; 1 stable chronic or 2 minor; add add modifier 95 for video, modifier 93 for phone [facility] Estab. patient 20-29min; 1 stable chronic or 2 minor; add add modifier 95 for video, modifier 93 for phone [facility] Estab. patient 20-29min; 1 stable chronic or 2 minor; add add modifier 95 for video, modifier 93 for phone [facility] Estab. patient 20-29min; 1 stable chronic or 2 minor; add add modifier 95 for video, modifier 93 for phone [facility] Estab. patient 20-29min; 1 stable chronic or 2 minor; add add modifier 95 for video, modifier 93 for phone [facility] Estab. patient 20-29min; 1 stable chronic or 2 minor; add add modifier 95 for video, modifier 93 for phone [facility] Estab. patient 20-29min; 1 stable chronic or 2 minor; add add modifier 95 for video, modifier 93 for phone [facility]2024 Vital Signs Date of Collection Vitals [...] tive Time Current Smoking Status Never smoker 5 Sex Female Gender identity Woman History of Procedures Procedures Service Procedure code Service date Servicing provider Phone# New patient,40-59min; chronic exacerbation, 2 stable chronic or 1 acute illness add add modifier 95 for video (do not use for phone, instead use 10190-98) [id number] 2023-09-11 No Data Available No Data Availa [...] (do not use for phone, instead use 64600-60) [id number] 2023-10-28 No Data Available No Data Availa [...] No Data Avail able No Data Available [id number] 2024-06-16 No Data Available No Data Available Pain Assessment - NO pain present (1126F) 1126F 2024-06-16 No Data Available No Data A vailable Medication List Documented (1159F) [id number] 2024-06-16 No Data Available No Data Karissa ilable Estab. patient 20-29min; 1 stable chronic or 2 minor; add add modifier 95 for video, modifier 93 for phone [id number] 2024-11-11 No Data Available No Data Availa [...] that she has an appt with her quality control representative to discuss surgical intervention options. 2023-10-28 07:08:07 [...] that she has an appt with her quality control representative to discuss surgical intervention options.cough and chest [...] she is now anxious at times. 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
[2024-12-18 10:41] LABS: MANUAL DIFF FLAG NO
[2024-12-18 11:15] LABS: Basophils Absolute Auto 0.1 X10*3/uL (0.0-0.2); Eosinophils Absolute Auto 0.1 X10*3/uL (0.0-0.4); Eosinophils Percent Auto 1.9 % (0-4); Hematocrit 44.4 % (37.0-47.0); Hemoglobin 14.3 g/dl (12.0-16.0); Lymphocytes Absolute Auto 1.5 X10*3/uL (1.2-4.9); Lymphocytes Percent Auto 30.6 % (20-40); Mean Corpuscular HGB Conc 32.2 g/dl (31.0-35.0); Mean Corpuscular Hemoglobin 30.7 pg (27.0-33.0); Mean Corpuscular Volume 95.3 fL (80.0-98.0); Mean Platelet Volume 12.4 fL (9.4-12.3); Monocytes Absolute Auto 0.3 X10*3/uL (0.1-1.2); Neutrophils Absolute Auto 2.9 x10*3/uL (2.0-8.3); Neutrophils Percent Auto 59.5 % (45-73); Platelet Count 198 X10*3/uL (160-400); Red Blood Count 4.66 X10*6/uL (4.20-5.50); Red Cell Distribution Width 12.8 % (11.0-16.0); White Blood Count 4.8 X10*3/uL (4.8-10.8)
[2024-12-18 11:58] LABS: Alanine Aminotransferase 11 U/L (0-31); Albumin Level 4.3 g/dL (3.5-5.0); Alkaline Phosphatase 76 U/L (39-117); Anion Gap 12 (12-20); Aspartate Amino Transferase 18 U/L (5-31); Bilirubin Total 0.6 mg/dL (0.0-1.0); Blood Urea Nitrogen 18 mg/dL (9-16); Calcium 10.5 mg/dL (8.4-10.2); Carbon Dioxide 30 mmol/L (22-29); Chloride 107 mmol/L (96-108); Cholesterol 198 mg/dL (<200); Estimated Glomerular Filt Rate > 60; Glucose Fasting 105 mg/dL (60-99); HDL Cholesterol 69 mg/dL (>40); LDL Cholesterol Calculated 116 mg/dL (<100); Potassium 4.7 mmol/L (3.3-5.1); Sodium 144 mmol/L (135-145); Total Protein 7.1 g/dL (6.5-8.0); Triglycerides 65 mg/dL (<150)
[2024-12-18 12:19] LABS: TSH reflex Free T4 0.51 uIU/mL (0.32-4.0); Vitamin D 25-OH Total 74.2 ng/mL (>30)
[2024-12-18 12:29] LABS: Appearance Urine Cloudy; Color Urine Yellow; Glucose Urine UA Negative (Negative); Leukocyte Esterase Urine Large (3+) (Negative); Nitrite Urine Negative (Negative); Specific Gravity - Urine >= 1.030 (1.005-1.025); UMIC TRIGGER UACC YES; Urine Blood Negative (Negative); Urine Ketones Trace mg/dL (Negative); Urine Protein Trace mg/dL (Neg-Trace)
[2024-12-18 12:35] LABS: Bacteria Urine 2+ (None Seen); Hyaline Casts Urine 0-2 /LPF (0-2); RBC Urine 0-2 /HPF (0-2); UACC Culture Trigger YES
[2024-12-27 14:49] LABS: N-Telopeptide 71 (see note); NTXCreaRU 185 mg/dL (20-275)
== END 2024-12-18 10:18 | disposition home or self-care (01) ==
LOC: HO.XRAY 10:17
PROVIDERS: PCP Internal Medicine; Visit Provider Internal Medicine
DX: M25.552 Pain in left hip (principal); M81.0 Age-related osteoporosis without current pathological fracture; D64.9 Anemia, unspecified; E78.00 Pure hypercholesterolemia, unspecified; E55.9 Vitamin D deficiency, unspecified; Z13.9 Encounter for screening, unspecified
CPT/HCPCS: 36415; 73502; 80053; 80061; 81001; 81003; 82306; 82523; 84443; 85025; 87086

== ENCOUNTER → 2024-12-18 10:48 | Outpatient (BNV) | payer OTHER, SELFPAY | PROVIDERS: PCP Internal Medicine; Visit Provider Radiology Diagnostic Radiology | DX: M25.552 Pain in left hip (principal) | CPT/HCPCS: 73502 ==

== ENCOUNTER 2025-02-22 11:47 | Outpatient (REF) | payer OTHER, SELFPAY ==
--- OUTSIDE RECORDS SUMMARY | 2025-02-22 14:07 | XMS_ITS ---
Author Name Pranay CEJAN,MEDICAL CLAIMS MANAGER,FAVIAN P,LEAD FABRICATOR, Berenice Address [address] [place] [id number] Phone [phone] [facility] Care Team Providers Care Aviation Survival Technician Name Role Phone Pranay Berenice Unavailable [phone] Unavailable Unavailable Unavailable Reason for Referral Not [...] List Problem Status Onset Date Resolved Date Synopsis Acute bacterial bronchitis Resolved 2023-10-28 2024-06-16 cough and chest congestion x 3 weekswheezing x [...] + days. Inhaler puffer 4/ day for bronchodilation GERD (gastroesophageal reflux disease) Active 2023-09-11 N/A Rx: Dexlansopraz ole Don't lie down for at least 2 to 3 hours after eating small meals, avoid fatty foods, avoid spicy food, avoid chocolate, avoided caffeinated drinks, avoid alcoholic beverages. Essential hypertension Active 2023-09-11 N/A Rx : Enalapril, HCTZMonitor BP routinely, low salt diet, exercise as tolerable, continue taking meds and f/u care with PCP. CKD (chronic kidney disease) stage 2, GFR 60-89 ml/min Active 2024-11-11 N/A [facility]: eGFR 70 ( 01/01/2024)Avoid nephrotoxic medications (NSAIDS, high dose Gabapentin, Baclofen, Fleet Enema, Morphine/Codeine) Other problems related to medical facilities and other health care Active 2024-11-11 N/A PAIN CONTIN GENCY PLANLast updated: 11/11/2024Member to call for the following symptoms: Increased pain/ Joint swelling/ StiffnessPlanned intervention: Voltaren gel to affected area/ Apply heat to affected area/ Apply ice to affected area Osteoarthritis Active 2023-09-11 N/A Rx: NSAID/ tylenol combination - stretching, range of motion exercise such as ( walking , cycling, or water exercise). rest when in pain exacerbation Encounters Encounters Type Facility Date of Service Diagnosis/Co mplaint New patient,40-59min; chronic exacerbation, 2 stable chronic or 1 acute illness add add modifier 95 for video (do not use for phone, instead use 30781-99) [facility] [place]) 09[place]11/2023 Essential (primary) hypertensionGastro-esophageal reflux disease without esophagitisPersonal history of (healed) traumatic fractureUnspecified osteoarthritis, unspecified siteUnspecified cataract New patient,40-59min; chronic exacerbation, 2 stable chronic or 1 acute illness add add modifier 95 for video (do not use for phone, instead use 64791-87) [facility] [place]20[place] New patient,40-59min; chronic exacerbation, 2 stable chronic or 1 acute illness add add modifier 95 for video (do not use for phone, instead use 23361-38) [facility] [place] 09/11/2023 New patient,40-59min; chronic exacerbation, 2 stable chronic or 1 acute illness add add modifier 95 for video (do not use for phone, instead use 47904-70) [facility] [place]20[place] New patient,40-59min; chronic exacerbation, 2 stable chronic or 1 acute illness add add modifier 95 for video (do not use for phone, instead use 72557-15) [facility] [place] New patient,40-59min; chronic exacerbation, 2 stable chronic or 1 acute illness add add modifier 95 for video (do not use for phone, instead use 37482-32) [facility] [place]20[place] New patient,40-59min; chronic exacerbation, 2 stable chronic or 1 acute illness add add modifier 95 for video (do not use for phone, instead use 02463-82) [facility] [place]20[place] Estab. patient 30-39min; chronic exacerbation, 2 stable chronic or 1 acute illness add add modifier 95 for video, (do not use for phone, instead use 52323-65) [facility] [place] 10[place]28/2023 Essential (primary) hypertensionGastro-esophageal reflux disease without [...] (do not use for phone, instead use 18124-01) [facility] [place]20[place] Estab. patient 30-39min; chronic exacerbation, 2 stable chronic or 1 acute illness add add modifier 95 for video, (do not use for phone, instead use 06991-53) [facility] [place]20[place] Estab. patient 30-39min; chronic exacerbation, 2 stable chronic or 1 acute illness add add modifier 95 for video, (do not use for phone, instead use 81658-20) [facility] [place]20[place] Estab. patient 30-39min; chronic exacerbation, 2 stable chronic or 1 acute illness add add modifier 95 for video, (do not use for phone, instead use 36475-19) [facility] [place]20[place] Estab. patient 30-39min; chronic exacerbation, 2 stable chronic or 1 acute illness add add modifier 95 for video, (do not use for phone, instead use 48403-04) [facility] [place]20[place] Estab. patient 30-39min; chronic exacerbation, 2 stable chronic or 1 acute illness add add modifier 95 for video, (do not use for phone, instead use 99091-20) [facility] [place]20[place] Estab. patient 30-39min; chronic exacerbation, 2 stable chronic or 1 acute illness add add modifier 95 for video, (do not use for phone, instead use 25998-92) [facility] [place]20[place] Estab. patient 30-39min; chronic exacerbation, 2 stable chronic or 1 acute illness add add modifier 95 for video, (do not use for phone, instead use 08573-66) [facility] [place]20[place] Estab. patient 30-39min; chronic exacerbation, 2 stable chronic or 1 acute illness add add modifier 95 for video, (do not use for phone, instead use 71434-23) [facility] [place]2023 Estab. patient 30-39min; chronic exacerbation, 2 stable chronic or 1 acute illness add add modifier 95 for video, (do not use for phone, instead use 46813-65) [facility] [place] 10/28/2023 No Data Available [facility] [place]/2024 Anxiety disorder, unspecifiedOther problems related to medical facilities and other health care No Data Available [facility] [place]20[place] No Data Available [facility] [place]20[place] Estab. patient 20-29min; 1 stable chronic or 2 minor; add add modifier 95 for video, modifier 93 for phone [facility] [place]/2024 Hypertensive chronic kidney disease w stg 1-4/unsp chr kdnyChronic kidney disease, stage 2 (mild)Gastro-esophageal reflux disease without esophagitisUnspecified osteoarthritis, unspecified siteOther problems related to medical facilities and other health care Estab. patient 20-29min; 1 stable chronic or 2 minor; add add modifier 95 for video, modifier 93 for phone [facility] [place]/20[place] Estab. patient 20-29min; 1 stable chronic or 2 minor; add add modifier 95 for video, modifier 93 for phone [facility] [place]/20[place] Estab. patient 20-29min; 1 stable chronic or 2 minor; add add modifier 95 for video, modifier 93 for phone [facility] [place]20[place] Estab. patient 20-29min; 1 stable chronic or 2 minor; add add modifier 95 for video, modifier 93 for phone [facility] [place]20[place] Estab. patient 20-29min; 1 stable chronic or 2 minor; add add modifier 95 for video, modifier 93 for phone [facility] [place]/20[place] Estab. patient 20-29min; 1 stable chronic or 2 minor; add add modifier 95 for video, modifier 93 for phone [facility] [place]/20[place] Estab. patient 20-29min; 1 stable chronic or 2 minor; add add modifier 95 for video, modifier 93 for phone [facility] [place]2024 Vital Signs Date of Collection Vitals [...] tive Time Current Smoking Status Never smoker 2025-02-13 0 Sex Female Gender identity Woman History of Procedures Procedures Service Procedure code Service date Servicing provider Phone# New patient,40-59min; chronic exacerbation, 2 stable chronic or 1 acute illness add add modifier 95 for video (do not use for phone, instead use 74413-75) [id number] 2023-09-11 No Data Available No Data Availa [...] (do not use for phone, instead use 50946-21) 59286 2023-10-28 No Data Available No Data Availa [...] No Data Avail able No Data Available [id number] 2024-06-16 No Data Available No Data Available Pain Assessment - NO pain present (1126F) 1126F 2024-06-16 No Data Available No Data A vailable Medication List Documented (1159F) [id number] 2024-06-16 No Data Available No Data Karissa ilable Estab. patient 20-29min; 1 stable chronic or 2 minor; add add modifier 95 for video, modifier 93 for phone [id number] 2024-11-11 No Data Available No Data Availa [...] decision-maker. (1124F)Continue to see PCP. 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 2023-10-28 07:08:07 [...] that she has an appt with her supervisor livestock yard to discuss surgical intervention options.cough and chest [...] call CBContinue to see PCP. Follow-up with Gris as needed for any acute or disease education needs that may arise 07/04.what should be done when the member calls: see each individual diagnosis for contingency plan 2024-06-16 09:54:03 Phone (patient, pare nt, or guardian); 5-10 minutes of medical discussion (no modifier 95)Continue to see PCP. Follow-up with [facility] as needed for any acute or disease education needs that may arise 07/04.states she had a grandson (15 years old) that was there for a day and she was on edge, she denies any abuse from him or that he argues but states he is naturally anxious and feels she is now anxious at times. 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 Informed [...]
== END 2025-02-22 11:48 | disposition home or self-care (01) ==
LOC: HO.MAMMO 11:47
PROVIDERS: PCP Internal Medicine; Visit Provider Internal Medicine
DX: Z12.31 Encounter for screening mammogram for malignant neoplasm of breast (principal)
CPT/HCPCS: 77063; 77067

== ENCOUNTER → 2025-02-22 12:00 | Outpatient (BNV) | payer OTHER, SELFPAY | PROVIDERS: PCP Internal Medicine; Visit Provider Internal Medicine | DX: Z12.31 Encounter for screening mammogram for malignant neoplasm of breast (principal) | CPT/HCPCS: 77063; 77067 ==

== ENCOUNTER 2025-03-21 17:47 | Emergency (ER) | payer OTHER, SELFPAY ==
[2025-03-21 18:11] VITALS: BP 140/61; PULSE 74; RESP 16; TEMP 36.8; O2SAT 100; BMI 23.7
--- NOTE | 2025-03-21 18:11 | ED_ITS ---
HPI - General Adult General Chief complaint: Abdominal Pain Stated complaint: Diarrhea Related Data Previous Rx's ?Medication ?Instructions ?Recorded acetaminophen 500 mg tablet 500 mg PO Q6H PRN fever or pain 07/27/22 (Tylenol Extra Strength) #14 tabs naproxen 500 mg tablet 500 mg PO BID PRN pain 10 da ys #20 07/27/22 tabs clotrimazole 1 % topical cream 1 appl topical BID 2 we eks #45 10/29/22 (Lotrimin AF (clotrimazole)) grams peg 3350-electrolytes 236 240 ml PO Q10M 1 day #4,000 mL 12/09/22 gram-22.74 gram-6.74 gram-5.86 gram solution (Golytely) loratadine 10 mg tablet 10 mg PO DAILY PRN allergy 0 04/28/23 symptoms 90 days #90 tabs QUAD CANE #1 ea 05/12/23 SHOWER CHAIR #1 ea 05/12/23 HANDHELD SHOWER HEAD #1 ea 01/28/24 cholecalciferol (vitamin D3) 25 25 mcg PO DAILY 90 day s #90 caps 02/16/24 mcg (1,000 unit) capsule dexlansoprazole 60 mg 60 mg PO DAILY 90 days #90 c aps 04/06/24 capsule,biphase delayed release (Dexilant) hydrochlorothiazide 25 mg tablet 25 mg PO DAILY #90 ta bs 11/20/24 enalapril maleate 2.5 mg tablet 2.5 mg PO DAILY #90 ta bs 12/17/24 Allergies Allergy/AdvReac Type Severity Reaction Status Date / Time No Known Allergies (No Known Allergy Verified 03/22/25 09:03 Allergies*) [facility] Past Medical History Medical History (Updated 03/22/25 @ 09:18 by Codie Ludwig CNP) Osteoporosis Cataracts, bilateral Allergic rhinitis Vitamin D deficiency Overweight (BMI 25.0-29.9) Degenerative joint disease of right shoulder GERD without esophagitis Benign essential hypertension Surgical History H/O local excision of skin lesion History of colonoscopy History of cholecystectomy Family History Family History Father CVD (cardiovascular disease) Mother No problems noted. Daughter In good health Sister In good health Sister In good health Sister In good health Brother In good health Social History Social History Housing: Apartment Alcohol intake: never Patient Tobacco Use Status: Never used Tobacco e-Cigarette/Vaping Use: Never Used Second Hand Smoke Exposure: Yes Do you have a plan to hurt others: No Plan service: No Current occupational status: retired Cognitive needs: No Hearing needs: No Vision needs: Yes (Glasses) Physical Exam ED Vital Signs: Vital Signs - 24 hr 03/21/25 18:11 Temperature 98.2 F Pulse Rate 74 Respiratory Rate 16 Blood Pressure 140/61 H Pulse Oximetry 100 Oxygen Delivery Method Room Air BMI result Body Mass Index 23.7 Course Course Course Narrative: This is an RME performed by Amanda Ludwig CNP: Additional HPI, ROS, PE not included below will be deferred to primary provider. Patient is a 74-year-old female who presents emergency department for evaluation, with the past 5 days has been experiencing diarrhea, loose / watery and soft stools, without hematochezia or melena, no nausea or vomiting. Patient tried Imodium but still continues with the symptoms. Has associated abdominal pain diffusely described as cramping. Plan: serum labs, urinalysis Reevaluation(s) Reevaluation #1: LWCT Medical Decision Making Lab Data 03/21/25 18:35 03/21/25 18:35 Labs: Lab Results 03/21/25 Range/Units 18:35 WBC 7.1 (4.8-10.8) X10*3/uL RBC 4.55 (4.20-5.50) X10*6/uL Hgb 14.3 (12.0-16.0) g/dl Hct 41.0 (37.0-47.0) % MCV 90.1 (80.0-98.0) fL MCH 31.4 (27.0-33.0) pg MCHC 34.9 (31.0-35.0) g/dl RDW 12.1 (11.0-16.0) % Plt Count 206 (160-400) X10*3/uL MPV 11.8 (9.4-12.3) fL Immature Gran % (Auto) Cancelled Neut % (Auto) Cancelled Lymph % (Auto) Cancelled [place] % (Auto) Cancelled Eos % (Auto) Cancelled Baso % (Auto) Cancelled Lymph # (Auto) Cancelled [place] # (Auto) Cancelled Eos # (Auto) Cancelled Baso # (Auto) Cancelled Abs Immat Gran (auto) Cancelled Absolute Neuts (auto) Cancelled Absolute Nucleated RBC 0.000 (0.0-0.012) X10*3/uL Nucleated RBC % (auto) 0.0 (0.0-0.2) /100WBC Neutrophils % (Manual) 59 (45-73) % Band Neutrophils % 9 H (3-5) % Lymphocytes % (Manual) 20 (20-40) % Monocytes % (Manual) 11 (2-11) % Eosinophils % (Manual) 1 (0-4) % Abs Neuts (Manual) 4.8 (2.0-8.3) X10*3/uL Lymphocytes # (Manual) 1.4 (1.2-4.9) X10*3/uL Monocytes # (Manual) 0.8 (0.1-1.2) X10*3/uL Eosinophils # (Manual) 0.1 (0.0-0.4) X10*3/uL Platelet Estimate NORMAL (NORMAL) Plt Morphology Comment NORMAL RBC Morphology NORMAL Smear Tech's Comments MANUAL DIFF Sodium 140 (135-145) mmol/L Potassium 3.2 L D (3.3-5.1) mmol/L Chloride 102 (96-108) mmol/L Carbon Dioxide 25 (22-29) mmol/L Anion Gap 16 (12-20) BUN 12 (9-16) mg/dL Creatinine 0.79 (0.5-1.4) mg/dL Estim Creat Clear Calc 46.4 Estimated GFR > 60 Random Glucose 104 (60-115) mg/dL Calcium 10.1 (8.4-10.2) mg/dL Magnesium 1.8 (1.6-2.6) mg/dL Total Bilirubin 0.4 (0.0-1.0) mg/dL AST 19 (5-31) U/L ALT 13 (0-31) U/L Alkaline Phosphatase 62 (39-117) U/L Total Protein 6.6 (6.5-8.0) g/dL Albumin 4.1 (3.5-5.0) g/dL Lipase 8 (8-78) U/L Urine Color Yellow Urine Appearance Clear Urine pH 6.5 (5.0-9.0) Ur Specific [place] 1.025 (1.005-1.025) Urine Protein 30 (1+) H (Neg-Trace) mg/dL Urine Glucose (UA) Negative (Negative) mg/dL Urine Ketones 15 (Negative) mg/dL Urine Blood Negative (Negative) Urine Nitrite Negative (Negative) Ur Leukocyte Esterase Moderate (2+) H (Negative) Urine RBC 0-2 (0-2) /HPF Urine WBC 6-10 H (0-5) /HPF Ur Squamous Epith Cells 6-10 (0-2) /HPF Urine Bacteria 1+ (None Seen) Hyaline Casts 0-2 (0-2) /LPF Discharge Plan Discharge Clinical Impression: Diarrhea Patient Disposition: Left W/O Completing Treatment Prescriptions: No Action peg 3350-electrolytes [Golytely] 236-22.74-6.74 -5.86 gram recon soln 240 ml PO Q10M 1 Days Qty: 4000 0RF Rx Instructions: until fecal effluent is clear; do not exceed a total volume of 2,000 mL (DME) QUAD CANE See Rx Instructions .Route .MEDSUPPLY Qty: 1 0RF Rx Instructions: As directed (DME) SHOWER CHAIR See Rx Instructions .Route .MEDSUPPLY Qty: 1 0RF Rx Instructions: As directed (DME) HANDHELD SHOWER HEAD See Rx Instructions .Route .MEDSUPPLY Qty: 1 0RF Rx Instructions: As directed Dexilant 60 mg capsule,biphase delayed releas 60 mg PO DAILY 90 Days Qty: 90 3RF hydrochlorothiazide 25 mg tablet 25 mg PO DAILY Qty: 90 1RF acetaminophen [Tylenol Extra Strength] 500 mg tablet 500 mg PO Q6H PRN (Reason: fever or pain) Qty: 14 0RF naproxen 500 mg tablet 500 mg PO BID PRN (Reason: pain) 10 Days Qty: 20 0RF clotrimazole [Lotrimin AF (clotrimazole)] 1 % cream 1 appl topical BID 14 Days Qty: 45 0RF loratadine 10 mg tablet 10 mg PO DAILY PRN (Reason: allergy symptoms) 90 Days Qty: 90 3RF cholecalciferol (vitamin D3) 25 mcg (1,000 unit) capsule 25 mcg PO DAILY 90 Days Qty: 90 3RF enalapril maleate 2.5 mg tablet 2.5 mg PO DAILY Qty: 90 3RF Discharge Date/Time: 03/22/25 02:14
[2025-03-21 18:43] LABS: Hematocrit 41.0 % (37.0-47.0); Hemoglobin 14.3 g/dl (12.0-16.0); Mean Corpuscular HGB Conc 34.9 g/dl (31.0-35.0); Mean Corpuscular Hemoglobin 31.4 pg (27.0-33.0); Mean Corpuscular Volume 90.1 fL (80.0-98.0); NRBC Abs Auto 0.000 X10*3/uL (0.0-0.012); NRBC Pct Auto 0.0 /100WBC (0.0-0.2); Platelet Count 206 X10*3/uL (160-400); Red Blood Count 4.55 X10*6/uL (4.20-5.50); White Blood Count 7.1 X10*3/uL (4.8-10.8)
[2025-03-21 18:46] LABS: Appearance Urine Clear; Glucose Urine UA Negative (Negative); PH 6.5 (5.0-9.0); Specific Gravity - Urine 1.025 (1.005-1.025); UMIC TRIGGER UACC YES
[2025-03-21 18:56] LABS: Alanine Aminotransferase 13 U/L (0-31); Albumin Level 4.1 g/dL (3.5-5.0); Alkaline Phosphatase 62 U/L (39-117); Anion Gap 16 (12-20); Aspartate Amino Transferase 19 U/L (5-31); Blood Urea Nitrogen 12 mg/dL (9-16); Calcium 10.1 mg/dL (8.4-10.2); Carbon Dioxide 25 mmol/L (22-29); Chloride 102 mmol/L (96-108); Creatinine Clr Calc Pharmacy 46.4; Estimated Glomerular Filt Rate > 60; Lipase 8 U/L (8-78); Magnesium 1.8 mg/dL (1.6-2.6); Potassium 3.2 mmol/L (3.3-5.1); Sodium 140 mmol/L (135-145); Total Protein 6.6 g/dL (6.5-8.0)
[2025-03-21 19:03] LABS: UACC Culture Trigger YES
[2025-03-21 19:28] LABS: Band Neutrophils Percent 9 % (3-5); Eosinophils Absolute Manual 0.1 X10*3/uL (0.0-0.4); Eosinophils Percent Manual 1 % (0-4); Lymphocytes Absolute Manual 1.4 X10*3/uL (1.2-4.9); Lymphocytes Percent Manual 20 % (20-40); Monocytes Absolute Manual 0.8 X10*3/uL (0.1-1.2); Monocytes Percent Manual 11 % (2-11); Neutrophils Absolute Manual 4.8 X10*3/uL (2.0-8.3); Neutrophils Percent Manual 59 % (45-73)
[2025-03-21 19:29] LABS: RBC Morphology NORMAL
== END 2025-03-22 02:14 | disposition left against medical advice (07) ==
PROVIDERS: Nurse Practitioner Family; Emergency Provider Emergency Medicine; PCP Internal Medicine
DX: R10.2 Pelvic and perineal pain (principal); R19.7 Diarrhea, unspecified; Z79.899 Other long term (current) drug therapy
CPT/HCPCS: 36415; 80053; 81001; 83690; 83735; 85007; 85025; 85027; 87086; 99282; 99283

== ENCOUNTER 2025-03-22 08:55 | Emergency (ER) | payer OTHER, SELFPAY ==
--- NOTE | ~2025-03-22 | CT_ITS ---
EXAMINATION: CT ABDOMEN AND PELVIS WITH CONTRAST CLINICAL INFORMATION: Abdominal pain and diarrhea. DLP: 750 mGY*cm COMPARISON: None available. TECHNIQUE: Multidetector volumetric images were obtained from the superior aspect of the liver through the pubic symphysis following administration 85 mL of Omnipaque 350 intravenous contrast. Sagittal and coronal reformatted images were obtained on the technologist's workstation. Oral contrast: No This CT examination was performed using dose optimization techniques as appropriate, variously including the following: *Automated exposure control *Adjustment of mA and/or kV according to patient size (this includes techniques or standardized protocols for targeted exams where dose is matched to indication/reason for exam; i.e. extremities or head) *Use of iterative reconstruction technique FINDINGS: LUNG BASES: The visualized lung bases are unremarkable. LIVER, GALLBLADDER, AND BILIARY TREE: The liver is normal in size, shape, and attenuation. No focal hepatic lesion or biliary ductal dilatation is present. The bladder is surgically absent. There are clips in the gallbladder fossa. There is extra hepatic bile duct dilation with a duct diameter measuring 7 mm. This can be normal after sphincterotomy. PANCREAS: Unremarkable. SPLEEN: Unremarkable. ADRENAL GLANDS: Unremarkable. KIDNEYS AND URETERS: Right kidney is unremarkable without hydronephrosis or nephrolithiasis. Left kidney is absent. BLADDER: Unremarkable. GASTROINTESTINAL TRACT: There is moderate stool and gas in the rectosigmoid colon. There is mild increased vascularity in the mesentery along the colon. There is subtle wall thickening of the rectosigmoid junction. The appendix is normal caliber. ABDOMINAL WALL: No significant hernia is appreciated. LYMPH NODES: Normal. VASCULAR: Unremarkable. PELVIC VISCERA: Uterus is deviated toward the right hemipelvis. The ovaries are unremarkable. There is a small volume of free fluid adjacent to the right ovary. OSSEOUS STRUCTURES: T11 butterfly vertebra is present. Moderate degenerative disc disease is evident at L2-3 and L3-4. Severe facet arthropathy is present on the left at L4-5 and L5-S1.. CT/CT abdomen pelvis w IV con IMPRESSION: Moderate stool and gas is noted in the rectum. Very mild wall thickening is present at the rectosigmoid junction. There is also mildly increased vascularity mesentery along the colon consistent with gastroenteritis. Other etiologies such as ischemia or inflammatory bowel disease are less likely. Cholecystectomy. T11 butterfly vertebra. Absent left kidney. Fleischner guidelines were followed. Electronically signed by: Pollo Elizondo MD 03/22/2025 12:58 PM EDT
[2025-03-22 09:02] VITALS: BP 147/75; PULSE 75; RESP 18; TEMP 36.6; O2SAT 100; BMI 23.4
--- NOTE | 2025-03-22 09:03 | ED_ITS ---
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 plant worker) Mode of arrival: ambulatory Limitations: language barrier (all interactions with this patient were facilitated with an [facility] plant worker) History of Present Illness ED Provider: Clarice Hernández PA-C HPI Narrative: Patient is a 74 year old assigned female at with a history of GERD and HTN presenting to the emergency department today with diarrhea and abdominal pain. Patient states that over the last week she has had diarrhea and when she needs to go, she has lower abdominal cramping. Patient denies any dizziness, lightheadedness, nausea, vomiting, fever, chills, blurry vision, double vision, loss of vision, chest pain, difficulty breathing, shortness of breath, back pain, night sweats, pain with urination, increased urinary frequency, increased urinary urgency, blood in her urine or stool, syncope or a near syncopal episode, recent trauma or falls, bowel incontinence, bladder incontinence, or any other complaints at this time. MD elicited complaint: diarrhea and abdominal pain Related Data Previous Rx's ?Medication ?Instructions ?Recorded acetaminophen 500 mg tablet 500 mg PO Q6H PRN fever or pain 07/27/22 (Tylenol Extra Strength) #14 tabs naproxen 500 mg tablet 500 mg PO BID PRN pain 10 da ys #20 07/27/22 tabs clotrimazole 1 % topical cream 1 appl topical BID 2 we eks #45 10/29/22 (Lotrimin AF (clotrimazole)) grams peg 3350-electrolytes 236 240 ml PO Q10M 1 day #4,000 mL 12/09/22 gram-22.74 gram-6.74 gram-5.86 gram solution (Golytely) loratadine 10 mg tablet 10 mg PO DAILY PRN allergy 0 04/28/23 symptoms 90 days #90 tabs QUAD CANE #1 ea 05/12/23 SHOWER CHAIR #1 ea 05/12/23 HANDHELD SHOWER HEAD #1 ea 01/28/24 cholecalciferol (vitamin D3) 25 25 mcg PO DAILY 90 day s #90 caps 02/16/24 mcg (1,000 unit) capsule dexlansoprazole 60 mg 60 mg PO DAILY 90 days #90 c aps 04/06/24 capsule,biphase delayed release (Dexilant) hydrochlorothiazide 25 mg tablet 25 mg PO DAILY #90 ta bs 11/20/24 enalapril maleate 2.5 mg tablet 2.5 mg PO DAILY #90 ta bs 12/17/24 Allergies Allergy/AdvReac Type Severity Reaction Status Date / Time No Known Allergies (No Known Allergy Verified 03/22/25 09:03 Allergies*) Review of Systems 2 Constitutional: Constitutional: Reports no additional constitutional complaints, Denies chills, Denies fever(s) and Denies night sweats Eyes: Eyes: Reports no additional eye complaints, Denies blurry vision, Denies change in vision, Denies diplopia, Denies eye discharge, Denies loss of vision and Denies eye pain ENT: Denies dizziness Cardiovascular: Cardiovascular: Reports no additional cardiovascular complaints, Denies chest pain, Denies lightheadedness, Denies Loss of Consciousness and Denies dyspnea Respiratory: Respiratory: Reports no additional respiratory complaints and Denies dyspnea Gastrointestinal: Gastrointestinal: Reports no additional gastrointestinal complaints, Reports abdominal pain, Denies melena, Denies hematochezia, Denies change in bowel habits, Denies change in stool character and Reports diarrhea Genitourinary: Genitourinary: Denies hematuria, Denies urinary frequency, Denies dysuria, Denies urinary incontinence, Denies urinary hesitancy and Denies urinary urgency Musculoskeletal: Musculoskeletal: Reports no additional musculoskeletal complaints, Denies numbness and Denies tingling Neurologic: Denies dizziness, Denies loss of vision, Denies numbness and Denies tingling Psychiatric: Psychiatric: Reports no additional psychiatric complaints Endocrine: Endocrine: Reports no additional endocrine complaints Hematologic/Lymphatic: Hematologic/Lymphatic: Reports no additional hematologic/lymphatic complaints Allergic/Immunologic: Allergic/Immunologic: Reports no additional allergic/immunologic complaints [facility] Past Medical History Attestation statement: The following information was validated with the patient. Source: old records reviewed and nursing notes reviewed Medical History Osteoporosis Cataracts, bilateral Allergic rhinitis Vitamin D deficiency Overweight (BMI 25.0-29.9) Degenerative joint disease of right shoulder GERD without esophagitis Benign essential hypertension Surgical History H/O local excision of skin lesion History of colonoscopy History of cholecystectomy Family History Family History Father CVD (cardiovascular disease) Mother No problems noted. Daughter In good health Sister In good health Sister In good health Sister In good health Brother In good health Social History Social History Housing: Apartment Alcohol intake: never Patient Tobacco Use Status: Never used Tobacco e-Cigarette/Vaping Use: Never Used Second Hand Smoke Exposure: Yes service: No Current occupational status: retired Cognitive needs: No Hearing needs: No Vision needs: Yes (Glasses) Physical Exam 2 Vital Signs: Vital Signs: Last Vital Signs Temp 97.7 F 03/22/25 13:30 Pulse 60 03/22/25 13:30 Resp 18 03/22/25 13:30 BP 162/72 H 03/22/25 13:30 Pulse Ox 95 03/22/25 13:30 O2 Del Method Room Air 03/22/25 13:30 BMI result Body Mass Index 23.4 Const: General: cooperative, no acute distress, alert and awake Nutritional Appearance: well nourished Orientation/consciousness: patient oriented x3 HEENT: Head: Yes normal to inspection and Yes atraumatic Ears: hearing grossly normal bilaterally and external ears normal General nose exam: Normal external nose present, no nasal discharge noted and no epistaxis Face and sinus: Yes normal facial exam, No abrasion and No laceration Mouth: Normal oral and palatal mucosa present, no drooling and no muffled voice Eyes: General: appearance normal, both eyes and all related structures P eriorbital: periorbital findings normal Eyelids: Yes eyelids normal C onjunctivae: conjunctivae normal Pupils: Equal, round and reactive pupils present EOM: EOMs intact bilaterally Neck: Neck: Yes normal visual inspection, Yes full ROM and Yes no lymphadenopathy Resp: Effort & Inspection: normal respiratory effort and able to speak in complete sentences GI: Palpation (GI): Soft to palpation, not firm, no guarding and not rigid Neuro: General: patient oriented x3, moves all extremities and CN's II-XI intact bilaterally Cranial nerves: Yes Equal, round and reactive pupils present Cognition (Neuro): normal cognition Extrem: General: Yes normal to inspection, Yes full ROM and Yes capillary refill normal Psych: Appearance: grossly normal Mental Status: mental status grossly normal Affect: normal affect Attitude: cooperative Thought process: N ormal thought process present Thought content: Normal thought content present Insight: Good insight present (Psych) Course Course Course Narrative: 74 yo female with PMH of arthritis, GERD, HTN here with diarrhea x 1 week after eating rice with alexis and ribs - she has had diarrhea since then and she reports two episodes of diarrhea yesterday. No bloody stools, fevers. She has pain before she has BM. She tried immodium with some relief. No recent travel or abx use. She has hx of cholecystectomy. At this time will need labs, stool studies. last night she was LWCT - K was 3.2, WBC count normal but bandemia of 9. this is a RAPID medical screening exam the rest of the history and physical exam is to be done by the main provider. GAURANG 03/22/25 906am Medications Administered Discontinued Medications Generic Name Dose Route Start Last Admin Trade Name Taz PRN Reason Stop Dose Admin Iohexol 100 ml 03/22/25 12:36 03/22/25 12:36 Iohexol 350 Mg/Ml 100 Ml Infus..Btl IV 03/22/25 12:37 85 ml ONCE ONE Administration Magnesium Oxide 800 mg 03/22/25 11:18 03/22/25 12:09 Magnesium Oxide 400 Mg Tablet PO 03/22/25 11:19 800 mg ONCE ONE Administration Potassium Chloride 40 meq 03/22/25 11:18 03/22/25 12:10 Potassium Chloride Packet 20 Meq Packet PO 03/22/25 11:19 40 meq ONCE ONE Administration Medical Decision Making Medical Decision Making [facility] Narrative: Patient is a 74 year old assigned female at with a history of GERD and HTN presenting to the emergency department today with diarrhea and abdominal pain. Patient's physical exam was unremarkable. Patient's blood work today showed a potassium of 3.0 and otherwise unremarkable however, of note, she had a bandemia of 9% on 03/21/2025 that has now resolved. Patient's urine from 03/21/2025 showed leuks, 1+ bacteria, and 6-10 WBC however, it appears to be a contaminated specimen and her symptoms are not consistent with a UTI. Will await culture before initiating treatment. Patient's CT abd/pelvis showed evidence of gastroenteritis. Patient received PO potassium repletion while in the department. Patient's clinical presentation is most consistent with a viral gastroenteritis. I explained my physical exam findings as well as all test results to the patient. I answered all questions asked by the patient. I stressed the importance of the patient taking her medication as directed (either prescribed or as the over the counter packaging recommends). I stressed the importance of the patient following up with her primary care provider. I stressed the importance of the patient returning to the emergency department immediately if her symptoms were to worsen or if she were to develop any dizziness, shortness of breath, difficulty breathing, chest pain, blurry vision, loss of vision, nausea, vomiting, abdominal pain, fever, chills, back pain, or any other complaints. Patient verbalized agreement and understanding with this treatment plan and discharge. Differential Diagnosis Differential Diagnoses: The differential diagnosis associated with the presentation includes Gastroenteritis Diarrhea Admission/Observation Consideration of admission/observation: Escalation of care including admission/observation considered Patient would have been admitted to the hospital had her work up had any findings where hospital admission was appropriate and her clinical presentation warranted hospital admission. Lab Data [facility] Lab Attestation statement: I reviewed the patient's lab results. My interpretation of these results are in the [facility] Rationale portion of this note. 03/22/25 09:22 03/22/25 09:22 Labs: Lab Results 03/22/25 Range/Units 09:22 WBC 6.0 (4.8-10.8) X10*3/uL RBC 4.52 (4.20-5.50) X10*6/uL Hgb 13.8 (12.0-16.0) g/dl Hct 40.4 (37.0-47.0) % MCV 89.4 (80.0-98.0) fL MCH 30.5 (27.0-33.0) pg MCHC 34.2 (31.0-35.0) g/dl RDW 12.0 (11.0-16.0) % Plt Count 214 (160-400) X10*3/uL MPV 11.8 (9.4-12.3) fL Immature Gran % (Auto) 0.5 H (0.0-0.4) % Neut % (Auto) 57.5 (45-73) % Lymph % (Auto) 31.8 (20-40) % Zavala % (Auto) 8.7 (2-11) % Eos % (Auto) 0.7 (0-4) % Baso % (Auto) 0.8 (0-2) % Lymph # (Auto) 1.9 (1.2-4.9) X10*3/uL Zavala # (Auto) 0.5 (0.1-1.2) X10*3/uL Eos # (Auto) 0.0 (0.0-0.4) X10*3/uL Baso # (Auto) 0.1 (0.0-0.2) X10*3/uL Abs Immat Gran (auto) 0.03 (0.00-0.03) X10*3/uL Absolute Neuts (auto) 3.4 (2.0-8.3) x10*3/uL Absolute Nucleated RBC 0.000 (0.0-0.012) X10*3/uL Nucleated RBC % (auto) 0.0 (0.0-0.2) /100WBC Smear Tech's Comments VERIFIED Sodium 139 (135-145) mmol/L Potassium 3.0 L (3.3-5.1) mmol/L Chloride 102 (96-108) mmol/L Carbon Dioxide 28 (22-29) mmol/L Anion Gap 12 (12-20) BUN 13 (9-16) mg/dL Creatinine 0.71 (0.5-1.4) mg/dL Estim Creat Clear Calc 51.6 Estimated GFR > 60 Random Glucose 110 (60-115) mg/dL Calcium 10.0 (8.4-10.2) mg/dL Magnesium 1.9 (1.6-2.6) mg/dL Total Bilirubin 0.5 (0.0-1.0) mg/dL Direct Bilirubin 0.2 (0.0-0.5) mg/dL AST 21 (5-31) U/L ALT 16 (0-31) U/L Alkaline Phosphatase 68 (39-117) U/L Total Protein 6.9 (6.5-8.0) g/dL Albumin 4.2 (3.5-5.0) g/dL Lipase 11 (8-78) U/L Independent Interpretation I performed an independent interpretation of an: CT Scan Interpretation: My interpretation is in agreement with the radiologist's impression of this imaging study. L Report Number: [id number]: Total DLP = 750.00 mGy-cm EXAMINATION: CT ABDOMEN AND PELVIS WITH CONTRAST CLINICAL INFORMATION: Abdominal pain and diarrhea. DLP: 750 mGY*cm COMPARISON: None available. TECHNIQUE: Multidetector volumetric images were obtained from the superior aspect of the liver through the pubic symphysis following administration 85 mL of Omnipaque 350 intravenous contrast. Sagittal and coronal reformatted images were obtained on the technologist's workstation. Oral contrast: No This CT examination was performed using dose optimization techniques as appropriate, variously including the following: *Automated exposure control *Adjustment of mA and/or kV according to patient size (this includes techniques or standardized protocols for targeted exams where dose is matched to indication/reason for exam; i.e. extremities or head) *Use of iterative reconstruction technique FINDINGS: LUNG BASES: The visualized lung bases are unremarkable. LIVER, GALLBLADDER, AND BILIARY TREE: The liver is normal in size, shape, and attenuation. No focal hepatic lesion or biliary ductal dilatation is present. The bladder is surgically absent. There are clips in the gallbladder fossa. There is extra hepatic bile duct dilation with a duct diameter measuring 7 mm. This can be normal after sphincterotomy. PANCREAS: Unremarkable. SPLEEN: Unremarkable. ADRENAL GLANDS: Unremarkable. KIDNEYS AND URETERS: Right kidney is unremarkable without hydronephrosis or nephrolithiasis. Left kidney is absent. BLADDER: Unremarkable. GASTROINTESTINAL TRACT: There is moderate stool and gas in the rectosigmoid colon. There is mild increased vascularity in the mesentery along the colon. There is subtle wall thickening of the rectosigmoid junction. The appendix is normal caliber. ABDOMINAL WALL: No significant hernia is appreciated. LYMPH NODES: Normal. VASCULAR: Unremarkable. PELVIC VISCERA: Uterus is deviated toward the right hemipelvis. The ovaries are unremarkable. There is a small volume of free fluid adjacent to the right ovary. OSSEOUS STRUCTURES: T11 butterfly vertebra is present. Moderate degenerative disc disease is evident at L2-3 and L3-4. Severe facet arthropathy is present on the left at L4-5 and L5-S1.. CT/CT abdomen pelvis w IV con IMPRESSION: Moderate stool and gas is noted in the rectum. Very mild wall thickening is present at the rectosigmoid junction. There is also mildly increased vascularity mesentery along the colon consistent with gastroenteritis. Other etiologies such as ischemia or inflammatory bowel disease are less likely. Cholecystectomy. T11 butterfly vertebra. Absent left kidney. Fleischner guidelines were followed. Electronically signed by: Pollo Elizondo MD 03/22/2025 12:58 PM EDT RP Dictated By: Pollo Elizondo MD Signed By: Electronically signed by Pollo Elizondo MD 03/22/25 [id number] Radiology Impression Discussion of test interpretation with radiology: I have reviewed the radiologist's reading. Discharge Plan Discharge Clinical Impression: Gastroenteritis, Hypokalemia Patient Disposition: Home, Self-Care Instructions: Potassium Content of Foods List (ED), Hypokalemia (ED), Gastroenteritis (DC), Acute Diarrhea (ED) Additional Instructions: Your work up today was reassuring that you have a viral gastroenteritis. Your potassium was low at 3.0 today - it is crucial you follow up with your primary care provider about this for repeat levels. Follow up with your primary care provider. Return to the emergency department immediately if your symptoms worsen or if you develop any dizziness, shortness of breath, difficulty breathing, chest pain, blurry vision, loss of vision, nausea, vomiting, abdominal pain, fever, chills, back pain, or any other complaints. Sharon?seguimiento?con almaraz m?dico de atenci?n primaria. Acuda inmediatamente al servicio de urgencias si zach s?ntomas empeoran o si presenta falta de aliento, dificultad para respirar, dolor tor?cico, mareos, aturdimiento, dolor de espalda, dolor abdominal, fiebre, escalofr?os o cualquier otro s?ntoma. Please see the information below about our Patient Portal. If you are not yet enrolled in the [facility] Patient Portal, you will receive an enrollment email invitation following your visit to any [facility] care setting. You may also self-enroll in the Patient Portal by visiting our website: [email or web address] The following information is required to access the Patient Portal: - Your [facility] Medical Record Number - Your personal home email address (must match what is in your electronic medical record, Registration staff can assist with this) - Name - Date of Capabilities of the Patient Portal: - Message some providers - View upcoming appointments - Access your health summary, medical history, and visit history - View current conditions and allergies - View procedure and lab results - View your medications, including guidelines, side effects, and precautions - Complete pre-appointment questionnaires requested by your provider - Ready summary reports of your office visits and procedures To access the Patient Portal Mobile Jeff, follow these directions: - Search T[employer] in the [employer] Store or [employer] Store - Download the Jeff - Search for [facility] - Enter your login/password Portal del paciente Si usted no esta inscrito en el portal de pacientes de [facility], recibira kate invitacion de inscripcion despues de almaraz visita al [facility] o al [facility] via correo electronico. Tambien puede inscribirse voluntariamente en el portal de pacientes visitando nuestra pagina web: [email or web address] La siguiente informacion sera requerida para acceder al portal: - Almaraz daniel de historia medica de [facility] - Almaraz direccion de correo electronico personal - Nombre - Fecha de nacimiento Capacidades: Las siguientes capacidades estan disponibles en el portal de pacientes: - Enviar mensajes a algunos doctores - Verificar proximas citas - Acceso a almaraz historial de jean, registro medico e historial de visitas - Amy las condiciones actuales y alergias amy procedimientos y resultados del laboratorio - Amy zach medicamentos, incluyendo las pautas - Efectos secundarios y precauciones - Completar o llenar formularios / cuestionarios de - Citas solicitadas por almaraz doctor - Leer los resumenes de reportes medicos de zach visitas y procedimientos Geovanny acceder a la aplicacion movil: - [facility] [email or web address] en la [employer] Store o [employer] Store - Descargue la aplicacion - [facility] - Ingrese almaraz nombre de usuario / Contrasena Prescriptions: No Action peg 3350-electrolytes [Golytely] 236-22.74-6.74 -5.86 gram recon soln 240 ml PO Q10M 1 Days Qty: 4000 0RF Rx Instructions: until fecal effluent is clear; do not exceed a total volume of 2,000 mL (DME) QUAD CANE See Rx Instructions .Route .MEDSUPPLY Qty: 1 0RF Rx Instructions: As directed (DME) SHOWER CHAIR See Rx Instructions .Route .MEDSUPPLY Qty: 1 0RF Rx Instructions: As directed (DME) HANDHELD SHOWER HEAD See Rx Instructions .Route .MEDSUPPLY Qty: 1 0RF Rx Instructions: As directed Dexilant 60 mg capsule,biphase delayed releas 60 mg PO DAILY 90 Days Qty: 90 3RF hydrochlorothiazide 25 mg tablet 25 mg PO DAILY Qty: 90 1RF acetaminophen [Tylenol Extra Strength] 500 mg tablet 500 mg PO Q6H PRN (Reason: fever or pain) Qty: 14 0RF naproxen 500 mg tablet 500 mg PO BID PRN (Reason: pain) 10 Days Qty: 20 0RF clotrimazole [Lotrimin AF (clotrimazole)] 1 % cream 1 appl topical BID 14 Days Qty: 45 0RF loratadine 10 mg tablet 10 mg PO DAILY PRN (Reason: allergy symptoms) 90 Days Qty: 90 3RF cholecalciferol (vitamin D3) 25 mcg (1,000 unit) capsule 25 mcg PO DAILY 90 Days Qty: 90 3RF enalapril maleate 2.5 mg tablet 2.5 mg PO DAILY Qty: 90 3RF Referrals: Denys Gonsalves MD [Primary Care Provider, Internal Medicine] Interventions: ED Discharge Assessment Last Done: 03/22/25 13:30 Discharge Date/Time: 03/22/25 13:32 Print Language: Persian
[2025-03-22 09:37] LABS: Hematocrit 40.4 % (37.0-47.0); Hemoglobin 13.8 g/dl (12.0-16.0); Imm Gran Abs Auto 0.03 X10*3/uL (0.00-0.03); Imm Gran Pct Auto 0.5 % (0.0-0.4); Lymphocytes Absolute Auto 1.9 X10*3/uL (1.2-4.9); MANUAL DIFF FLAG SCAN; Mean Corpuscular HGB Conc 34.2 g/dl (31.0-35.0); Mean Corpuscular Hemoglobin 30.5 pg (27.0-33.0); Mean Corpuscular Volume 89.4 fL (80.0-98.0); NRBC Abs Auto 0.000 X10*3/uL (0.0-0.012); NRBC Pct Auto 0.0 /100WBC (0.0-0.2); Platelet Count 214 X10*3/uL (160-400); Red Blood Count 4.52 X10*6/uL (4.20-5.50); SCAN SMEAR FLAG 1; White Blood Count 6.0 X10*3/uL (4.8-10.8)
[2025-03-22 09:54] LABS: Alanine Aminotransferase 16 U/L (0-31); Albumin Level 4.2 g/dL (3.5-5.0); Alkaline Phosphatase 68 U/L (39-117); Anion Gap 12 (12-20); Aspartate Amino Transferase 21 U/L (5-31); Blood Urea Nitrogen 13 mg/dL (9-16); Calcium 10.0 mg/dL (8.4-10.2); Carbon Dioxide 28 mmol/L (22-29); Chloride 102 mmol/L (96-108); Creatinine Clr Calc Pharmacy 51.6; Estimated Glomerular Filt Rate > 60; Lipase 11 U/L (8-78); Magnesium 1.9 mg/dL (1.6-2.6); Potassium 3.0 mmol/L (3.3-5.1); Sodium 139 mmol/L (135-145); Total Protein 6.9 g/dL (6.5-8.0)
[2025-03-22] MEDS: Potassium Chloride Packet 20 MEQ PACKET 40 MEQ PO (12:10)
[2025-03-22] MEDS: iohexoL 350 MG/ML 100 ML INFUS..BTL IV (12:36)
--- NOTE | 2025-03-22 12:40 | PC.NURSE ---
Addendum entered by Lexy Jacome RN 03/22/25 12:41: Patient presents with c/o periumbilical pain with assoc diarrhea. Attempted to be seen yesterday but left without completing treatment. Alert and oriented, primarily pitcair[place] islander speaking. Lungs clear bilat. Respirations even and non-labored. Abdomen soft, non-tender with positive bowel sounds. Denies abd pain at this time. CT performed. Positive pedal pulses with no edema. Original Note: Medical History Osteoporosis Cataracts, bilateral Allergic rhinitis Vitamin D deficiency Overweight (BMI 25.0-29.9) Degenerative joint disease of right shoulder GERD without esophagitis Benign essential hypertension
--- OUTSIDE RECORDS SUMMARY | 2025-03-22 12:55 | XMS_ITS ---
Author Name Pranay CEJAN,BARBER SHOP OPERATOR,FAVIAN P,CORN SHELLER, Berenice Address [address] [place] [id number] Phone [phone] [facility] Care Team Providers Care Research/Program Director Name Role Phone Pranay Berenice Unavailable [phone] Unavailable Unavailable Unavailable Reason for Referral Not [...] EYE 3 TIMES A DAY 2024-09-18 2024-11-11 Imodium A-D 2 mg Tab [address] stool then 1 Q4H PRN for diarrhea 2025-03-18 No Data Available Problem List Problem Status Onset Date Resolved [...] 2024-11-11 N/A PAIN CONTIN GENCY PLANLast updated: 11/11/2024[place] to call for the following symptoms: Increased pain/ Joint swelling/ StiffnessPlanned intervention: Voltaren gel to affected area/ Apply heat to affected area/ Apply ice to affected areaDiarrheaKeep hydrated, can take Imodium 2 at first onset of loose stool, 1 after each loose stool. If dry mouth, unable to produce urine for 4 hours, cramping, blood in stool, call CB right right away Osteoarthritis Active 2023-09-11 N/A Rx: NSAID/ tylenol combination - stretching, range of motion exercise such as ( walking , cycling, or water exercise). rest when in pain exacerbation Refill of tylenol PRN Diarrhea Active 2025-03-18 N/A Summary: James kaur reports that some days ago, she was eating her regular food, she ate half a donut and started to have abd pain, constipation, ate some crumbs, cramps, now diarrhea.Diarrhea yesterday and today. She states little diarrhea today. she denies fever, chills, n/v.She is requesting Tylenol and Imodium; she states that this worked well for her. However, RN does not see this medication on her meds list.Applicable vital signs: BP: 143/83 - BP medication HR: 93# hours/days of symptoms: 2 daysMedications/interventi ons member has tried for symptoms / result of interventions: Imodium - HelpsTylenol for headache - Good reliefRN interventions/care plan: Encouraged hydration, small frequent sips of water, electrolyte drink, bland diet, Tylenol prn.Took Imodium today but only 1 pill, had 2 loose stool today. Last BM not watery. larger amount. Mouth not dry, able to keep fluids down, urinating ok, light yellow. Keep hydrated, can take Imodium 2 at first onset of loose stool, 1 after each loose stool. If dry mouth, unable to produce urine for 4 hours, cramping, blood in stool, call CB right right away Encounters Encounters Type Facility Date of Service Diagnosis/Co mplaint New patient,40-59min; chronic exacerbation, 2 stable chronic or 1 acute illness add add modifier 95 for video (do not use for phone, instead use 60823-84) [facility] [place]2023 Essential (primary) hypertensionGastro-esophageal reflux disease without esophagitisPersonal history of (healed) traumatic fractureUnspecified osteoarthritis, unspecified siteUnspecified cataract New patient,40-59min; chronic exacerbation, 2 stable chronic or 1 acute illness add add modifier 95 for video (do not use for phone, instead use 11742-87) [facility] [place] New patient,40-59min; chronic exacerbation, 2 stable chronic or 1 acute illness add add modifier 95 for video (do not use for phone, instead use 44885-55) [facility], ([place] 09[place] New patient,40-59min; chronic exacerbation, 2 stable chronic or 1 acute illness add add modifier 95 for video (do not use for phone, instead use 11456-62) [facility] [place] New patient,40-59min; chronic exacerbation, 2 stable chronic or 1 acute illness add add modifier 95 for video (do not use for phone, instead use 77062-52) [facility] [place] New patient,40-59min; chronic exacerbation, 2 stable chronic or 1 acute illness add add modifier 95 for video (do not use for phone, instead use 91021-77) [facility] [place] New patient,40-59min; chronic exacerbation, 2 stable chronic or 1 acute illness add add modifier 95 for video (do not use for phone, instead use 31149-36) [facility] [place] Estab. patient 30-39min; chronic exacerbation, 2 stable chronic or 1 acute illness add add modifier 95 for video, (do not use for phone, instead use 58243-25) [facility] [place]2023 Essential (primary) hypertensionGastro-esophageal reflux disease without [...] (do not use for phone, instead use 77322-71) [facility] [place] Estab. patient 30-39min; chronic exacerbation, 2 stable chronic or 1 acute illness add add modifier 95 for video, (do not use for phone, instead use 04680-38) [facility] [place] Estab. patient 30-39min; chronic exacerbation, 2 stable chronic or 1 acute illness add add modifier 95 for video, (do not use for phone, instead use 05953-24) [facility] [place] Estab. patient 30-39min; chronic exacerbation, 2 stable chronic or 1 acute illness add add modifier 95 for video, (do not use for phone, instead use 58546-46) [facility] [place] Estab. patient 30-39min; chronic exacerbation, 2 stable chronic or 1 acute illness add add modifier 95 for video, (do not use for phone, instead use 82199-90) [facility] [place] Estab. patient 30-39min; chronic exacerbation, 2 stable chronic or 1 acute illness add add modifier 95 for video, (do not use for phone, instead use 37034-92) [facility] [place] Estab. patient 30-39min; chronic exacerbation, 2 stable chronic or 1 acute illness add add modifier 95 for video, (do not use for phone, instead use 37413-98) [facility] [place] Estab. patient 30-39min; chronic exacerbation, 2 stable chronic or 1 acute illness add add modifier 95 for video, (do not use for phone, instead use 24056-25) [facility] ([place]20[place] Estab. patient 30-39min; chronic exacerbation, 2 stable chronic or 1 acute illness add add modifier 95 for video, (do not use for phone, instead use 26107-00) [facility] [place]20[place] Estab. patient 30-39min; chronic exacerbation, 2 stable chronic or 1 acute illness add add modifier 95 for video, (do not use for phone, instead use 52118-56) [facility] [place]2023 No Data Available [facility] [place]24 Anxiety disorder, unspecifiedOther problems related to medical facilities and other health care No Data Available [facility] [place]20[place] No Data Available [facility] [place] Estab. patient 20-29min; 1 stable chronic or 2 minor; add add modifier 95 for video, modifier 93 for phone [facility] [place]2024 Hypertensive chronic kidney disease w stg 1-4/unsp chr kdnyChronic kidney disease, stage 2 (mild)Gastro-esophageal reflux disease without esophagitisUnspecified osteoarthritis, unspecified siteOther problems related to medical facilities and other health care Estab. patient 20-29min; 1 stable chronic or 2 minor; add add modifier 95 for video, modifier 93 for phone [facility] [place] Estab. patient 20-29min; 1 stable chronic or 2 minor; add add modifier 95 for video, modifier 93 for phone [facility] [place] Estab. patient 20-29min; 1 stable chronic or 2 minor; add add modifier 95 for video, modifier 93 for phone [facility] [place] Estab. patient 20-29min; 1 stable chronic or 2 minor; add add modifier 95 for video, modifier 93 for phone [facility] [place] Estab. patient 20-29min; 1 stable chronic or 2 minor; add add modifier 95 for video, modifier 93 for phone [facility] [place] Estab. patient 20-29min; 1 stable chronic or 2 minor; add add modifier 95 for video, modifier 93 for phone [facility] [place] Estab. patient 20-29min; 1 stable chronic or 2 minor; add add modifier 95 for video, modifier 93 for phone [facility] [place] Estab. patient 10-29min; 1 minor problem; add add modifier 95 for video, modifier 93 for phone [facility] [place] 03[place]2025 Diarrhea, unspecifiedOther problems related to medical facilities and other health careUnspecified osteoarthritis, unspecified site Vital Signs Date of Collection Vitals 2023-09-11 [...] - 128.0 mm[Hg]Pain Scale - 7.0 {score} 2025-03-18 09:55:26 Heart Rate - 93.0 /m in Social History Social History Social History Observation Description Effec tive Time Current Smoking Status Never smoker 8 Sex Female Gender identity Woman History of Procedures Procedures Service Procedure code Service date Servicing provider Phone# New patient,40-59min; chronic exacerbation, 2 stable chronic or 1 acute illness add add modifier 95 for video (do not use for phone, instead use 53190-98) [id number] 2023-09-11 No Data Available No Data Availa [...] (do not use for phone, instead use 52879-31) 79305 2023-10-28 No Data Available No Data Availa [...] ble Advance care planning discussed and documented advance care plan or surrogate decision-maker was [...] No Data Avail able No Data Available [id number] 2024-06-16 No Data Available No Data Available Pain Assessment - NO pain present (1126F) 1126F 2024-06-16 No Data Available No Data A vailable Medication List Documented (1159F) 1159F 2024-06-16 No Data Available No Data Karissa ilable Estab. patient 20-29min; 1 stable chronic or 2 minor; add add modifier 95 for video, modifier 93 for phone [id number] 2024-11-11 No Data Available No Data Availa [...] ble Advance care planning discussed and documented advance care plan or surrogate decision-maker was documented in the medical record. (1123F) 1123F 2024-11-11 No Data Available No Data Availa ble Pain Assessment - Pain Documented on a Pain Scale (1125F) 1125F 2024-11-11 No Data Available No Data Karissa ilable BMI obtained (3008F) 3008F 2024-11-11 No Data Availab le No Data Available Estab. patient 10-29min; 1 minor problem; add add modifier 95 for video, modifier 93 for phone [id number] 2025-03-18 No Data Available No Data Availa ble Functional Status Functional Category Effective Dates Cognition [...] to medical facilities and other health care 2025-03-18 09:55:26 DiarrheaSummary: Dion chinchilla reports that some days ago, she was eating her regular food, she ate half a donut and started to have abd pain, constipation, ate some crumbs, cramps, now diarrhea.Diarrhea yesterday and today. She states little diarrhea today. she denies fever, chills, n/v.She is requesting Tylenol and Imodium; she states that this worked well for her. However, RN does not see this medication on her meds list.Applicable vital signs: BP: 143/83 - BP medication HR: 93# hours/days of symptoms: 2 daysMedications/interventions member has tried for symptoms / result of interventions: Imodium - HelpsTylenol for headache - Good reliefRN interventions/care plan: Encouraged hydration, small frequent sips of water, electrolyte drink, bland diet, Tylenol prn.Took Imodium today but only 1 pill, had 2 loose stool today. Last BM not watery. larger amount. Mouth not dry, able to keep fluids down, urinating ok, light yellow. Keep hydrated, can take Imodium 2 at first onset of loose stool, 1 after each loose stool. If dry mouth, unable to produce urine for 4 hours, cramping, blood in stool, call CB right right awayOther problems related to medical facilities and other health careDiarrheaKeep hydrated, can take Imodium 2 at first onset of loose stool, 1 after each loose stool. If dry mouth, unable to produce urine for 4 hours, cramping, blood in stool, call CB right right awayOsteoarthritisRx: NSAID/tylenol combination - stretching, range of motion exercise such as ( walking , cycling, or water exercise). rest when in pain exacerbation Refill of tylenol PRN Plan of Care Date of Service Plans 2023-09-11 06:59:25 Pain Assessment - Pa in Documented (1125F)Medication Review by prescribing provider or pharmacist documented (1160F)Medication List Documented (1159F)Functional Status Assessed (1170F)Advance Care Directive Advance care planning discussion documented in the medical record (1158F)BMI obtained (3008F)Televideo new patient,40-59min; chronic exacerbation, 2 stable chronic or 1 acute illness add modifier 95Advance care planning discussed and documented advance care plan or surrogate decision-maker was documented in the medical record. (1123F)Advance care planning discussed and documented in the medical record beneficiary/patient did not wish to or was [...] she has an appt with her quality assurance lab technician to discuss surgical intervention options. 2023-10-28 07:08:07 Medication Review by prescribing provider or pharmacist documented (1160F)Medication List Documented (1159F)Functional Status Assessed (1170F)Advance Care Directive Advance care planning discussion documented in the medical record (1158F)BMI obtained (3008F)SBP < 130 (3074F)DBP <80 (3078F)Televideo 30-39min; chronic exacerbation, 2 stable chronic or 1 acute illness add modifier 95Advance care planning discussed and documented advance care plan or surrogate decision-maker was [...] she has an appt with her quality assurance lab technician to discuss surgical intervention options.cough and chest [...] joint pain increased Please remember to call [facility] to see PCP. Follow-up with [facility] as needed for any acute or disease education needs that may arise 07/04.what should be done when the member calls: see each individual diagnosis for contingency plan 2024-06-16 09:54:03 Phone (patient, pare nt, or guardian); 5-10 minutes of medical discussion (no modifier 95)Continue to see PCP. Follow-up with [facility] as needed for any acute or disease education needs that may arise 07/04.states she had a grandson (15 years old) that was there for a day and she was on edge, she denies any abuse from him or that he argues but states he is naturally anxious and feels she is now anxious at times. [employer] restoration officer seems to be coherent, denies any psych [...] call CBContinue to see PCP. Follow-up with [facility] as needed for any acute or disease education needs that may arise 07/04.what should be done when the member calls: see each individual diagnosis for contingency plan 2024-11-11 13:15:12 Functional Status As sessed (1170F)Advance Care Directive Advance care planning discussion documented in the medical record (1158F)Advance care planning discussed and documented advance care plan or surrogate decision-maker was [...] affected area/ Apply ice to affected area 2025-03-18 09:55:26 New Imodium A-D 2 mg Tab 2 tablets after first stool then 1 Q4H PRN for diarrhea #20 tablet [id number] Tylenol Extra Strength 500 mg Tab 2 tablets orally one time TID PRN pain #90 tablet [id number] up plan for acute symptoms:Televideo 10-29min; 1 minor problem; add add modifier 95 for video, modifier 93 for phoneContinue to see PCP. Follow-up with [facility] as needed for any acute or disease education needs that may arise 07/04. Goals Date Goal 2023-09-11 Remember to contact [...] up appointments with established PCP and Specialist 2025-03-18 Keep hydrated, can t caio Imodium 2 at first onset of loose stool, 1 after each loose stool. If dry mouth, unable to produce urine for 4 hours, cramping, blood in stool, call CB right right away Health Concerns Date Concern 2025-03-18 Patient/Guardian thomas cruz to visit via telehealth.Visit completed via: [ ] audio and video; [x] audio only 2025-03-18 Concerns for today's visit:Summary: Member reports that some days ago, she was eating her regular food, she ate half a donut and started to have abd pain, constipation, ate some crumbs, cramps, now diarrhea.Diarrhea yesterday and today. She states little diarrhea today. she denies fever, chills, n/v.She is requesting Tylenol and Imodium; she states that this worked well for her. However, RN does not see this medication on her meds list.Applicable vital signs: BP: 143/83 - BP medication HR: 93# hours/days of symptoms: 2 daysMedications/interventions member has tried for symptoms / result of interventions: Imodium - HelpsTylenol for headache - Good reliefRN interventions/care plan: Encouraged hydration, small frequent sips of water, electrolyte drink, bland diet, Tylenol prn.Took Imodium today but only 1 pill, had 2 loose stool today. Last BM not watery. larger amount. Mouth not dry, able to keep fluids down, urinating ok, light yellow. 2025-03-18 Most recent hospital stay or ER visit:No ER visits or hospitalizations documented in [facility] in last 90 days. Member denies ER visits or hospitalizations in last 90 days.
[2025-03-22 13:27] VITALS: BP 162/72; PULSE 60; RESP 18; TEMP 36.5; O2SAT 95
[2025-03-22 13:30] VITALS: BP 162/72; PULSE 60; RESP 18; TEMP 36.5; O2SAT 95
== END 2025-03-22 13:32 | disposition home or self-care (01) ==
PROVIDERS: Emergency Medicine; Emergency Provider Emergency Medicine Emergency Medical Services; PCP Internal Medicine
DX: K52.9 Noninfective gastroenteritis and colitis, unspecified (principal); E87.6 Hypokalemia; R10.30 Lower abdominal pain, unspecified
CPT/HCPCS: 36415; 74177; 80048; 80076; 83690; 83735; 85025; 99284; Q9967

== ENCOUNTER → 2025-03-22 12:07 | Outpatient (BNV) | payer OTHER, SELFPAY | PROVIDERS: PCP Internal Medicine; Visit Provider Radiology Diagnostic Radiology | DX: R10.9 Unspecified abdominal pain (principal); R19.7 Diarrhea, unspecified | CPT/HCPCS: 74177 ==

== ENCOUNTER 2025-08-19 12:37 | Outpatient (AMB) | payer OTHER, SELFPAY ==
--- NOTE | 2025-08-19 12:51 | MHC.PC.OV ---
Vital Signs 08/19/25 12:52 Height 5 ft 1 in Weight 129 lb 4 oz BMI 24.4 BP 126/70 Blood Pressure Location Lt brachial Position Sitting Pulse 80 Pulse Source Pulse Oximeter Pulse Oximetry (%) 99 Oxygen Delivery Method Room Air Intake Visit Reasons: Annual Exam - see comments Flight Deck Officer Required: No Accompanied by: Significant Other Allergies No Known Allergies (No Known Allergies*) Allergy (Verified 08/19/25 13:23) Medication List - Last Reconciled 08/19/25 by Denys Gonsalves MD acetaminophen (Tylenol Extra Strength) 500 mg PO Q6H PRN cholecalciferol (vitamin D3) 25 mcg PO DAILY 90 days clotrimazole 1% (Lotrimin AF (clotrimazole)) 1 appl topical BID 2 weeks dexlansoprazole (Dexilant) 60 mg PO DAILY 90 days enalapril maleate 2.5 mg PO DAILY [HANDHELD SHOWER HEAD As directed] hydrochlorothiazide 25 mg PO DAILY loratadine 10 mg PO DAILY PRN 90 days naproxen 500 mg PO BID PRN 10 days peg 3350-electrolytes 236-22.74-6.74 -5.86 gram (Golytely) 240 mL PO Q10M 1 day [QUAD CANE As directed] [SHOWER CHAIR As directed] Tobacco use date assessed: 08/19/25 Fall risk assessment: No Falls in past year Last assessed Fall Risk: 08/19/25 Dental Screening Dental Screen Date: 08/19/25 Did you have a dental visit in the last 12 months?: No Did you have a dental problem in the last 6 months where you did not have access to dental care?: No Was dental information given to patient?: Patient has dentist HPI Annual Exam - see comments HPI Details Patient comes in today for her annual physical examination States that she feels okay except for on and off pain over her left TMJ area lately States that she has no trouble swallowing or eating/drinking She denies any headaches or dizziness Denies any chest pains, no increased SOB No nausea/vomiting, no abdominal pain No change in bowel habits noted She denies any acute urinary symptoms She had her annual mammogram last done in February 2025 Her screening colonoscopy was last done with Dr. Talavera a couple of years ago on 12/10/2022 - she had 2 polyps removed and one was a tubular adenoma on pathology and was advised to get a repeat colonoscopy done in 3 years At her current age, she no longer has to keep up with yearly gynecology exam and pap smears States that she went to the lab yesterday morning to get her labs done but was advised that there were no orders in her chart then She would also like to get her flu shot here today PFSH Medical History Osteoporosis Cataracts, bilateral Allergic rhinitis Vitamin D deficiency Overweight (BMI 25.0-29.9) Degenerative joint disease of right shoulder GERD without esophagitis Benign essential hypertension Surgical History (Updated 08/19/25 @ 13:42 by Denys Gonsalves MD) H/O local excision of skin lesion History of colonoscopy History of cholecystectomy Family History Father CVD (cardiovascular disease) Mother No problems noted. Daughter In good health Sister In good health Sister In good health Sister In good health Brother In good health Social History Housing: Apartment Alcohol intake: never Patient Tobacco Use Status: Never used Tobacco e-Cigarette/Vaping Use: Never Used Second Hand Smoke Exposure: Yes service: No Current occupational status: retired Cognitive needs: No Hearing needs: No Vision needs: Yes (Glasses) Questionnaire PHQ-9 Over the last 2 weeks, how often have you been bothered by any of the following problems? 1. Little interest or pleasure in doing things: not at all 2. Feeling down, depressed, or hopeless: not at all 3. Trouble falling or staying asleep, or sleeping too much: not at all 4. Feeling tired or having little energy: not at all 5. Poor appetite or overeating: not at all 6. Feeling bad about yourself - or that you are a failure or have let yourself or your family down: not at all 7. Trouble concentrating on things, such as reading the newspaper or watching television: not at all 8. Moving or speaking so slowly that other people could have noticed. Or the opposite - being so fidgety or restless that you have been moving around a lot more than usual: not at all 9. Thoughts that you would be better off or of hurting yourself in some way: not at all Total score: 0 Depression Screening Interpretation: Negative Depression Screening Done: Yes 41529 - PHQ-9 Billing: Yes Source: Developed by Drs. Charli Carlson, Nupur Persaud, Darell Lee and colleagues, with an educational jonathon from [employer]. Thrive Questionnaire Date Thrive assessed: 08/19/25 I am a: Patient What is your living situation today?: I have a steady place to live Within the past 12 months, did the food you bought not last and you didn't have the money to get more?: Never true Within the past 12 months, did you worry whether your food would run out before you got money to buy more?: Never true Do you have trouble paying for medicines?: No Do you have trouble getting transportation to medical appointments?: No Do you have trouble paying your heating and electricity bill?: No Do you have trouble taking care of your child, family member or friend?: No Do you have trouble with day-to-day activities such as bathing, preparing meals, shopping, managing finances, etc.?: No Are you currently unemployed and looking for a job?: No Are you interested in more education?: No Please select the resources that you would like help with: None Currently or been in a relationship where the following occur: No concerns reported THRIVE Score: 0 AUDIT C Alcohol Use Questionnaire (AUDIT-C) 1. How often do you have a drink containing alcohol?: Never 3. How often do you have six or more drinks on one occasion?: Never Total Score: 0 Score Reviewed/Action Taken: Yes MARY-7 AMB Questionnaire MARY-7 Date MARY - 7 assessed: 08/19/25 Feeling nervous, anxious, or on edge: 0 = Not at all Not being able to stop or control worryin = Not at all Worrying too much about different things: 0 = Not at all Trouble relaxin = Not at all Being so restless that it is hard to sit still: 0 = Not at all Becoming easily annoyed or irritable: 0 = Not at all Feeling afraid as if something awful might happen: 0 = Not at all Total MARY-7 score (0-4 normal; 5-9 mild; 10-14 moderate; 15-21 severe): 0 Source: Developed by Drs. Charli Carlson, Nupur Persaud, Darell Lee and colleagues, with an educational jonathon from [employer]. Review of Systems Const Denies chills, Denies fatigue, Denies fever(s), Denies headache(s) and Denies malaise Eyes Denies blurry vision, Denies change in vision, Denies irritation and Denies itchy eyes ENT Details: (+) on and off pain over the left TMJ area Denies dysphagia, Denies dizziness, Denies otalgia, Denies headache(s), Denies nasal congestion, Denies neck pain, Denies odynophagia, Denies sinus pain and Denies sore throat Card Denies chest pain, Denies rapid heart rate, Denies irregular heart rhythm, Denies palpitations and Denies dyspnea Resp Denies chest congestion, Denies cough, Denies dyspnea and Denies wheezing GI Denies abdominal pain, Denies bloating, Denies constipation, Denies dysphagia, Denies heartburn, Denies diarrhea, Denies nausea, Denies odynophagia and Denies vomiting Denies hematuria, Denies difficulty voiding, Denies nocturia, Denies dysuria, Denies urinary incontinence and Denies urinary urgency Musc Denies back pain, Denies arthralgias, Denies joint swelling, Denies muscle weakness and Denies neck pain Skin/Breast Denies breast pain, Denies breast mass, Denies change in pigmentation, Denies lesions, Denies rash and Denies unusual bruising Neuro Denies dizziness, Denies headache(s) and Denies paresthesias Psych Denies anxiety and Denies depression Endo Denies fatigue and Denies palpitations Aries/Lymph Denies easy bruising Aller/Immun Denies itchy eyes and Denies wheezing Physical exam (Primary Care) Vital Signs: Last Vital Signs Pulse 80 08/19/25 12:52 BP 126/70 08/19/25 12:52 Pulse Ox 99 08/19/25 12:52 Oxygen Delivery Method Room Air 08/19/25 12:52 BMI result Body Mass Index 24.4 Tobacco/Smoking Status: Tobacco use Status Tobacco use date assessed 08/19/25 08/19/25 12:56 Patient Tobacco Use Status Never used Tobacco 08/19/25 12:56 e-Cigarette/Vaping Use Never Used 08/19/25 12:56 PHQ-9: PHQ-9 Score PHQ-9: Total score 0 08/19/25 13:24 Depression Screening Interpretation: Negative Thrive Assessment: Date of Thrive Assessment Date Thrive assessed 08/19/25 08/19/25 12:56 Currently or been in a relationship where the following occur: No concerns reported Const General: no acute distress, alert and awake Orientation/consciousness: patient oriented x3 [facility] Head: Yes normocephalic and Yes atraumatic Ears: external ears normal, TM's normal bilaterally and EAC's normal General nose exam: No nasal discharge present Face and sinus: Yes normal facial exam and Yes sinuses nontender Teeth and gingiva: dentition normal Throat: Yes posterior oropharynx normal and Yes tonsils normal (no TP congestion) Eyes Eyelids: Yes eyelids normal Conjunctivae: conjunctivae normal Pupils: Equal, round and reactive pupils present EOM: EOMs intact bilaterally Neck Neck: Yes no lymphadenopathy and Yes supple Thyroid: Thyroid normal Resp Auscultation: clear to auscultation bilaterally, no rales and no wheezes Cardio Rate: regular rate Rhythm: regular rhythm Heart sounds: no murmurs GI Palpation (GI): Soft to palpation, nontender and No hepatosplenomegaly present Auscultation: normal bowel sounds General: Yes no CVA tenderness Back/Spine/Pelvis Back: no CVA tenderness Thoracic/Lumbar Spine: thoracic and lumbar spine normal to inspection Skin Lesions: no lesions Rashes: no rashes Neuro General: patient oriented x3, moves all extremities, no focal motor deficits and CN's II-XI intact bilaterally Cranial nerves: Yes Equal, round and reactive pupils present Cognition (Neuro): normal cognition Gait exam (Neuro): Normal gait present Extrem General: Yes no clubbing, cyanosis or edema Right upper extremity: shoulder/upper arm Details: tenderness Location: of the A-C joint Left upper extremity: shoulder/upper arm Details: tenderness Location: of the A-C joint and normal ROM Right lower extremity: knee Details: tenderness Location: of the medial joint line and of the lateral joint line and normal ROM Left lower extremity: hip/thigh Details: tenderness Location: of the hip and knee Details: tenderness Location: of the medial joint line and of the lateral joint line and normal ROM Office Procedures Flu Questionnaire Does the patient have a severe egg allergy?: No Does the patient have severe life threatening allergies?: No Does the patient have a fever or illness today?: No Has the patient ever had Guillain-Houston Syndrome?: No Has the patient ever had any past reaction to a flu shot?: No Immunizations Fluarix [id number] (PF) 45 mcg (15 mcg x 3)/0.5 mL IM syringe Performing Provider: Denys Gonsalves MD Performing Location[facility] [place] [facility] Administered by: JO Holcomb on 08/19/25 13:32 Dose Route Admin Location Dispensed Lot Number Expiration Date NDC [employer] Controller 0.5 mL IM Right Deltoid 0.5 mL [id number] 03/14/26 80766-219-10 [employer] VIS Given Date VIS Provided VIS Publication Date 08/19/25 Single Vaccine 24 Eligibility Eligibility Date Funding Source Not [facility] Eligible 08/19/25 Private Coding Level of Care Code Est Pt Prev Care >65y(97320) Diagnoses Annual physical exam Z00.00 Benign essential hypertension I10 Arthritis of both shoulders M19.011; M19.012 Laterality: bilateral Bilateral primary osteoarthritis of knee M17.0 Age-related osteoporosis without current pathological fracture M81.0 Osteoporosis type: age-related Presence of current pathological fracture: without current pathological fracture Left hip pain M25.552 Hypercalcemia E83.52 Vitamin D deficiency E55.9 GERD without esophagitis K21.9 Allergic rhinitis, unspecified seasonality, unspecified trigger J30.9 Allergic rhinitis trigger: unspecified Allergic rhinitis seasonality: unspecified Additional Codes PHQ-9 - 63547 - PHQ-9 Billing: Yes ([id number]) Assessment & Plan Assessment & Plan (1) Annual physical exam: Code(s): Z00.00 - Encounter for general adult medical examination without abnormal findings Category: Medical Plan: Check labs MITCHELL to complete her annual exam today She had her annual mammogram last done in February 2025 Her screening colonoscopy was last done with Dr. Talavera a couple of years ago on 12/10/2022 - she had 2 polyps removed and one was a tubular adenoma on pathology and was advised to get a repeat colonoscopy done in 3 years At her current age, she no longer has to keep up with yearly gynecology exam and pap smears Her BMD was last done in October 2024 and revealed (+) osteoporosis (2) Benign essential hypertension: Code(s): I10 - Essential (primary) hypertension Category: Medical Plan: Reinforced low sodium diet - goal is systolic BP of at least 130 to 140 mm or less Continue Enalapril 2.5 mg QD and HCTZ 25 mg QD (3) Arthritis of shoulder: Comment: (+) degenerative joint disease of shoulders bilaterally Code(s): M19.019 - Primary osteoarthritis, unspecified shoulder Category: Medical Qualifiers: Laterality: bilateral Qualified Code(s): M19.011 - Primary osteoarthritis, right shoulder; M19.012 - Primary osteoarthritis, left shoulder Plan: MRI of the shoulder done on 05/12/2019 showed (+) complex tear of the supraspinatus tendon, degenerative tear of the glenoid labrum and moderate glenohumeral and acromioclavicular osteoarthritis X-rays of the left shoulder done back in July 2022 revealed degenerative osteoarthritis of the glenohumeral and acromioclavicular joints Patient remains adamant about not wanting any surgery or joint replacement done on her shoulders or knees States that her shoulder and knee pains have improved a lot with cortisone injections from orthopedics and they have been mostly manageable so far Follow up with orthopedics as scheduled (4) Bilateral primary osteoarthritis of knee: Code(s): M17.0 - Bilateral primary osteoarthritis of knee Category: Medical Plan: Patient remains unwilling to undergo any surgery or joint replacement on her shoulders or knees States that her shoulder and knee pains have improved a lot with cortisone injections from orthopedics and they have been mostly manageable lately Follow up with orthopedics as scheduled (5) Osteoporosis: Code(s): M81.0 - Age-related osteoporosis without current pathological fracture Category: Medical Qualifiers: Osteoporosis type: age-related Presence of current pathological fracture: without current pathological fracture Qualified Code(s): M81.0 - Age-related osteoporosis without current pathological fracture Plan: Her BMD done in October 2024 revealed (+) osteoporosis, with a T-score of -2.7 in the lumbar spine Urine NTx done in December 2024 came back normal Have advised patient again to make sure she takes her oral calcium and vitamin-D supplements daily and to try to get some regular exercise and increase her physical activity as tolerated Discussed Tx options with her, including oral bisphosphonates, but patient declined at this time (6) Left hip pain: Code(s): M25.552 - Pain in left hip Category: Medical Plan: X-rays of the left hip done back in December 2024 revealed (+) mild joint space narrowing Have advised patient that we can also refer her to orthopedics for her left hip if it continues to bother her (7) Hypercalcemia: Code(s): E83.52 - Hypercalcemia Category: Medical Plan: Patient has been noted consistently to have mild hypercalcemia on her recent labs over the past couple of years but her serum calcium level was normal at 9.9 on her most recent labs from a few months ago PTH level done back in October 2023 revealed a mildly elevated PTH level of 91.4; this has decreased to 77.7 on her recent labs done a few months ago Her Vitamin D level is normal Will recheck these and continue to monitor these closely for now (8) Vitamin D deficiency: Code(s): E55.9 - Vitamin D deficiency, unspecified Category: Medical Plan: Continue Vitamin D3 1000 units QD (9) GERD without esophagitis: Code(s): K21.9 - Gastro-esophageal reflux disease without esophagitis Category: Medical Plan: Dietary restrictions reinforced Continue Dexilant 60 mg QD (10) Allergic rhinitis: Code(s): J30.9 - Allergic rhinitis, unspecified Category: Medical Qualifiers: Allergic rhinitis trigger: unspecified Allergic rhinitis seasonality: unspecified Qualified Code(s): J30.9 - Allergic rhinitis, unspecified Plan: Continue Loratadine 10 mg QD PRN Plan Follow up in 4 months Per request, flu vaccine was given to patient in the office today Orders: Orders Comprehensive [place]. Panel Fast Today E78.00 - Pure hypercholesterolemia, unspecified, Z00.00 - Encounter for general adult medical examination without abnormal findings TSH reflex Free T4 Today E78.00 - Pure hypercholesterolemia, unspecified, Z00.00 - Encounter for general adult medical examination without abnormal findings Influenza [id number] Immunization Today Z23 - Encounter for immunization Complete Blood Count Auto Diff Today D64.9 - Anemia, unspecified, Z00.00 - Encounter for general adult medical examination without abnormal findings Lipid Panel Today E78.00 - Pure hypercholesterolemia, unspecified, Z00.00 - Encounter for general adult medical examination without abnormal findings UA CC w/rflx Micro + Cult Today R30.0 - Dysuria, Z00.00 - Encounter for general adult medical examination without abnormal findings Vitamin D 25-OH Total Today E55.9 - Vitamin D deficiency, unspecified, Z00.00 - Encounter for general adult medical examination without abnormal findings Calcium, Ionized Today E83.52 - Hypercalcemia Parathyroid Hormone Intact Today E83.52 - Hypercalcemia
[2025-08-19 12:52] VITALS: BP 126/70; PULSE 80; O2SAT 99; BMI 24.4
== END 2025-08-19 13:37 | disposition home or self-care (01) ==
LOC: HO.HMCH 12:37
PROVIDERS: PCP Internal Medicine; Visit Provider Internal Medicine
DX: Z00.00 Encounter for general adult medical examination without abnormal findings (principal); I10 Essential (primary) hypertension; M19.011 Primary osteoarthritis, right shoulder; M19.012 Primary osteoarthritis, left shoulder; M17.0 Bilateral primary osteoarthritis of knee; M81.0 Age-related osteoporosis without current pathological fracture; M25.552 Pain in left hip; E83.52 Hypercalcemia; E55.9 Vitamin D deficiency, unspecified; K21.9 Gastro-esophageal reflux disease without esophagitis; J30.9 Allergic rhinitis, unspecified; Z23 Encounter for immunization

== ENCOUNTER → 2025-08-19 12:37 | Outpatient (BNVA) | payer OTHER, SELFPAY | PROVIDERS: PCP Internal Medicine; Visit Provider Internal Medicine | DX: Z00.00 Encounter for general adult medical examination without abnormal findings (principal); I10 Essential (primary) hypertension; M19.011 Primary osteoarthritis, right shoulder; M19.012 Primary osteoarthritis, left shoulder; M17.0 Bilateral primary osteoarthritis of knee; M81.0 Age-related osteoporosis without current pathological fracture; M25.552 Pain in left hip; E83.52 Hypercalcemia; K21.9 Gastro-esophageal reflux disease without esophagitis; J30.9 Allergic rhinitis, unspecified; Z13.31 Encounter for screening for depression; Z13.39 Encounter for screening examination for other mental health and behavioral disorders; Z23 Encounter for immunization | CPT/HCPCS: 90471; 90656; 96127; 99397 ==